=== PATIENT | female | born 2000 | race Caucasian/White ===

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

== ENCOUNTER 2023-05-25 14:48 | Emergency (ER) | payer OTHER, MEDICAID, SELFPAY ==
[2023-05-25 14:49] VITALS: BP 132/87; PULSE 100; RESP 18; TEMP 35.9; O2SAT 98; BMI 27.0
--- NOTE | 2023-05-25 15:12 | ED.VIS.FEGU ---
HPI HPI - Female History of Present Illness Chief Complaint: Vag Bld, Preg Informant: patient Narrative Narrative: Patient is a 22-year-old female G1, P0 presenting with concern for miscarriage. Patient's last menstrual period was April 05 which gives her an estimated due date of January 09 and places her at 7 weeks 1 day. Patient states that on Monday of this week (3 days ago) she had a positive test they did an ultrasound. She was told she was measuring approximately 5 weeks 1 day and there was a flutter/sac seen. Patient notes over the past few days she has had vaginal bleeding. She states she notices a little bit of blood on her underwear when she wipes there is blood. She states is brown and red in color. Denies abnormal discharge. Denies any urinary symptoms. Is not having cramping manage is some mild discomfort on her right side. No other complaints. Does plan on following up with [facility]. Her first appointment is June 05 per patient. PFSH PFSH Home Medications norgestimate 0.25 mg-ethinyl estradiol 35 mcg tablet (Sprintec (28)) 1 tab PO DAILY 05/24/18 [History Last Taken Unknown] Allergy/AdvReac Type Severity Reaction Status Date / Time No Known Allergies Allergy Verified 05/25/23 14:49 Social History Smoking Status: Never smoker ROS ROS ED Constitutional Constitutional ED: Denies chills or fever(s) Gastrointestinal Gastrointestinal: Denies abdominal pain, nausea or vomiting Genitourinary Genitourinary ED: Reports other Details: Vaginal bleeding, positive test ; Denies dysuria or urinary frequency Musculoskeletal Musculoskeletal: Denies arthralgias or myalgias Integumentary Denies rash Psychiatric Psychiatric: Reports anxiety Hematologic/Lymphatic Hematologic/Lymphatic: Denies easy bleeding or easy bruising EXAM Physical Exam Const Vital Signs: 05/25/23 14:49 Temperature 96.7 F L Temperature Source Temporal Pulse Rate 100 Respiratory Rate 18 Blood Pressure 132/87 H Blood Pressure Mean 102 Pulse Ox 98 Oxygen Delivery Method Room Air Positive well nourished and well developed General Appearance ED: well developed and NAD HEENT Reports moist mucous membranes Chest Wall inspection of chest normal and palpation of chest normal Resp normal respiratory effort and clear to auscultation bilaterally Cardio regular rate and regular rhythm GI normal to inspection, nondistended, normoactive bowel sounds, soft to palpation and non-tender Extremity normal to inspection Neuro oriented x3 Sensorium / Orientation: alert Motor Exam: Negative for general weakness Psych mental status grossly normal Skin no rashes or lesions noted and no wounds MDM MDM MDM Narrative Medical decision making narrative: Patient evaluated for vaginal bleeding with positive . She states that she has had a confirmed IUP at the center however we do not have records of this. Abdomen is soft and nontender. Lower suspicion for ectopic given that she is not having abdominal tenderness on exam and reports that confirmed IUP. Will perform bedside ultrasound however counseled that there is a chance we will not see anything just because of early gestational age. Will check Rh status, CBC and quant for further monitoring. Differential includes threatened , incomplete miscarriage, inevitable miscarriage and as described above less likely ectopic . Bedside ultrasound performed by myself not show any free fluid. There is a questionable gestational sac noted within the uterus however no clear pole. Will obtain formal ultrasound. Ultrasound shows gestational sac measuring 5 weeks and 5 days however there is no yolk sac or pole to confirm IUP. Question of just early versus intrauterine of unknown location. Ectopic cannot be entirely excluded however on serial abdominal exams she has no abdominal tenderness. Her quant is 3698 which should show an intrauterine gestation on transvaginal ultrasound. CBC is normal. Urinalysis shows some slight blood contamination but not consistent with UTI (0 white blood cells). Patient is O negtive and is given RhoGAM in the ER. Case is discussed with [facility] hotel reservation agent on-call, Alicja Velez. I reviewed the patient's quant, notified her that she received RhoGAM and the ultrasound results. She orders repeat quant for the patient to be performed on Monday. States the patient can go to any [facility] outpatient lab. In addition she instructs the patient to call the office tomorrow to schedule a follow-up appointment on Monday or Monday (in 4 to 5 days). This is relayed to the patient. Patient's is discharged home in stable condition. Is given return precautions including worsening bleeding, bleeding more than a pad an hour for more than 2 hours in a row or having severe/worsening abdominal pain. Lab Data Attestation: I reviewed the patient's lab results. Labs: Laboratory Results - last 24 hr 05/25/23 15:26 WBC 7.6 RBC 4.97 Hgb 14.4 Hct 43.3 MCV 87.1 MCH 29.0 MCHC 33.3 RDW Std Deviation 40.6 RDW Coeff of Fran 13.0 Plt Count 334 MPV 9.7 Immature Gran % (Auto) 0.500 Neut % (Auto) 70.0 Lymph % (Auto) 21.3 Anson % (Auto) 7.0 Eos % (Auto) 0.5 Baso % (Auto) 0.7 Absolute Neuts (auto) 5.3 Absolute Lymphs (auto) 1.61 Nucleated RBC % 0 HCG, Quant 3698 H Serum , Qual POSITIVE H Urine Color Yellow Urine Clarity Clear Urine pH 6.5 Ur Specific [place] 1.010 Urine Protein Negative Urine Glucose (UA) Normal Urine Ketones Negative Urine Occult Blood 250 H Urine Nitrite Negative Urine Bilirubin Negative Urine Urobilinogen Normal Ur Leukocyte Esterase Negative Urine RBC 0-5 SEEN Urine WBC 0 SEEN Ur Squamous Epith Cells 0-5 SEEN Urine Bacteria 1+ Urine Mucus 0 SEEN Blood Type O NEGATIVE Radiography Diagnostic Testing: Clinical Impression(s) from Imaging Studies Obstetrics Ultrasound 05/25/23 15:42 IMPRESSION: Intrauterine of unknown location. Although likely a very early intrauterine , ectopic cannot be entirely excluded. In a hemodynamically stable patient, a follow-up sonographic examination in 7-10 days in combination with serial beta hCG levels is recommended. Electronically Signed: Brian Riggins MD at 17:01 EDT Reading Location ID and State: [facility] / [place] Tel , Service support , Management Discussion w/another healthcare provider: Associate Financial Analyst Discharge Plan Triage Chief Complaint: Vag Bld, Preg ED Provider: Whitney Villa Dx/Rx/DC Orders Clinical Impression: of unknown anatomic location, Need for rhogam due to Rh negative mother, Miscarriage, threatened, early Instructions: ED Possible Miscarriage ... Prescriptions: No Action norgestimate-ethinyl estradiol [Sprintec (28)] 0 tablet 1 tab PO DAILY Primary Care Provider: Fernanda Vallecillo Referrals: Hoa Mahan DO [Med Staff - Active Staff] - 3-5 Days NOT,DEFINED [Non-Staff] - Activity Restrictions/Additional Instructions: [facility] has placed an order for repeat hCG quant ( hormone level). You can go to any outpatient [facility] lab to have this drawn on Monday. In addition please call the OB office tomorrow morning to schedule an appointment for Monday or Monday for close follow-up. Let them know that you were seen in the ER and health commissioner, Alicja Velez, instructed you to do this. If you develop worsening abdominal pain, heavy bleeding or further concerns please return to the emergency room. You did receive RhoGAM today.
[2023-05-25 15:40] LABS: Mucous, Urine 0 SEEN /hpf (<or=2+); White Blood Cells 0 SEEN /hpf (0-5)
--- NOTE | 2023-05-25 15:42 | US_ITS ---
INDICATION: vaginal bleeding, EXAMINATION: Ultrasound US OB Transvaginal TECHNIQUE: Transvaginal (for optimal evaluation of the adnexa) pelvic ultrasound was performed. Grayscale, spectral waveform, and color flow Doppler evaluation of the adnexa. COMPARISON: None. LMP: [04/05/2023 Beta-hCG: Unknown FINDINGS: UTERUS: 7.3 x 6.8 x 5.3 cm. RIGHT OVARY: 2.9 x 1.7 x 1.2 cm. Normal. LEFT OVARY: 3.7 x 1.8 x 1.7 cm. Probable corpus luteum. FREE FLUID: None. INTRAUTERINE GESTATIONAL SAC(s) (size/shape): Single. Mean sac diameter 0.89 cm corresponding 5 weeks 5 days EGA. YOLK SAC: Not identified POLE: Not identified. HEART MOTION: Not detected. PLACENTA: Not visualized due to age. SUBCHORIONIC HEMORRHAGE: Small. AMNIOTIC FLUID: Qualitatively normal. US/Transvaginal w/Preg US IMPRESSION: Intrauterine of unknown location. Although likely a very early intrauterine , ectopic cannot be entirely excluded. In a hemodynamically stable patient, a follow-up sonographic examination in 7-10 days in combination with serial beta hCG levels is recommended. Electronically Signed: Brian Riggins MD at 17:01 EDT ,
[2023-05-25 15:57] LABS: Absolute Lymphocyte Count 1.61 X10^3/uL (0.83-4.51); Absolute Neutrophil Count 5.3 X10^3/uL (2.0-7.7); Basophil# 0.05 X10^3/uL; Basophil% 0.7 % (0-1); Eosinophil# 0.04 X10^3/uL; Eosinophils% 0.5 % (0-5); Hematocrit 43.3 % (37-47); Hemoglobin 14.4 g/dL (12.0-15.0); Lymphocyte # 1.61 X10^3/ul (0.83-4.51); Lymphocyte % 21.3 % (19-41); Mean Corp Hgb Conc 33.3 g/dL (32-36); Mean Corpuscular Volume 87.1 fL (81-99); Mean Platelet Vol. 9.7 fl (6.2-12.0); Monocyte# 0.53 X10^3/uL; NRBC Flagged by Analyzer 0 % (0-5); Neutrophil # 5.29 X10^3/uL (2.7-7.7); Platelet Count 334 K/mm3 (150-450); RBC Distribution Width SD 40.6 fl (35.1-43.9); Red Blood Count 4.97 M/mm3 (4.2-5.4); White Blood Count 7.6 K/mm3 (4.4-11.0)
[2023-05-25 16:06] LABS: Color, Urine Yellow (Yellow); Glucose, Dipstick Normal (Normal); Ketone-Dipstick Negative (Negative); Leukocyte Esterase-Dipstick Negative /ul (Negative); Nitrite-Dipstick Negative (Negative); Occult Blood-Urine 250 /ul (Negative); Protein-Dipstick Negative (Negative); Urine Bilirubin Dipstick Negative (Negative); Urine Clarity Clear (Clear); Urine Urobilinogen Normal (Normal); Urine pH 6.5 (5.0 - 8.0)
[2023-05-25 16:17] LABS: Bacteria 1+ /hpf (None Seen); Red Blood Cells-Urine 0-5 SEEN /hpf (0-5); Squamous Epithelial Cells - UA 0-5 SEEN /hpf (5-10)
[2023-05-25 16:20] LABS: Internal QC Validated? YES +Cl - CLEAR BKGD; Pregnancy, Serum, hCG Quali. POSITIVE Negative
[2023-05-25 16:59] LABS: hCG Titer Quant., Serum 3698 mIU/mL (1-3)
[2023-05-25 17:44] VITALS: RESP 18
--- NOTE | 2023-05-25 17:50 | ED.RN ---
Spoke with blood bank to confirm that the full dose of rhogam is appropriate for the pt who is only 7 weeks , paperwork states to give if 13 weeks or more. Blood bank states that the mini dose is not available and full dose is ok to give.
== END 2023-05-25 17:58 | disposition home or self-care (01) ==
PROVIDERS: Emergency Provider Emergency Medicine; Visit Provider Emergency Medicine
DX: O20.0 Threatened abortion (principal); O26.891 Other specified pregnancy related conditions, first trimester; Z67.41 Type O blood, Rh negative; Z3A.01 Less than 8 weeks gestation of pregnancy
CPT/HCPCS: 76817; 81001; 84702; 84703; 85025; 86900; 86901; 96372; 99282; A4216; J2790

== ENCOUNTER → 2023-06-27 | Outpatient (CLI) | payer OTHER, MEDICAID, SELFPAY ==
[2023-06-27 14:01] LABS: hCG Titer Quant., Serum 17 mIU/mL (1-3)
== END | disposition home or self-care (01) ==
PROVIDERS: Referring Provider Obstetrics & Gynecology; Visit Provider Obstetrics & Gynecology
DX: O09.299 Supervision of pregnancy with other poor reproductive or obstetric history, unspecified trimester (principal); Z3A.00 Weeks of gestation of pregnancy not specified
CPT/HCPCS: 36415; 84702

== ENCOUNTER → 2023-06-29 | Outpatient (CLI) | payer OTHER, MEDICAID, SELFPAY ==
[2023-06-29 11:36] LABS: hCG Titer Quant., Serum 25 mIU/mL (1-3)
== END | disposition home or self-care (01) ==
PROVIDERS: Referring Provider Obstetrics & Gynecology; Visit Provider Obstetrics & Gynecology
DX: O09.299 Supervision of pregnancy with other poor reproductive or obstetric history, unspecified trimester (principal); Z3A.00 Weeks of gestation of pregnancy not specified
CPT/HCPCS: 36415; 84702

== ENCOUNTER → 2023-07-12 | Outpatient (CLI) | payer OTHER, MEDICAID, SELFPAY ==
[2023-07-12 09:29] LABS: hCG Titer Quant., Serum 873 mIU/mL (1-3)
== END | disposition home or self-care (01) ==
LOC: PAVLAB 08:32
PROVIDERS: Registered Nurse; Referring Provider Obstetrics & Gynecology; Visit Provider Obstetrics & Gynecology
DX: O09.299 Supervision of pregnancy with other poor reproductive or obstetric history, unspecified trimester (principal); Z3A.00 Weeks of gestation of pregnancy not specified
CPT/HCPCS: 36415; 84702

== ENCOUNTER → 2023-07-14 | Outpatient (CLI) | payer OTHER, MEDICAID, SELFPAY ==
[2023-07-14 12:08] LABS: hCG Titer Quant., Serum 1738 mIU/mL (1-3)
== END | disposition home or self-care (01) ==
LOC: PAVLAB 10:26
PROVIDERS: Referring Provider Obstetrics & Gynecology; Visit Provider Obstetrics & Gynecology
DX: N91.2 Amenorrhea, unspecified (principal)
CPT/HCPCS: 36415; 84702

== ENCOUNTER → 2023-07-21 | Outpatient (CLI) | payer OTHER, MEDICAID, SELFPAY ==
--- NOTE | 2023-07-21 14:13 | US_ITS ---
STUDY: FIRST TRIMESTER OBSTETRICAL ULTRASOUND REASON FOR EXAM: Female, 22 years old viability -- dating -- miscarriage on 05/26/23 LMP: June 30, 2023. TECHNIQUE: Transvaginal TECHNICAL QUALITY: Adequate. PRIOR ULTRASOUND: None. FINDINGS: There is visualization of a single gestational sac in a normal intrauterine position. The mean sac diameter (MSD) measures 1.03 cm, indicating an estimated gestational age (EGA) of 5 weeks, 5 days. The gestational sac shape is within normal limits. Small subchorionic hematoma measuring 5 mm x 12 mm x 4 mm. There is a visualized yolk sac. The yolk sac measures 2.9 mm. The placenta is non-visualized. There is visualization of a live embryo. The crown-rump length (CRL) measures 3.6 mm, indicating an estimated gestational age (EGA) of 6 weeks, 2 days. There is demonstrated cardiac activity with a heart rate of 119 bpm. The estimated gestation age (EGA) by LMP is 3 weeks, 0 days. The estimated date of delivery (GURINDER) by LMP is April 05, 2024. The estimated gestation age (EGA) by US is 6 weeks, 0 days. The estimated date of delivery (GURINDER) by US is March 15, 2024. The uterus measures 9 cm x 6.8 cm x 5.7 cm. There is no demonstrated uterine fibroid. The cervix is closed. The right ovary measures 2.7 cm x 2.6 x 1.2 cm. There is no right ovarian cyst. There is no visualized right adnexal mass or complex lesion. The left ovary measures 2.8 cm x 3.1 cm x 1.6 cm. 1.1 cm x 1.4 cm x 1.1 cm corpus luteum cyst. There is no visualized left adnexal mass or complex lesion. There is no fluid in the cul de sac. US/Transvaginal w/Preg US IMPRESSION: Single live intrauterine gestation with a mean gestational age of 6 weeks. Small subchronic hematoma. Electronically Signed: Camacho Lemus MD at 15:55 EST ,
== END | disposition home or self-care (01) ==
LOC: US 14:12
PROVIDERS: Referring Provider Obstetrics & Gynecology; Visit Provider Obstetrics & Gynecology
DX: O09.299 Supervision of pregnancy with other poor reproductive or obstetric history, unspecified trimester (principal); Z3A.00 Weeks of gestation of pregnancy not specified
CPT/HCPCS: 76817

== ENCOUNTER → 2023-08-14 | Outpatient (CLI) | payer OTHER, SELFPAY ==
--- OUTSIDE RECORDS SUMMARY | 2023-08-14 16:53 | XMS RPT_ITS | CCD ---
Author Name Unknown Address [address] [place] [address] Organization [facility] Care Team Providers Care 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 Name Role Phone Pending Provider Unavailable Unavailable Unavailable Unavailable PHYSICIAN, NONE Primary Care Physician Unavailab le Unavailable Primary Care Provider UnavailKAYCEE Grimes Primary Care Physician Gisele Diego MD Primary Care Provider Kaycee Iglesias MD Primary Care Provider [phone] RINKU MANUEL, ANNA Primary Care Physician Fernanda Foster APRN.CNP Primary Care Provide r Unavailable FERNANDA FOSTER CNP Attending Unavail able ANNA SOW Primary Care Unavaila ble PHYSICIAN, NONE Primary Care Unavailable JENNIFER BABIN MD Attending MD KAYCEE Travis Primary Care Unavailab le LILLIAN, ALICJA Referring Unavailable WHITE MAGGI Referring Unavailable PLOTTS, ALICJA Referring Unavailable PLOTTS, ALICJA Attending Unavailable PLOTTS, ALICJA Referring Unavailable PLOTTS, ALICJA Referring Unavailable PLOTTS, ALICJA Referring Unavailable WHITE MAGGI Attending Unavailable WHITE, MAGGI Attending Unavailable WHITE MAGGI Attending Unavailable Medications Current Medications Medication Drug Class(es) Dates Sig (Normalized) Sig (Original) acetaminophen 1000 mg oral tablet (2 sources) Start: 05-11-2021 take 1 dose by mouth every six hours Tylenol Dose : 1,000 mg =, Oral, q6hr Start Date: 05/11/21 Status: Ordered amoxicillin 875 mg / clavulanate 125 mg oral tablet (2 sources) Penicillin-class Antibacterial Start: 06-27-2022 End: 07-02-2022 take 1 tablet by mouth twice daily amoxicillin-clav ulanic acid (AUGMENTIN) 875-125 mg per tablet Take 1 tablet by mouth twice daily for 5 days. 10 tablet 0 06/27/2022 07/02/2022 Active Completed/Discontinued Medications Medication Drug Class(es) Dates Sig (Normalized) Sig (Original) [id number] 200 actuat albuterol 0.09 mg/actuat metered dose inhaler (13 sources) beta2-Adrenergic Agonist Start: 04-08-2022 PROAIR HFA 90 mcg/actuation inhaler INHALE 2 PUFFS NEEDED FOR SHORTNESS OF BREATH 0 04/08/2022 Active Problems Active Problems Problem Classification Problem Date Documented Date Episodic/Chronic Anxiety disorders (1 source) Anxiety 05-30-2022 Chronic Asthma (1 source) Asthma 05-30-2022 Chronic Complication of device; implant or graft (4 sources) Pain; Translations: [Pain due to genitourinary prosthetic devices, implants and grafts, initial encounter] Episodic Contraceptive and procreative management (1 source) Intrauterine contraceptive device in situ; Translations: [Encounter for routine checking of intrauterine contraceptive device] Episodic Esophageal disorders (2 sources) Gastro-esophageal reflux disease without esophagitis; Translations: [Gastro-esophageal reflux disease without esophagitis] Onset: 10-08-2021 Chronic Menstrual disorders (4 sources) Missed period; Translations: [Irregular menstruation, unspecified] Chronic Mood disorders (13 sources) Severe major depression, single episode, without psychotic features; Translations: [Major depressive disorder, single episode, severe without psychotic features] Onset: 06-01-2018 06-01-2018 Chronic Open wounds of extremities (1 source) Dog bite of hand; Translations: [Open wound of hand except finger(s) alone, without mention of complication] Episodic Other complications of (1 source) Spotting per vagina in ; Translations: [Spotting complicating , unspecified trimester] 05-25-2023 Episodic Other complications of (1 source) Spotting complicating , unspecified trimester; Translations: [Spotting in ] Onset: 06-01-2023 Episodic Other upper respiratory disease (1 source) Seasonal allergy 05-30-2022 Chronic Other upper respiratory disease (1 source) Chronic rhinitis; Translations: [Unspecified sinusitis (chronic)] Chronic Other upper respiratory infections (1 source) Sore throat symptom; Translations: [Acute pharyngitis, unspecified] Episodic Spontaneous (1 source) Miscarriage; Translations: [Complete or unspecified spontaneous without complication] 05-30-2023 Episodic Syncope (1 source) Syncope and collapse; Translations: [Syncope and collapse] Episodic Past or Other Problems Problem Classification Problem Date Documented Da te Episodic/Chronic Immunizations and screening for infectious disease (7 sources) Patient encounter status; Translations: [Other specified vaccination] Onset: 10-11-2022 Episodic Other injuries and conditions due to external causes (1 source) Injury of head; Translations: [Unspecified injury of head, initial encounter] Onset: 05-11-2021 Episodic Other screening for suspected conditions (not mental disorders or infectious disease) (2 sources) Cancer cervix screening status; Translations: [Encounter for screening for malignant neoplasm of cervix] Onset: 10-11-2022 Episodic Other skin disorders (13 sources) Acne vulgaris; Translations: [Acne vulgaris] Onset: 09-14-2017 09-14-2017 Episodic Urinary tract infections (13 sources) Recurrent urinary tract infection; Translations: [Urinary tract infection, site not specified] Onset: 02-06-2020 02-06-2020 Episodic Results Test Name Value Interpretation Reference Range Facil ity Vital Signs Date Time Vital Sign Value Performing Clinician Facility 05-30-2023 14:35-0400 Body weight 69.67 kg Alicja Velez APRN.CNM Work Phone: [facility] 05-30-2023 14:35-0400 Diastolic blood pressure 64 mm[Hg] Alicja Velez APRN.CNM Work Phone: [facility] 05-30-2023 14:35-0400 Systolic blood pressure 100 mm[Hg] Alicja Velez APRN.CNM Work Phone: [facility] 10-11-2022 08:56-0400 Body height 160 cm Maggi White APRN.CNP Work Phone: [facility] 10-11-2022 08:56-0400 Body weight 58.97 kg Maggi White APRN.CNP Work Phone: [facility] 10-11-2022 08:56-0400 Diastolic blood pressure 70 mm[Hg] Maggi White APRN.SMELLER Work Phone: [facility] 10-11-2022 08:56-0400 Systolic blood pressure 114 mm[Hg] Maggi White INSURANCE CLAIMS EXAMINER.SMELLER Work Phone: [facility] 08-29-2022 13:54-0500 Body weight 59.88 kg Maggi White APRN.SMELLER Work Phone: [facility] 08-29-2022 13:54-0500 Diastolic blood pressure 58 mm[Hg] Maggi White APRN.SMELLER Work Phone: [facility] 08-29-2022 13:54-0500 Systolic blood pressure 100 mm[Hg] Maggi White INSURANCE CLAIMS EXAMINER.SMELLER Work Phone: [facility] 08-02-2022 11:14-0500 Body weight 60.33 kg Maggi White APRN.SMELLER Work Phone: [facility] 08-02-2022 11:14-0500 Diastolic blood pressure 52 mm[Hg] Maggi White APRN.SMELLER Work Phone: [facility] 08-02-2022 11:14-0500 Systolic blood pressure 96 mm[Hg] Maggi White APRN.SMELLER Work Phone: [facility] 06-27-2022 08:17-0500 Body temperature 98.91 [degF] Becky Grewal APRN.SMELLER Work Phone: [facility] 06-27-2022 08:17-0500 Body weight 58.97 kg Becky Greawl APRN.SMELLER Work Phone: [facility] 06-27-2022 08:17-0500 Diastolic blood pressure 72 mm[Hg] Becky Grewal APRN.SMELLER Work Phone: [facility] 06-27-2022 08:17-0500 Heart rate 92 /min Becky Grewal APRN.SMELLER Work Phone: [facility] 06-27-2022 08:17-0500 Respiratory rate 18 /min Becky Grewal APRN.SMELLER Work Phone: [facility] 06-27-2022 08:17-0500 SaO2% (BldA) [Mass fraction] 97 % Becky Grewal APRN.SMELLER Work Phone: [facility] 06-27-2022 08:17-0500 Systolic blood pressure 126 mm[Hg] Becky Grewal APRN.SMELLER Work Phone: [facility] 03-07-2022 06:55-0400 Body weight 61.78 kg Maggi White APRN.SMELLER Work Phone: [facility] 03-07-2022 06:55-0400 Diastolic blood pressure 60 mm[Hg] Maggi White APRN.SMELLER Work Phone: [facility] 03-07-2022 06:55-0400 Systolic blood pressure 98 mm[Hg] Maggi White APRN.SMELLER Work Phone: [facility] 10-04-2021 09:43-0500 Body height 154.94 cm Clarke Garcia MD Work Phone: [facility] Work Phone: 10-04-2021 09:43-0500 Body mass index (BMI) [Ratio] 25.7 kg/m2 Clarke Garcia MD Work Phone: [facility] Work Phone: 10-04-2021 09:43-0500 Body surface area Derived from formula 1.6 m2 Clarke Garcia MD Work Phone: [facility] Work Phone: 10-04-2021 09:43-0500 Body temperature 98 [degF] Clarke Garcia MD Work Phone: [facility] Work Phone: 10-04-2021 09:43-0500 Body weight 61.7 kg Clarke Garcia MD Work Phone: [facility] Work Phone: 10-04-2021 09:43-0500 Diastolic blood pressure 89 mm[Hg] Clarke Garcia MD Work Phone: [facility] Work Phone: 10-04-2021 09:43-0500 Heart rate 63 /min Clarke Garcia MD Work Phone: [facility] Work Phone: 10-04-2021 09:43-0500 Respiratory rate 16 /min Clarke Garcia MD Work Phone: [facility] Work Phone: 10-04-2021 09:43-0500 SaO2% (BldA) [Mass fraction] 99 % Clarke Garcia MD Work Phone: [facility] Work Phone: 10-04-2021 09:43-0500 Systolic blood pressure 128 mm[Hg] Clarke Garcia MD Work Phone: [facility] Work Phone: 10-04-2021 09:43-0500 3 1 Clarke Garcia MD Work Phone: [facility] Work Phone: Encounters Encounter Date Encounter Type Care Provider Facility Start: 06-14-2023 End: 06-15-2023 ambulatory [facility] Facility:[facility] Start: 06-08-2023 End: 06-09-2023 ambulatory [facility] Facility:[facility] Start: 06-05-2023 End: 06-06-2023 ambulatory [facility] Facility:[facility] Start: 06-01-2023 End: 06-02-2023 ambulatory [facility] Facility:[facility] Start: 05-30-2023 End: 05-30-2023 ambulatory [facility] Facility:[facility] Start: 05-30-2023 End: 05-30-2023 Patient encounter procedure Alicja Velez ENEDELIA.CNM Work Phone: OB/Gynecology Procedures Date Procedure Procedure Detail Performing Clinician Start: 08-22-2022 Us transvaginal Maggi layton APRN.CNP Work Phone: Start: 06-27-2022 STREP A MOLECULAR (POC) [facility] Provider Start: 03-07-2022 Urine test visual color cmprsn meths Maggi White APRN.SMELLER Work Phone: Start: 02-28-2022 Echo tthrc r-t 2d w/wom-mode compl spec&colr d Gisele Diego MD Work Phone: None (qualifier value) [facility] ARANGO MD Plan of Treatment Date Care Activity Detail Author Start: 10-05-2031 DTaP/Tdap/Td vaccine (8 - Td or Tdap) DTaP/Tdap/Td vaccine (8 - Td or Tdap) [facility] Start: 10-05-2031 Urine microalbumin profile DTaP,Tdap,Td Vaccine (8 - Td or Tdap) [facility] Start: 10-11-2025 PAP TESTING PAP TESTING [facility] Start: 10-12-2023 CHLAMYDIA SCREENING (18-24) CHLAMYDIA SCREENING (18-24) [facility] Start: 10-12-2023 GC (GONORRHEA) SCREENING (18-24) GC (GONORRHEA) SCREENING (18-24) [facility] Start: 08-22-2023 Urine microalbumin profile [facility] Start: 03-31-2023 Influenza vaccination Influenza Vaccine (#1) [facility] Start: 2022 PAP TESTING PAP TESTING [facility] Start: 08-02-2022 End: 08-02-2023 PELVIC US WHI PELVIC US WHI Anc Imaging Routine Dysmenorrhea Pain due to intrauterine contraceptive device (IUD), initial encounter (HCC) Expected: 08/02/2022, Expires: 08/02/2023 [facility] Work Phone: Immunizations Immunization Date Immunization Notes Care Provider Fa cility 10-04-2021 tetanus toxoid, redu beryl diphtheria toxoid, and acellular pertussis vaccine, adsorbed; Translations: [Tdap] Clarke Garcia MD Work Phone: [facility] Work Phone: Payers Date Payer Category Payer Private Health Insurance AEKAMLESH LIANG POS [id number] 2023-Present [phone] [address] [place] [address] POS [id number] 2023 Private Health Insurance [id number] 2022 Medicaid [id number] 2021 Unknown [id number] 2020 Medicaid [id number] 2020 Unknown [id number] 2001 Unknown [id number] 2001 Unknown [id number] 2001 Unknown [id number] Unknown [facility] Social History Date Type Detail Facility Never smoker [facility] Sex Assigned At Female [facility] Tobacco smoking status [facility] Tobacco smoking consumption unknown [facility] Start: 2001 Sex Assigned At Not on file [facility] Work Phone: Start: 05-11-2021 End: 03-07-2022 Never smoked tobacco (finding) [facility] History of tobacco use Passive smoker [facility] Work Phone: Start: 03-07-2022 Tobacco use and exposure Smokeless tobacco non-user [facility] Work Phone: Start: 03-07-2022 End: 08-02-2022 Alcohol intake Current non-drinker of alcohol (finding) [facility] Start: 03-07-2022 Tobacco Comment mother smokes inside [facility] Start: 02-25-2022 End: 06-27-2022 Exposure to SARS-CoV-2 (event) Not sure [facility] Work Phone: Start: 08-22-2022 End: 10-11-2022 History of Social function [facility] Start: 08-22-2022 End: 10-11-2022 Tobacco use panel [facility] National Score (1-100), lower number is lower risk 56 [facility] Clinical Notes 05-11-2021 to 05-30-2023 Alicja Velez APRN.CNM - 05/30/2023 2:31 PM EDTTelephone Encounter - Arely Akins RN - 05/30/2023 10:24 AM EDTTelephone Encounter - Arely Akins RN - 05/30/2023 10:24 AM EDT Note Date & Type Note Facility 05-30-2023 Note HNO ID: [id number] Author: Alicja Velez APRN.CNM Service: ? Author Type: Sex Offender Treatment Professional Type: Progress Notes Filed: 05/30/2023 3:13 PM Note Text: Makeda Pete is a 22 year old female who presents with boyfriend for follow up visit LMP was 04/05/23. Patient had positive test and was seen at [facility]. US completed on 05/22/23 that stated 5w1d gestation. Patient began spotting last Monday which turned into heavy bleeding by Monday. She was seen at ED. US completed and no IUP seen. HGB stable and Rhogam injection given. Patient counseled on miscarriage and repeating HCG levels. HCG level last week was 3,698 and 240 yesterday. She is still having bleeding on and off but reports not heavy and no further cramps. OB History T0 L0 SAB0 IAB0 Ectopic0 Multiple0 Live Births0 Form Tamping Machine Operator History LMP: 09/21/2022, Recent Age at Menarche: 13 Age at First : Age at Menopause: Form Tamping Machine Operator History Comments: Sexual Activity: Yes; Male; Nuvaring Contraception: Inserts PAST MEDICAL HISTORY Diagnosis Date Asthma Depression Generalized anxiety disorder with panic attacks Torn ligament 11/28/2014 right ankle PAST SURGICAL HISTORY Procedure Laterality Date NONE FAMILY HISTORY Problem Relation Age of Onset Breast Cancer Mother 38 lumpectomy, radiation Hypertension Father Hypertension Paternal Grandmother Thyroid Paternal Grandmother Social History Tobacco Use Smoking status: Never Passive exposure: Yes Smokeless tobacco: Never Tobacco comments: mother smokes inside Vaping Use Vaping Use: Never used Substance Use Topics Alcohol use: No Drug use: No Current Outpatient Medications Medication Sig citalopram hydrobromide (CELEXA) 10 mg tablet citalopram (CELEXA) 20 mg tablet hydrOXYzine HCl (ATARAX) 50 mg tablet Take 1 tablet by mouth every afternoon. Etonogestrel-Ethinyl Estradiol (NUVARING) 0.12-0.015 mg/24 hr vaginal ring Use 1 Each vaginally as directed. INSERT ONE(1) RING VAGINALLY AND LEAVE IN PLACE FOR THREE WEEKS, THEN REMOVE FOR 1 WEEK. PROAIR HFA 90 mcg/actuation inhaler INHALE 2 PUFFS NEEDED FOR SHORTNESS OF BREATH ondansetron (ZOFRAN) 4 mg tablet Take by mouth every 8 hours as needed for nausea/vomiting. citalopram (CELEXA) 20 mg tablet 1 tab(s) famotidine (PEPCID) 20 mg tablet TAKE 1 TABLET BY MOUTH TWICE A DAY FOR 30 DAYS hydrOXYzine HCl (ATARAX) 10 mg tablet Take 10 mg by mouth three times daily as needed. No current facility-administered medications for this visit. Allergies As of Date: 05/30/2023 (No Known Allergies) Fully Assessed 05/30/2023 REVIEW OF SYSTEMS Abdomen: No bloating, early satiety, indigestion, or increased flatulence. No abdominal pain, nausea, vomiting, diarrhea, or constipation. Bladder: No dysuria, gross hematuria, urinary frequency, urinary urgency, or incontinence. Breast: No breast lumps, nipple d/c, overlying skin changes, redness or skin retraction. Expanded ROS: N/A Allergies and current medication updated:Yes EXAM: BP 100/64 Wt 153 lb 9.6 oz (69.7kg) LMP 09/21/2022 GENERAL: pleasant, female in no apparent distress HEENT: Normocephalic NECK: Supple and full range of motion DERMATOLOGY: Normal and without lesions BREAST: deferred CHEST: Normal inspiratory effort ABDOMEN: Deferred PELVIC: deferred BIMANUAL: deferred NEURO: alert and oriented x3,exam grossly non-focal EXTREMITIES: normal ASSESSMENT/PLAN: 1. Spontaneous miscarriage - ICD9: 634.90, ICD10: O03.9 - Support provided - Continue having HCG levels drawn until reaches zero - Rhogam given - Discussed control options, patient desires - Continue taking vitamin - RTO as needed Alicja Velez APRN.[facility] 05-30-2023 History of Presen t illness Narrative Makeda Pete is a 22 year old female who presents with boyfriend for follow up visit LMP was 04/05/23. Patient had positive test and was seen at [facility]. US completed on 05/22/23 that stated 5w1d gestation. Patient began spotting last Monday which turned into heavy bleeding by Monday. She was seen at ED. US completed and no IUP seen. HGB stable and Rhogam injection given. Patient counseled on miscarriage and repeating HCG levels. HCG level last week was 3,698 and 240 yesterday. She is still having bleeding on and off but reports not heavy and no further cramps. OB History T0 L0 SAB0 IAB0 Ectopic0 Multiple0 Live Births0 Form Tamping Machine Operator History LMP: 09/21/2022, Recent Age at Menarche: 13 Age at First : Age at Menopause: Form Tamping Machine Operator History Comments: Sexual Activity: Yes; Male; Nuvaring Contraception: Inserts PAST MEDICAL HISTORY Diagnosis Date Asthma Depression Generalized anxiety disorder with panic attacks Torn ligament 11/28/2014 right ankle PAST SURGICAL HISTORY Procedure Laterality Date NONE FAMILY HISTORY Problem Relation Age of Onset Breast Cancer Mother 38 lumpectomy, radiation Hypertension Father Hypertension Paternal Grandmother Thyroid Paternal Grandmother Social History Tobacco Use Smoking status: Never Passive exposure: Yes Smokeless tobacco: Never Tobacco comments: mother smokes inside Vaping Use Vaping Use: Never used Substance Use Topics Alcohol use: No Drug use: No Current Outpatient Medications Medication Sig citalopram hydrobromide (CELEXA) 10 mg tablet citalopram (CELEXA) 20 mg tablet hydrOXYzine HCl (ATARAX) 50 mg tablet Take 1 tablet by mouth every afternoon. Etonogestrel-Ethinyl Estradiol (NUVARING) 0.12-0.015 mg/24 hr vaginal ring Use 1 Each vaginally as directed. INSERT ONE(1) RING VAGINALLY AND LEAVE IN PLACE FOR THREE WEEKS, THEN REMOVE FOR 1 WEEK. PROAIR HFA 90 mcg/actuation inhaler INHALE 2 PUFFS NEEDED FOR SHORTNESS OF BREATH ondansetron (ZOFRAN) 4 mg tablet Take by mouth every 8 hours as needed for nausea/vomiting. citalopram (CELEXA) 20 mg tablet 1 tab(s) famotidine (PEPCID) 20 mg tablet TAKE 1 TABLET BY MOUTH TWICE A DAY FOR 30 DAYS hydrOXYzine HCl (ATARAX) 10 mg tablet Take 10 mg by mouth three times daily as needed. No current facility-administered medications for this visit. Allergies As of Date: 05/30/2023 (No Known Allergies) Fully Assessed 05/30/2023 REVIEW OF SYSTEMS Abdomen: No bloating, early satiety, indigestion, or increased flatulence. No abdominal pain, nausea, vomiting, diarrhea, or constipation. Bladder: No dysuria, gross hematuria, urinary frequency, urinary urgency, or incontinence. Breast: No breast lumps, nipple d/c, overlying skin changes, redness or skin retraction. Expanded ROS: N/A Allergies and current medication updated:Yes EXAM: BP 100/64 Wt 153 lb 9.6 oz (69.7kg) LMP 09/21/2022 GENERAL: pleasant, female in no apparent distress HEENT: Normocephalic NECK: Supple and full range of motion DERMATOLOGY: Normal and without lesions BREAST: deferred CHEST: Normal inspiratory effort ABDOMEN: Deferred PELVIC: deferred BIMANUAL: deferred NEURO: alert and oriented x3,exam grossly non-focal EXTREMITIES: normal ASSESSMENT/PLAN: 1. Spontaneous miscarriage - ICD9: 634.90, ICD10: O03.9 - Support provided - Continue having HCG levels drawn until reaches zero - Rhogam given - Discussed control options, patient desires - Continue taking vitamin - RTO as needed Alicja Velez APRN.CNM documented in this encounter [facility] 05-30-2023 Miscellaneous Notes Formattin g of this note might be different from the original. Patient has visit with you this afternoon at 2:45p for missed ab f/u. Okay to wait and discuss this with patient then? Arely Akins RN ----- Message from Alicja Velez APRN.CNM sent at 05/30/2023 9:04 AM EDT ----- HCG level is 240 which is decreased from 3,698 on 05/25/23. This is consistent with a miscarriage. Please have patient follow up with another HCG level next week until level reaches zero. Alicja Velez APRN.CNM documented in this encounter [facility] 05-29-2023 Miscellaneous Notes Formattin g of this note might be different from the original. Patient did not go to lab on Monday. Called patient and she will go today. Arely Akins RN Patient called and appointment scheduled for Monday. Patient will get repeat HCG drawn on Monday. Keep phone note open for HCG results. Shannon Lora RN Patient seen at [facility] tonight in ED for vaginal spotting. Patient reports LMP 04/05/[address] gestational age at 7.1 weeks. TVUS completed in ED and shows gestational sac (measuring approximately 5 weeks) and no pole or yolk sac. Patient has minimal bleeding. HCG tonight was 3,698. Patient is RH negative and was given a dose of Rhogam. Bleeding precautions reviewed and she was discharged home. Patient aware that she will need follow up HCG level at [facility] lab. Order placed. Please notify patient and assist with scheduling her to be seen in office next week. Monday with me should be fine! Thank you. Keep note open until follow up HCG level. Alicja Velez APRN.CNM documented in this encounter [facility] 05-25-2023 Miscellaneous Notes Formattin g of this note might be different from the original. Pt notified via [facility]. Will await further response from pt. Sylvia Driscoll LPN Please just have patient monitor at home. Review bleeding precautions. Keep scheduled appointment. Alicja Velez APRN.CNM LMP 04/05/23 7w1d Patient calling c/o spotting x3 days. Notices mostly only with wiping. She did have u/s done on 05/[facility] and bleeding started after that. She was told she was measuring 5w1d that day though. No cramping, pain or other concerns. NOB scheduled with 06/05. Please advise. Arely Akins RN documented in this encounter [facility] 10-11-2022 Note HNO ID: [id number] Author: Maggi White APRN.LIU Service: ? Author Type: Nurse Practitioner Type: Progress Notes Filed: 10/11/2022 9:23 AM Note Text: [employer] offered:Patient maxine De Jesus Is a 22 year old who presents for an annual gynecologic exam without complaints. Menses: cycles every 28 days and 6 days of flow. Contraception: Nuva Ring HPV vaccine: Yes Last Pap: never HPV: N/A History of abnormal pap: No Last mammogram: never Sexually active: Yes History of STDS: None Patient concerns for STD exposure: No. 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 PAST MEDICAL HISTORY Diagnosis Date Torn ligament 11/2014 right ankle PAST SURGICAL HISTORY Procedure Laterality Date NONE FAMILY HISTORY Problem Relation Age of Onset Hypertension Father Hypertension Paternal Grandmother Thyroid Paternal Grandmother SOCIAL HISTORY Social History Tobacco Use Smoking status: Never Passive exposure: Yes Smokeless tobacco: Never Tobacco comments: mother smokes inside Vaping Use Vaping Use: Never used Substance Use Topics Alcohol use: No Drug use: No REVIEW OF SYSTEMS Abdomen: No abdominal pain, nausea, vomiting, diarrhea, or constipation. No bloating, early satiety, indigestion, or increased flatulence. Bladder: No dysuria, gross hematuria, urinary frequency, urinary urgency, or incontinence. Breast: No breast lumps, nipple d/c, overlying skin changes, redness or skin retraction. Allergies and current medication updated:Yes EXAM: BP 114/70 Ht 5' 3 (1.60m) Wt 130 lb (59.0kg) LMP 09/21/2022 BMI 23.03 kg/(m2). GENERAL: pleasant, female in no apparent distress HEENT: Normocephalic, atraumatic, mucus membranes moist, and no lesions NECK: Supple, full range of motion, no adenopathy, and thyroid normal DERMATOLOGY: Normal, without lesions, non-icteric, and non-hirsute BREAST: soft, non-tender, symmetric, no dominant mass, normal nipple-areolar complex, no lymphadenopathy, and no nipple discharge CHEST: Normal inspiratory effort ABDOMEN: soft, non-tender, and no masses PELVIC: external genitalia normal, normal Bartholin's glands, urethra, [place]'s glands, no vulvar lesions, no cervical lesions, good vaginal support, physiologic discharge present, normal appearing perineal body and perianal region BIMANUAL: uterus normal size, shape and consistency, no adnexal masses, and non-tender RECTOVAGINAL: deferred. NEURO: alert and oriented x3,exam grossly non-focal EXTREMITIES: normal ASSESSMENT/PLAN: 1) Health maintenance: Pap done with reflex HPV. Nutrition, exercise and routine health maintenance exams reviewed. HPV vaccine: completed series 2) Contraception: Nexplanon. Contraceptive options reviewed and information provided. 3) STD screening: Accepted STD check for Gonorrhea and Chlamydia. 4) Follow up one year or sooner as needed Maggi White APRN.CNP [facility] 10-11-2022 Instructions Maggi White APRN.CNP - 10/11/2022 9:07 AM EDT Check on BRCA testing of mom documented in this encounter [facility] 10-11-2022 History of Presen t illness Narrative Vp Analytics offered:Patient maxine De Jesus Is a 22 year old who presents for an annual gynecologic exam without complaints. Menses: cycles every 28 days and 6 days of flow. Contraception: Nuva Ring HPV vaccine: Yes Last Pap: never HPV: N/A History of abnormal pap: No Last mammogram: never Sexually active: Yes History of STDS: None Patient concerns for STD exposure: No. 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 PAST MEDICAL HISTORY Diagnosis Date Torn ligament 11/2014 right ankle PAST SURGICAL HISTORY Procedure Laterality Date NONE FAMILY HISTORY Problem Relation Age of Onset Hypertension Father Hypertension Paternal Grandmother Thyroid Paternal Grandmother SOCIAL HISTORY Social History Tobacco Use Smoking status: Never Passive exposure: Yes Smokeless tobacco: Never Tobacco comments: mother smokes inside Vaping Use Vaping Use: Never used Substance Use Topics Alcohol use: No Drug use: No REVIEW OF SYSTEMS Abdomen: No abdominal pain, nausea, vomiting, diarrhea, or constipation. No bloating, early satiety, indigestion, or increased flatulence. Bladder: No dysuria, gross hematuria, urinary frequency, urinary urgency, or incontinence. Breast: No breast lumps, nipple d/c, overlying skin changes, redness or skin retraction. Allergies and current medication updated:Yes EXAM: BP 114/70 Ht 5' 3 (1.60m) Wt 130 lb (59.0kg) LMP 09/21/2022 BMI 23.03 kg/(m^2). GENERAL: pleasant, female in no apparent distress HEENT: Normocephalic, atraumatic, mucus membranes moist, and no lesions NECK: Supple, full range of motion, no adenopathy, and thyroid normal DERMATOLOGY: Normal, without lesions, non-icteric, and non-hirsute BREAST: soft, non-tender, symmetric, no dominant mass, normal nipple-areolar complex, no lymphadenopathy, and no nipple discharge CHEST: Normal inspiratory effort ABDOMEN: soft, non-tender, and no masses PELVIC: external genitalia normal, normal Bartholin's glands, urethra, [place]'s glands, no vulvar lesions, no cervical lesions, good vaginal support, physiologic discharge present, normal appearing perineal body and perianal region BIMANUAL: uterus normal size, shape and consistency, no adnexal masses, and non-tender RECTOVAGINAL: deferred. NEURO: alert and oriented x3,exam grossly non-focal EXTREMITIES: normal ASSESSMENT/PLAN: 1) Health maintenance: Pap done with reflex HPV. Nutrition, exercise and routine health maintenance exams reviewed. HPV vaccine: completed series 2) Contraception: Nexplanon. Contraceptive options reviewed and information provided. 3) STD screening: Accepted STD check for Gonorrhea and Chlamydia. 4) Follow up one year or sooner as needed Maggi White APRN.LIU documented in this encounter [facility] 08-29-2022 Note HNO ID: [id number] Author: Maggi White APRN.CNP Service: ? Author Type: Nurse Practitioner Type: Progress Notes Filed: 08/29/2022 2:38 PM Note Text: Vp Analytics offered: Patient declines. Makeda presents for removal of IUD due to pain. UNIVERSAL PROTOCOL / SAFETY CHECKLIST Procedure to be Performed: IUD removal Sign In: A Moment of CARE was completed. Personnel directly involved with the procedure wore the appropriate PPE (Personal Protective Equipment). Patient/Surrogate Stated/Verified: PATIENT VERIFIED(optional for EMERGENT procedures): Patient name, Date of , Relevant allergies, and The intended procedure Time Out Communication: Intended patient and procedure match the source documents. Consent documented and matches the intended procedure. Sign Out: SIGN OUT (optional for EMERGENT procedures): All instruments, equipment, possible retained foreign bodies accounted for. Post-procedure follow-up management communicated and Plan of Care Visit completed when applicable. Maggi White APRN.CNP PROCEDURE: Speculum placed in vagina, IUD string visualized and grasped with ring forceps. ASSESSMENT/PLAN: IUD removed without difficulty, intact, and patient tolerated procedure well. Contraception plans: Numineing Maggi White APRN.CNP [facility] 08-29-2022 History of Presen t illness Narrative Vp Analytics offered: Patient declines. Makeda presents for removal of IUD due to pain. UNIVERSAL PROTOCOL / SAFETY CHECKLIST Procedure to be Performed: IUD removal Sign In: A Moment of CARE was completed. Personnel directly involved with the procedure wore the appropriate PPE (Personal Protective Equipment). Patient/Surrogate Stated/Verified: PATIENT VERIFIED(optional for EMERGENT procedures): Patient name, Date of , Relevant allergies, and The intended procedure Time Out Communication: Intended patient and procedure match the source documents. Consent documented and matches the intended procedure. Sign Out: SIGN OUT (optional for EMERGENT procedures): All instruments, equipment, possible retained foreign bodies accounted for. Post-procedure follow-up management communicated and Plan of Care Visit completed when applicable. Maggi White APRN.CNP PROCEDURE: Speculum placed in vagina, IUD string visualized and grasped with ring forceps. ASSESSMENT/PLAN: IUD removed without difficulty, intact, and patient tolerated procedure well. Contraception plans: Aida White APRN.CNP documented in this encounter [facility] 08-25-2022 Miscellaneous Notes Formattin g of this note might be different from the original. Order signed. Maggi White APRN.CNP Spoke with pt and pt stated that she has made an appointment to have the IUD removed as she feels that this has made everything worse. Pt wanting to further discuss control options. See pended order below and then can be attached to her visit on 08/29/22. Sylvia Driscoll LPN documented in this encounter [facility] 08-22-2022 Note HNO ID: [id number] Author: Teresa Nash RDMS Service: ? Author Type: Single Spindle Screw Machine Operator Type: Progress Notes Filed: 08/22/2022 9:53 AM Note Text: Radiology Service Progress Note PATIENT NAME: Makeda Pete DATE OF SERVICE: August 22, 2022 TIME: 9:53 AM PATIENT IDENTITY VERIFICATION COMPLETED USING TWO (2) IDENTIFIERS: Name and Date of confirmed by patient verbally. FALL SCREENING: Has the patient had 2 falls in the last year or 1 fall with injury or currently using an Ambulatory Assistive Device (Walker, Cane, Wheelchair, Crutches, etc.)? No PATIENT GENDER DATA: Female. status: : No status: NO. PATIENT RELEVANT IMPLANT DATA REVIEWED: Not Applicable RADIOLOGY DEPARTMENT: Ultrasound PERIPHERAL IV DATA: Not applicable SIGNED BY: Teresa Nash RDMS August 22, 2022 9:53 AM [facility] 08-22-2022 History of Presen t illness Narrative Radiology Service Progress Note PATIENT NAME: Makeda Pete DATE OF SERVICE: August 22, 2022 TIME: 9:53 AM PATIENT IDENTITY VERIFICATION COMPLETED USING TWO (2) IDENTIFIERS: Name and Date of confirmed by patient verbally. FALL SCREENING: Has the patient had 2 falls in the last year or 1 fall with injury or currently using an Ambulatory Assistive Device (Walker, Cane, Wheelchair, Crutches, etc.)? No PATIENT GENDER DATA: Female. status: : No status: NO. PATIENT RELEVANT IMPLANT DATA REVIEWED: Not Applicable RADIOLOGY DEPARTMENT: Ultrasound PERIPHERAL IV DATA: Not applicable SIGNED BY: Teresa Nash RDMS August 22, 2022 9:53 AM documented in this encounter [facility] 08-12-2022 Miscellaneous Notes Formattin g of this note might be different from the original. Patient returned call. Appointment rescheduled to radiology department. Lily Ppier RN Please file radiology pelvic u/s order. Left message for patient to call office so u/s on 08/15 can be moved to radiology instead to make room for more urgent OB patient. Arely Akins RN documented in this encounter [facility] 08-02-2022 Note HNO ID: [id number] Author: Maggi White APRN.SMELLER Service: ? Author Type: Nurse Practitioner Type: Progress Notes Filed: 08/02/2022 12:23 PM Note Text: Makeda Pete is a 21 year old female who presents for problem visit cramping with IUD HPI: Mirena IUD inserted 02/07/2020. It has resulted in light menstrual bleeding monthly but now she has increased cramping. Severe cramping with throbbing, sharp pains to right and/or left sided pelvic pain. Painful episodes last for a couple of hours and is nagging 4-5/10. Sometimes cramping is premenstrual and sometimes it is the first half of menses. Uses Diva menstrual cup and sometimes blood has formed a clot when she empties it. Menses every month and lasting either 3-5 days of light flow or 7 days of spotting. Ibuprofen is somewhat effective. 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 PAST MEDICAL HISTORY Diagnosis Date Torn ligament 11/2014 right ankle PAST SURGICAL HISTORY Procedure Laterality Date NONE FAMILY HISTORY Problem Relation Age of Onset Hypertension Father Hypertension Paternal Grandmother Thyroid Paternal Grandmother Social History Tobacco Use Smoking status: Never Passive exposure: Yes Smokeless tobacco: Never Tobacco comments: mother smokes inside Vaping Use Vaping Use: Never used Substance Use Topics Alcohol use: No Drug use: No Current Outpatient Medications Medication Sig PROAIR HFA 90 mcg/actuation inhaler INHALE 2 PUFFS NEEDED FOR SHORTNESS OF BREATH fluticasone (FLOVENT) 44 mcg/actuation inhaler Inhale as instructed. citalopram (CELEXA) 20 mg tablet 1 tab(s) famotidine (PEPCID) 20 mg tablet TAKE 1 TABLET BY MOUTH TWICE A DAY FOR 30 DAYS traZODone (DESYREL) 50 mg tablet Take 50 mg by mouth daily at bedtime. hydrOXYzine HCl (ATARAX) 10 mg tablet Take 10 mg by mouth three times daily as needed. ondansetron (ZOFRAN) 4 mg tablet Take by mouth every 8 hours as needed for nausea/vomiting. levonorgestrel (MIRENA) 20 mcg/24 hours (5 yrs) 52 mg IUD 1 Each by INTRAUTERINE route as directed. LOT # [id number] EXP 12/27/21 Sylvia Americo [facility] No current facility-administered medications for this visit. Allergies As of Date: 08/02/2022 (No Known Allergies) Fully Assessed 06/27/2022 REVIEW OF SYSTEMS Abdomen: see HPI Allergies and current medication updated:Yes EXAM: BP 96/52 Wt 133 lb (60.3kg) LMP 12/23/2021 GENERAL: pleasant, female in no apparent distress CHEST: Normal inspiratory effort NEURO: alert and oriented x3,exam grossly non-focal ASSESSMENT/PLAN: 1. Pain due to intrauterine contraceptive device (IUD), initial encounter (HCC) - ICD9: 996.76, 338.18, ICD10: T83.84XA (primary diagnosis) - Strings have not been visible since insertion. Correct location on US 02/07/2020. Discussed contraceptive options with RBA if she decides to have IUD removed. - PELVIC US WHI 2. Dysmenorrhea - ICD9: 625.3, ICD10: N94.6 - see above. Discussed that intermittent alternating pelvic pain could be caused by ovarian cyst and discussed treatment. - PELVIC US WHI Will notify of results. Follow- up as needed. Maggi White APRN.LIU I spent a total of 20 minutes on the date of the service which included preparing to see the patient, [id number] patient care, completing clinical documentation, obtaining and/or reviewing separately obtained history, performing a medically appropriate examination, counseling and educating the patient/family/caregiver, and ordering medications, tests, or procedures. [facility] 08-02-2022 Instructions Maggi White APRN.LIU - 08/02/2022 11:34 AM EST Ibuprofen 600 mg every 6 hours OR Ibuprofen 800 mg every 8 hours OR Aleve 440-500 mg every 12 hours and heat. documented in this encounter [facility] 08-02-2022 History of Presen t illness Narrative Makeda Pete is a 21 year old female who presents for problem visit cramping with IUD HPI: Mirena IUD inserted 02/07/2020. It has resulted in light menstrual bleeding monthly but now she has increased cramping. Severe cramping with throbbing, sharp pains to right and/or left sided pelvic pain. Painful episodes last for a couple of hours and is nagging 4-5/10. Sometimes cramping is premenstrual and sometimes it is the first half of menses. Uses Diva menstrual cup and sometimes blood has formed a clot when she empties it. Menses every month and lasting either 3-5 days of light flow or 7 days of spotting. Ibuprofen is somewhat effective. 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 PAST MEDICAL HISTORY Diagnosis Date Torn ligament 11/2014 right ankle PAST SURGICAL HISTORY Procedure Laterality Date NONE FAMILY HISTORY Problem Relation Age of Onset Hypertension Father Hypertension Paternal Grandmother Thyroid Paternal Grandmother Social History Tobacco Use Smoking status: Never Passive exposure: Yes Smokeless tobacco: Never Tobacco comments: mother smokes inside Vaping Use Vaping Use: Never used Substance Use Topics Alcohol use: No Drug use: No Current Outpatient Medications Medication Sig PROAIR HFA 90 mcg/actuation inhaler INHALE 2 PUFFS NEEDED FOR SHORTNESS OF BREATH fluticasone (FLOVENT) 44 mcg/actuation inhaler Inhale as instructed. citalopram (CELEXA) 20 mg tablet 1 tab(s) famotidine (PEPCID) 20 mg tablet TAKE 1 TABLET BY MOUTH TWICE A DAY FOR 30 DAYS traZODone (DESYREL) 50 mg tablet Take 50 mg by mouth daily at bedtime. hydrOXYzine HCl (ATARAX) 10 mg tablet Take 10 mg by mouth three times daily as needed. ondansetron (ZOFRAN) 4 mg tablet Take by mouth every 8 hours as needed for nausea/vomiting. levonorgestrel (MIRENA) 20 mcg/24 hours (5 yrs) 52 mg IUD 1 Each by INTRAUTERINE route as directed. LOT # [id number] EXP 12/27/21 Sylvia Driscoll LPN No current facility-administered medications for this visit. Allergies As of Date: 08/02/2022 (No Known Allergies) Fully Assessed 06/27/2022 REVIEW OF SYSTEMS Abdomen: see HPI Allergies and current medication updated:Yes EXAM: BP 96/52 Wt 133 lb (60.3kg) LMP 12/23/2021 GENERAL: pleasant, female in no apparent distress CHEST: Normal inspiratory effort NEURO: alert and oriented x3,exam grossly non-focal ASSESSMENT/PLAN: 1. Pain due to intrauterine contraceptive device (IUD), initial encounter (HCC) - ICD9: 996.76, 338.18, ICD10: T83.84XA (primary diagnosis) - Strings have not been visible since insertion. Correct location on US 02/07/2020. Discussed contraceptive options with RBA if she decides to have IUD removed. - PELVIC US WHI 2. Dysmenorrhea - ICD9: 625.3, ICD10: N94.6 - see above. Discussed that intermittent alternating pelvic pain could be caused by ovarian cyst and discussed treatment. - PELVIC US WHI Will notify of results. Follow- up as needed. Maggi White APRN.SMELLER I spent a total of 20 minutes on the date of the service which included preparing to see the patient, [id number] patient care, completing clinical documentation, obtaining and/or reviewing separately obtained history, performing a medically appropriate examination, counseling and educating the patient/family/caregiver, and ordering medications, tests, or procedures. documented in this encounter [facility] 06-27-2022 Note HNO ID: [id number] Author: Becky Grewal APRN.LIU Service: ? Author Type: Nurse Practitioner Type: Progress Notes Filed: 06/27/2022 8:39 AM Note Text: CC: Patient presents with: Nasal Congestion: drainage, productive cough, sore throat and headache x over 1 week HPI: Makeda Pete is a 21 year old female who presents to the office with complaint of respiratory symptoms, head congestion, and sore throat for a week. Symptoms are staying the same. Associated symptoms includes nasal congestion and facial pain/pressure. Denies fever, nausea, vomiting , and diarrhea. Treatments tried include nothing so far. with no relief of symptoms. Sick contacts: unknown. History of asthma, frequent episodes of bronchitis, chronic bronchitis, bronchiectasis or COPD: No Smoker: No Seasonal/environmental allergies: No The ROS is otherwise negative. The patient's pmh, medications, allergies, and past visits are reviewed. PHYSICAL EXAM: BP 126/72 Pulse 92 Temp 37.2 ?C (98.9 ?F) Resp 18 Wt 59 kg (130 lb) LMP 12/23/2021 SpO2 97% General appearance: alert, cooperative, pleasant, in no acute distress Head: Normocephalic Eyes: EOM's intact, conjunctiva pink and moist, no icterus, sclera white, non-injected Ears: Right ear: External ear/canal- Normal, TM - clear with good landmarks. Left ear: External ear/canal- Normal, TM - clear with good landmarks Oropharynx:moist without lesions, No erythema, exudates or tonsillar hypertrophy. Heart: Negative. RRR without obvious murmur, gallop, or rubs. No ectopy. Lungs: clear to auscultation, without rales or wheeze, good air exchange PAST MEDICAL HISTORY Diagnosis Date Torn ligament 11/2014 right ankle PAST SURGICAL HISTORY Procedure Laterality Date NONE ALLERGIES Patient has no known allergies. MEDICATIONS fluticasone (FLOVENT) 44 mcg/actuation inhaler Inhale as instructed. citalopram (CELEXA) 20 mg tablet 1 tab(s) famotidine (PEPCID) 20 mg tablet TAKE 1 TABLET BY MOUTH TWICE A DAY FOR 30 DAYS traZODone (DESYREL) 50 mg tablet Take 50 mg by mouth daily at bedtime. hydrOXYzine HCl (ATARAX) 10 mg tablet Take 10 mg by mouth three times daily as needed. ondansetron (ZOFRAN) 4 mg tablet Take by mouth every 8 hours as needed for nausea/vomiting. levonorgestrel (MIRENA) 20 mcg/24 hours (5 yrs) 52 mg IUD 1 Each by INTRAUTERINE route as directed. LOT # [id number] EXP 12/27/21 Sylvia Driscoll LPN PROAIR HFA 90 mcg/actuation inhaler INHALE 2 PUFFS NEEDED FOR SHORTNESS OF BREATH FAMILY HISTORY Problem Relation Age of Onset Hypertension Father Hypertension Paternal Grandmother Thyroid Paternal Grandmother Social History Tobacco Use Smoking status: Never Passive exposure: Yes Smokeless tobacco: Never Tobacco comments: mother smokes inside Substance Use Topics Alcohol use: No Drug use: No ASSESSMENT/PLAN: 1. Rhinosinusitis - ICD9: 473.9, ICD10: J31.0, J32.9 (primary diagnosis) Negative strep 2. Sore throat - ICD9: 462, ICD10: J02.9 Prednisone daily for 5 days Augmentin twice a day for 5 days Prescription instructions reviewed with patient as applicable. Potential red flag symptoms discussed with the patient. Reviewed appropriate action plan to take if red flag symptoms occur. Patient agreeable to treatment plan. Becky Grewal APRN.[facility] 06-27-2022 History of Presen t illness Narrative CC: Patient presents with: Nasal Congestion: drainage, productive cough, sore throat and headache x over 1 week HPI: Makeda Pete is a 21 year old female who presents to the office with complaint of respiratory symptoms, head congestion, and sore throat for a week. Symptoms are staying the same. Associated symptoms includes nasal congestion and facial pain/pressure. Denies fever, nausea, vomiting , and diarrhea. Treatments tried include nothing so far. with no relief of symptoms. Sick contacts: unknown. History of asthma, frequent episodes of bronchitis, chronic bronchitis, bronchiectasis or COPD: No Smoker: No Seasonal/environmental allergies: No The ROS is otherwise negative. The patient's pmh, medications, allergies, and past visits are reviewed. PHYSICAL EXAM: BP 126/72 Pulse 92 Temp 37.2 C (98.9 F) Resp 18 Wt 59 kg (130 lb) LMP 12/23/2021 SpO2 97% General appearance: alert, cooperative, pleasant, in no acute distress Head: Normocephalic Eyes: EOM's intact, conjunctiva pink and moist, no icterus, sclera white, non-injected Ears: Right ear: External ear/canal- Normal, TM - clear with good landmarks. Left ear: External ear/canal- Normal, TM - clear with good landmarks Oropharynx:moist without lesions, No erythema, exudates or tonsillar hypertrophy. Heart: Negative. RRR without obvious murmur, gallop, or rubs. No ectopy. Lungs: clear to auscultation, without rales or wheeze, good air exchange PAST MEDICAL HISTORY Diagnosis Date Torn ligament 11/2014 right ankle PAST SURGICAL HISTORY Procedure Laterality Date NONE ALLERGIES Patient has no known allergies. MEDICATIONS fluticasone (FLOVENT) 44 mcg/actuation inhaler Inhale as instructed. citalopram (CELEXA) 20 mg tablet 1 tab(s) famotidine (PEPCID) 20 mg tablet TAKE 1 TABLET BY MOUTH TWICE A DAY FOR 30 DAYS traZODone (DESYREL) 50 mg tablet Take 50 mg by mouth daily at bedtime. hydrOXYzine HCl (ATARAX) 10 mg tablet Take 10 mg by mouth three times daily as needed. ondansetron (ZOFRAN) 4 mg tablet Take by mouth every 8 hours as needed for nausea/vomiting. levonorgestrel (MIRENA) 20 mcg/24 hours (5 yrs) 52 mg IUD 1 Each by INTRAUTERINE route as directed. LOT # [id number] EXP 12/27/21 Sylvia Driscoll LPN PROAIR HFA 90 mcg/actuation inhaler INHALE 2 PUFFS NEEDED FOR SHORTNESS OF BREATH FAMILY HISTORY Problem Relation Age of Onset Hypertension Father Hypertension Paternal Grandmother Thyroid Paternal Grandmother Social History Tobacco Use Smoking status: Never Passive exposure: Yes Smokeless tobacco: Never Tobacco comments: mother smokes inside Substance Use Topics Alcohol use: No Drug use: No ASSESSMENT/PLAN: 1. Rhinosinusitis - ICD9: 473.9, ICD10: J31.0, J32.9 (primary diagnosis) Negative strep 2. Sore throat - ICD9: 462, ICD10: J02.9 Prednisone daily for 5 days Augmentin twice a day for 5 days Prescription instructions reviewed with patient as applicable. Potential red flag symptoms discussed with the patient. Reviewed appropriate action plan to take if red flag symptoms occur. Patient agreeable to treatment plan. Becky Grewal APRN.LIU documented in this encounter [facility] 03-07-2022 History of Presen t illness Narrative Makeda Pete is a 21 year old female who presents for problem visit missed menses HPI: Missed last 2 menses . Has had monthly menses since insertion of Mirena IUD 12/26/2019. Is unable to feel strings but no strings visible with IUD check and pelvic US confirmed IUD in correct position 02/07/2020. No other complaints. OB History No obstetric history on file. 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 PAST MEDICAL HISTORY Diagnosis Date Torn ligament 11/2014 right ankle PAST SURGICAL HISTORY Procedure Laterality Date NONE FAMILY HISTORY Problem Relation Age of Onset Hypertension Father Hypertension Paternal Grandmother Thyroid Paternal Grandmother Social History Tobacco Use Smoking status: Never Passive exposure: Yes Smokeless tobacco: Never Tobacco comments: mother smokes inside Substance Use Topics Alcohol use: No Drug use: No Current Outpatient Medications Medication Sig citalopram (CELEXA) 20 mg tablet 1 tab(s) famotidine (PEPCID) 20 mg tablet TAKE 1 TABLET BY MOUTH TWICE A DAY FOR 30 DAYS traZODone (DESYREL) 50 mg tablet Take 50 mg by mouth daily at bedtime. hydrOXYzine HCl (ATARAX) 10 mg tablet Take 10 mg by mouth three times daily as needed. ondansetron (ZOFRAN) 4 mg tablet Take by mouth every 8 hours as needed for nausea/vomiting. levonorgestrel (MIRENA) 20 mcg/24 hours (5 yrs) 52 mg IUD 1 Each by INTRAUTERINE route as directed. LOT # [id number] EXP 12/27/21 Sylvia Driscoll CANDACE No current facility-administered medications for this visit. Allergies As of Date: 03/07/2022 (No Known Allergies) Fully Assessed 03/07/2022 REVIEW OF SYSTEMS Allergies and current medication updated:Yes EXAM: Wt 136 lb 3.2 oz (61.8kg) LMP 12/23/2021 GENERAL: pleasant, female in no apparent distress CHEST: Normal inspiratory effort PELVIC: external genitalia normal, normal Bartholin's glands, urethra, [place]'s glands, no vulvar lesions, no cervical lesions, good vaginal support, physiologic discharge present, normal appearing perineal body and perianal region, IUD strings not visible as expected NEURO: alert and oriented x3,exam grossly non-focal ASSESSMENT/PLAN: 1. Missed menses - ICD9: 626.4, ICD10: N92.6 (primary diagnosis) - HCG QUAL UR B/O - negative 2. IUD check up - ICD9: V25.42, ICD10: Z30.431 IUD strings not visible, as expected. IUD placement confirmed 01/2020. Follow-up as needed and at annual. Maggi White APRN.CNP I spent a total of 20 minutes on the date of the service which included preparing to see the patient, [id number] patient care, completing clinical documentation, obtaining and/or reviewing separately obtained history, performing a medically appropriate examination, counseling and educating the patient/family/caregiver, and ordering medications, tests, or procedures Maggi Wihte APRN.LIU documented in this encounter [facility] 10-04-2021 History of Presen t illness Narrative 21-year-old female who yesterday attempted to capture a stray dog in the road and got bit on her hand. There was some bleeding. She did clean the wound as well. Today she notes pain in the right hand area at a 3 out of 10 level. It is somewhat worse with movement. She is right-handed. Tetanus shot was updated today. Review of systems is otherwise negative for constitutional, ear nose and throat, neck, heart, lungs, and abdomen. [facility] Work Phone: 05-11-2021 Hospital Discharg e instructions Patient Education 05/11/2021 09:30:05 HEAD INJURY, No Wake-Up (Adult) Head Injury, No Wake-Up (Adult) You have had a head injury. It does not appear serious at this time. Symptoms of a more serious problem (concussion, bruising, or bleeding in the brain) may appear later. Therefore, watch for the WARNING SIGNS listed below. Home Care: Your healthcare provider will tell you whether it s okay to drive. If so, you can drive yourself home. For the next day or so, be careful when driving or using heavy machinery until you are sure you have no delayed symptoms. During the next 24 hours someone must stay with you to check for the signs below. It is not necessary to stay awake or be awakened during the night. If you have swelling of the face or scalp, apply an ice pack (ice cubes in a plastic bag, wrapped in a towel) for 20 minutes. Do this every 1-2 hours until the swelling starts to go down. Do not use aspirin or ibuprofen (Motrin, Advil) after a head injury. You may use acetaminophen (Tylenol) to control pain, unless another pain medicine was prescribed. [NOTE: If you have chronic liver or kidney disease or ever had a stomach ulcer or GI bleeding, talk with your doctor before using these medicines.] For the next 24 hours: Do not take alcohol, sedatives or medicines that make you sleepy. Avoid strenuous activities. No lifting or straining. If you have had any symptoms of a concussion today (nausea, vomiting, dizziness, confusion, headache, memory loss or if you were knocked out), do not return to sports or any activity that could result in another head injury until all symptoms are gone and you have been cleared by your doctor. A second head injury before fully recovering from the first one can lead to serious brain injury. Follow Up with your doctor if symptoms are not improving after 24 hours, or as directed. [NOTE: A radiologist will review any X-rays or CT scans that were taken. We will notify you of any new findings that may affect your care.] Get Prompt Medical Attention if any of the following WARNING SIGNS occur: Repeated vomiting Severe or worsening headache or dizziness Unusual drowsiness, or unable to awaken as usual Confusion or change in behavior or speech, memory loss, blurred vision Convulsion (seizure) Increasing scalp or face swelling Redness, warmth or pus from the swollen area Fluid drainage or bleeding from the nose or ears [id number] [employer]. [address] [place] [address]. All rights reserved. This information is not intended as a substitute for professional medical care. Always follow your healthcare professional's instructions. Follow Up Care 05/11/2021 09:06:02 With:MD KAYCEE IGLESIAS Address: [facility] [address] [phone] When:2-4 days [facility] Evaluation + Plan note No data available for this section [facility] Evaluation + Plan note Future Appointments Appointment Date:07/11/2022 09:00:00 AM Scheduled Provider:FERNANDA FOSTER Location:[facility] Appointment Type:[facility] documented in this encounter [facility] Work Phone: Evaluation note* Diagnosis Missed menses- Primary Absence of menstruation IUD check up Surveillance of previously prescribed intrauterine contraceptive device [facility] Diagnosis Rhinosinusitis- Primary Unspecified sinusitis (chronic) Sore throat Acute pharyngitis [facility] Diagnosis Pain due to intrauterine contraceptive device (IUD), initial encounter ([facility])- Primary Dysmenorrhea [facility] Diagnosis Pain due to intrauterine contraceptive device (IUD), initial encounter ([facility])- Primary Dysmenorrhea documented in this encounter [facility] note* Diagnosis Pain due to intrauterine contraceptive device (IUD), initial encounter ([facility])- Primary documented in this encounter [facility] note* Diagnosis Encounter for IUD removal- Primary Encounter for removal of intrauterine contraceptive device Encounter for initial management of nuvaring General counseling for initiation of other contraceptive measures documented in this encounter [facility] note* Diagnosis Encounter for gynecological examination (general) (routine) without abnormal findings- Primary Screening for cervical cancer Screening for malignant neoplasm of the cervix Encounter for screening for human papillomavirus (HPV) Special screening examination for human papillomavirus (HPV) Screen for STD (sexually transmitted disease) Screening examination for venereal disease documented in this encounter [facility] note* Diagnosis Spotting in - Primary Spotting complicating , unspecified as to episode of care or not applicable documented in this encounter [facility] note* Diagnosis Spontaneous miscarriage- Primary Unspecified spontaneous without mention of complication documented in this encounter [facility] note* Diagnosis Pain due to intrauterine contraceptive device (IUD), initial encounter (HCC) Dysmenorrhea documented in this encounter [facility] Discharge instructions No data available for this section [facility] Progress note No data available for this section [facility] Reason for referral (narrative)* Diagnostic Procedure Only (Routine) - Authorized Specialty Diagnoses / Procedures Referred By Kate reeves Referred To Contact FOR[facility] NAMED [facility] Diagnoses Dysmenorrhea Pain due to intrauterine contraceptive device (IUD), initial encounter (HCC) Procedures PELVIC US WHI US PELVIC NONOBSTETRIC REAL-TIME IMAGE COMPLETE Maggi White APRN.CNP [address] [place] [address] [facility] [address] [place] [address] Referral ID Status Reason Start Date Expiration Date Visits Requested Visits Authorized [id number] Authorized Auto-Generat ed Referral 08/02/2022 08/02/2023 1 [facility] Diagnostic Procedure Only (Routine) - Authorized Specialty Diagnoses / Procedures Referred By Kate reeves Referred To Contact [facility] Diagnoses Pain due to intrauterine contraceptive device (IUD), initial encounter (HCC) Dysmenorrhea Procedures US FEMALE PELVIS TRANSVAG US TRANSVAGINAL Maggi White APRN.CNP [address] [place] [address] [facility] Referral ID Status Reason Start Date Expiration Date Visits Requested Visits Authorized [id number] Authorized Auto-Generat ed Referral 08/12/2022 09/11/2023 1 1 [facility] for referral (narrative)* Outpatient Procedure (Routine) - Authorized Specialty Diagnoses / Procedures Referred By Kate reeves Referred To Contact [facility] NAMED [facility] Diagnoses Pain due to intrauterine contraceptive device (IUD), initial encounter (HCC) Procedures REMOVE INTRAUTERINE DEVICE REMOVE INTRAUTERINE DEVICE Maggi White APRN.CNP [address] [place] [address] [facility] [address] [place] [address] Referral ID Status Reason Start Date Expiration Date Visits Requested Visits Authorized [id number] Authorized Auto-Generat ed Referral 08/25/2022 08/25/2023 1 1 [facility] for referral (narrative)* Diagnostic Procedure Only (Routine) - Closed Specialty Diagnoses / Procedures Referred By Kate reeves Referred To Contact [facility] IMAG[facility] Diagnoses Pain due to intrauterine contraceptive device (IUD), initial encounter (HCC) Dysmenorrhea Procedures US FEMALE PELVIS TRANSVAG US TRANSVAGINAL Maggi White APRN.CNP [address] [place] [address] [place] [address] Referral ID Status Reason Start Date Expiration Date V isits Requested Visits Authorized [id number] Closed Auto-Generate d Referral 08/12/2022 09/11/2023 1 1 [facility] Summary Purpose Family History No Family History Records FoundNo Family History Records FoundNo Family History Records FoundNo Family History Records FoundNo Family History Records FoundNo Family History Records Found Advance Directives No Advanced Directives Records FoundNo Advanced Directives Records FoundNo Advanced Directives Records FoundNo Advanced Directives Records FoundNo Advanced Directives Records FoundNo Advanced Directives Records Found Additional Source Comments INFORMATION SOURCE (unrecogn ized section and content) DATE CREATED AUTHOR AUTHOR'S ORGANIZ ATION 10/04/2021 [facility] DATE CREATED AUTHOR AUTHOR'S ORGANIZ ATION 10/13/2021 [facility] ([place]) DATE CREATED AUTHOR AUTHOR'S ORGANIZ ATION 03/04/2022 [facility] DATE CREATED AUTHOR AUTHOR'S ORGANIZ ATION 07/20/2022 [facility] DATE CREATED AUTHOR AUTHOR'S ORGANIZ ATION 06/16/2023 [facility] Care Teams (unrecognized sec tion and content) 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 Start Date End Date Kaycee Iglesias MD [address] [place], [place] [id number] PCP - General Pediatrics 04/04/14 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 Start Date End Date Fernanda Foster, INSURANCE CLAIMS EXAMINER.LIU PCP - General 06/27/22 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 Start Date End Date Fernanda Foster, INSURANCE CLAIMS EXAMINER.SMELLER PCP - General 06/27/22 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 Start Date End Date Fernanda Foster, INSURANCE CLAIMS EXAMINER.SMELLER PCP - General 06/27/22 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 Start Date End Date Fernanda Foster, INSURANCE CLAIMS EXAMINER.SMELLER PCP - General 06/27/22 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 Start Date End Date Fernanda Foster, INSURANCE CLAIMS EXAMINER.SMELLER PCP - General 06/27/22 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 Start Date End Date Fernanda Foster, INSURANCE CLAIMS EXAMINER.SMELLER PCP - General 06/27/22 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 Start Date End Date Fernanda Foster, INSURANCE CLAIMS EXAMINER.SMELLER PCP - General 06/27/22 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 Start Date End Date Fernanda Foster, INSURANCE CLAIMS EXAMINER.SMELLER PCP - General 06/27/22 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 Start Date End Date Ruth AnnFernanda tsang APRN.[facility] - General 06/27/22 Source Comments (unrecognize d section and content) In the event this informatio n is protected by the Federal Confidentiality of Alcohol and Drug Abuse Patient Records regulations: The Federal rules restrict any use of the information to criminally investigate or prosecute any alcohol or drug abuse patient.[facility] the event this information is protected by the Federal Confidentiality of Alcohol and Drug Abuse Patient Records regulations: The Federal rules restrict any use of the information to criminally investigate or prosecute any alcohol or drug abuse patient.[facility] the event this information is protected by the Federal Confidentiality of Alcohol and Drug Abuse Patient Records regulations: The Federal rules restrict any use of the information to criminally investigate or prosecute any alcohol or drug abuse patient.[facility] the event this information is protected by the Federal Confidentiality of Alcohol and Drug Abuse Patient Records regulations: The Federal rules restrict any use of the information to criminally investigate or prosecute any alcohol or drug abuse patient.[facility] the event this information is protected by the Federal Confidentiality of Alcohol and Drug Abuse Patient Records regulations: The Federal rules restrict any use of the information to criminally investigate or prosecute any alcohol or drug abuse patient.[facility] the event this information is protected by the Federal Confidentiality of Alcohol and Drug Abuse Patient Records regulations: The Federal rules restrict any use of the information to criminally investigate or prosecute any alcohol or drug abuse patient.[facility] the event this information is protected by the Federal Confidentiality of Alcohol and Drug Abuse Patient Records regulations: The Federal rules restrict any use of the information to criminally investigate or prosecute any alcohol or drug abuse patient.[facility] the event this information is protected by the Federal Confidentiality of Alcohol and Drug Abuse Patient Records regulations: The Federal rules restrict any use of the information to criminally investigate or prosecute any alcohol or drug abuse patient.[facility] the event this information is protected by the Federal Confidentiality of Alcohol and Drug Abuse Patient Records regulations: The Federal rules restrict any use of the information to criminally investigate or prosecute any alcohol or drug abuse patient.[facility] the event this information is protected by the Federal Confidentiality of Alcohol and Drug Abuse Patient Records regulations: The Federal rules restrict any use of the information to criminally investigate or prosecute any alcohol or drug abuse patient.[facility] the event this information is protected by the Federal Confidentiality of Alcohol and Drug Abuse Patient Records regulations: The Federal rules restrict any use of the information to criminally investigate or prosecute any alcohol or drug abuse patient.[facility] the event this information is protected by the Federal Confidentiality of Alcohol and Drug Abuse Patient Records regulations: The Federal rules restrict any use of the information to criminally investigate or prosecute any alcohol or drug abuse patient.[facility] the event this information is protected by the Federal Confidentiality of Alcohol and Drug Abuse Patient Records regulations: The Federal rules restrict any use of the information to criminally investigate or prosecute any alcohol or drug abuse patient.[facility] Reason for Visit (unrecogniz ed section and content) Reason Comments Nasal Congestion drainage, productive cough, sore throat and headache x over 1 week Reason Comments Discussion Painful cycle withou t the normal flow with IUD Reason Comments Orders Appointment Reason Comments IUD Removal Specialty Diagnoses / Procedures Referred By Contac t Referred To Contact [facility] NAMED [facility] Diagnoses Pain due to intrauterine contraceptive device (IUD), initial encounter ([facility]) Procedures REMOVE INTRAUTERINE DEVICE REMOVE INTRAUTERINE DEVICE Maggi White APRN.SMELLER [address] [place] [address] [facility] [address] [place] [address] Referral ID Status Reason Start Date Expiration Date V isits Requested Visits Authorized [id number] Closed Auto-Generate d Referral 08/25/2022 08/25/2023 1 1 Reason Comments Well Woman Specialty Diagnoses / Procedures Referred By Contac t Referred To Contact FOR[facility] NAMED [facility] Diagnoses Encounter for annual routine gynecological examination annual exam Procedures WELLNESS EXAMS EST 18-39 YRS est [facility] patient Self Maggi White APRN.SMELLER [address] [place] [address] Referral ID Status Reason Start Date Expiration Date V isits Requested Visits Authorized [id number] Closed Financial Clearance Required - Self Pay Patient Cleared - INN Insurance Found 10/10/2022 07/30/2023 1 1 Reason Comments Early OB Spotting Reason Comments Patient Update Follow Up Reason Comments Miscarriage Results Reason Comments Follow Up From [facility] Reason Comments Radiology US Specialty Diagnoses / Procedures Referred By Contac t Referred To Contact [facility] IMAG[facility] Diagnoses Pain due to intrauterine contraceptive device (IUD), initial encounter (HCC) Dysmenorrhea Procedures US FEMALE PELVIS TRANSVAG US TRANSVAGINAL Maggi White APRN.SMELLER [address] [place] [address] [place] [address] Referral ID Status Reason Start Date Expiration Date V isits Requested Visits Authorized [id number] Closed Auto-Generate d Referral 08/12/2022 09/11/2023 1 1 Care Team (unrecognized sect ion and content) Care Team Personnel Name: ANNA DOBBS APRN-SMELLER Position: P4 Advanced Practice Nurse Member Role: Primary Care Physician Address: Address: [address] [place] [id number]- Care Team Related Persons Name: MARIA ISABEL GILLILAND FOR RECORDS PERTAINING TO PATIENTS WHO ARE OR HAVE BEEN ENROLLED IN A CHEMICAL DEPENDENCY/SUBSTANCEABUSE PROGRAM, SOME INFORMATION MAY BE OMITTED. This clinical summary was aggregated from multiple sources. Caution should be exercised in using it in the provision of clinical care. This summary normalizes information from multiple sources, and as a consequence, information in this document may materially change the coding, format and clinical context of patient data. In addition, data may be omitted in some cases. CLINICAL DECISIONS SHOULD BE BASED ON THE PRIMARY CLINICAL RECORDS. [employer] provides no warranty or guarantee of the accuracy or completeness of information in this document.
[2023-08-17 02:07] LABS: Chlamydia By Nucleic Acid AMP Negative (Negative); Gonococcus By Nucleic Acid AMP Negative (Negative)
== END | disposition home or self-care (01) ==
PROVIDERS: Visit Provider Obstetrics & Gynecology
DX: Z34.90 Encounter for supervision of normal pregnancy, unspecified, unspecified trimester (principal); Z3A.00 Weeks of gestation of pregnancy not specified
CPT/HCPCS: 87086; 87491; 87591

== ENCOUNTER → 2023-08-21 | Outpatient (CLI) | payer OTHER, MEDICAID, SELFPAY ==
--- OUTSIDE RECORDS SUMMARY | 2023-08-21 09:27 | XMS RPT_ITS | CCD ---
Author Name Unknown Address [address] [place] [address] Organization [facility] Care Team Providers Care Consumer Loan Specialist Name Role Phone Pending Provider Unavailable Unavailable Unavailable Unavailable PHYSICIAN, NONE Primary Care Physician Unavailab le Unavailable Primary Care Provider UnavailKAYCEE Grmies Primary Care Physician Gisele Diego MD Primary Care Provider Kaycee Iglesias MD Primary Care Provider RINKU MANUEL, ANNA Primary Care Physician Fernanda [...] Drug Class(es) Dates Sig (Normalized) Sig (Original) [id number] 200 actuat albuterol 0.09 mg/actuat metered dose [...] 69.67 kg Alicja Velez APRN.CNM Work Phone: [facility] 05-30-2023 14:35-0400 Diastolic blood pressure 64 mm[Hg] Alicja Velez APRN.CNM Work Phone: [facility] 05-30-2023 14:35-0400 Systolic blood pressure 100 mm[Hg] Alicja Velez APRN.CNM Work Phone: [facility] 10-11-2022 08:56-0400 Body height 160 cm Maggi White APRN.CNP Work Phone: [facility] 10-11-2022 08:56-0400 Body weight 58.97 kg Maggi White APRN.CNP Work Phone: [facility] 10-11-2022 08:56-0400 Diastolic blood pressure 70 mm[Hg] Maggi White APRN.BUSINESS EXCELLENCE LEADER Work Phone: [facility] 10-11-2022 08:56-0400 Systolic blood pressure 114 mm[Hg] Maggi White REFRIGERATOR REPAIR TECHNICIAN.BUSINESS EXCELLENCE LEADER Work Phone: [facility] 08-29-2022 13:54-0500 Body weight 59.88 kg Maggi Wihte APRN.BUSINESS EXCELLENCE LEADER Work Phone: [facility] 08-29-2022 13:54-0500 Diastolic blood pressure 58 mm[Hg] Maggi White APRN.BUSINESS EXCELLENCE LEADER Work Phone: [facility] 08-29-2022 13:54-0500 Systolic blood pressure 100 mm[Hg] Maggi White REFRIGERATOR REPAIR TECHNICIAN.BUSINESS EXCELLENCE LEADER Work Phone: [facility] 08-02-2022 11:14-0500 Body weight 60.33 kg Maggi White APRN.BUSINESS EXCELLENCE LEADER Work Phone: [facility] 08-02-2022 11:14-0500 Diastolic blood pressure 52 mm[Hg] Maggi White APRN.BUSINESS EXCELLENCE LEADER Work Phone: [facility] 08-02-2022 11:14-0500 Systolic blood pressure 96 mm[Hg] Maggi White APRN.BUSINESS EXCELLENCE LEADER Work Phone: [facility] 06-27-2022 08:17-0500 Body temperature 98.91 [degF] Becky Grewal APRN.BUSINESS EXCELLENCE LEADER Work Phone: [facility] 06-27-2022 08:17-0500 Body weight 58.97 kg Becky Grewal APRN.BUSINESS EXCELLENCE LEADER Work Phone: [facility] 06-27-2022 08:17-0500 Diastolic blood pressure 72 mm[Hg] Becky Grewal APRN.BUSINESS EXCELLENCE LEADER Work Phone: [facility] 06-27-2022 08:17-0500 Heart rate 92 /min Becky Grewal APRN.BUSINESS EXCELLENCE LEADER Work Phone: [facility] 06-27-2022 08:17-0500 Respiratory rate 18 /min Becky Grewal APRN.BUSINESS EXCELLENCE LEADER Work Phone: [facility] 06-27-2022 08:17-0500 SaO2% (BldA) [Mass fraction] 97 % Becky Grewal APRN.BUSINESS EXCELLENCE LEADER Work Phone: [facility] 06-27-2022 08:17-0500 Systolic blood pressure 126 mm[Hg] Becky Grewal APRN.BUSINESS EXCELLENCE LEADER Work Phone: [facility] 03-07-2022 06:55-0400 Body weight 61.78 kg Maggi White APRN.BUSINESS EXCELLENCE LEADER Work Phone: [facility] 03-07-2022 06:55-0400 Diastolic blood pressure 60 mm[Hg] Maggi White APRN.BUSINESS EXCELLENCE LEADER Work Phone: [facility] 03-07-2022 06:55-0400 Systolic blood pressure 98 mm[Hg] Maggi White APRN.BUSINESS EXCELLENCE LEADER Work Phone: [facility] 10-04-2021 09:43-0500 Body height 154.94 cm Clarke [...] Provider Facility Start: 06-14-2023 End: 06-15-2023 ambulatory [facility] Facility:[facility] Start: 06-08-2023 End: 06-09-2023 ambulatory [facility] Facility:[facility] Start: 06-05-2023 End: 06-06-2023 ambulatory [facility] Facility:[facility] Start: 06-01-2023 End: 06-02-2023 ambulatory [facility] Facility:[facility] Start: 05-30-2023 End: 05-30-2023 ambulatory [facility] Facility:[facility] Start: 05-30-2023 End: 05-30-2023 Patient encounter procedure Alicja Velez ENEDELIA.CNM Work Phone: OB/Gynecology Procedures Date Procedure Procedure Detail Performing Clinician Start: 08-22-2022 Us transvaginal Maggi layton APRN.CNP Work Phone: Start: 06-27-2022 STREP A MOLECULAR (POC) [facility] Provider Start: 03-07-2022 Urine test visual color cmprsn meths Maggi White APRN.BUSINESS EXCELLENCE LEADER Work Phone: Start: 02-28-2022 Echo tthrc r-t 2d w/wom-mode compl spec&colr d Gisele Diego MD Work Phone: None (qualifier value) EMMA ARANGO MD Plan of Treatment Date Care Activity Detail Author Start: 10-05-2031 DTaP/Tdap/Td vaccine (8 - Td or Tdap) DTaP/Tdap/Td vaccine (8 - Td or Tdap) [facility] Start: 10-05-2031 Urine microalbumin profile DTaP,Tdap,Td Vaccine (8 - Td or Tdap) [facility] Start: 10-11-2025 PAP TESTING PAP TESTING [facility] Start: 10-12-2023 CHLAMYDIA SCREENING (18-24) CHLAMYDIA SCREENING (18-24) [facility] Start: 10-12-2023 GC (GONORRHEA) SCREENING (18-24) GC (GONORRHEA) SCREENING (18-24) [facility] Start: 08-22-2023 Urine microalbumin profile [facility] Start: 03-31-2023 Influenza vaccination Influenza Vaccine (#1) [facility] Start: 2022 PAP TESTING PAP TESTING [facility] Start: 08-02-2022 End: 08-02-2023 PELVIC US WHI PELVIC US WHI Anc Imaging Routine Dysmenorrhea Pain due to intrauterine contraceptive device (IUD), initial encounter (HCC) Expected: 08/02/2022, Expires: 08/02/2023 [facility] Work Phone: Immunizations Immunization Date Immunization Notes Care Provider Fa cility 10-04-2021 tetanus toxoid, redu beryl diphtheria toxoid, and acellular pertussis vaccine, adsorbed; Translations: [Tdap] Clarke Garcia MD Work Phone: [facility] Work Phone: Payers Date Payer Category Payer Private Health Insurance AEKAMLESH LIANG POS [id number] 2023-Present [phone] [address] [place] [address] POS [id number] 2023 Private Health Insurance [id number] 2022 Medicaid [id number] 2021 Unknown [id number] 2020 Medicaid [id number] 2020 Unknown [id number] 2001 Unknown [id number] 2001 Unknown [id number] 2001 Unknown [id number] 27 Unknown [facility] Social History Date Type Detail Facility Never smoker [facility] Sex Assigned At Female [facility] Tobacco smoking status WYIS Tobacco smoking consumption unknown [facility] Start: 2001 Sex Assigned At Not on file [facility] Work Phone: Start: 05-11-2021 End: 03-07-2022 Never smoked tobacco (finding) [facility] [place] History of tobacco use Passive smoker [facility] Work Phone: Start: 03-07-2022 Tobacco use and exposure Smokeless tobacco non-user [facility] Work Phone: Start: 03-07-2022 End: 08-02-2022 Alcohol intake Current non-drinker of alcohol (finding) [facility] Start: 03-07-2022 Tobacco Comment mother smokes inside [facility] Start: 02-25-2022 End: 06-27-2022 Exposure to SARS-CoV-2 (event) Not sure [facility] Work Phone: Start: 08-22-2022 End: 10-11-2022 History of Social function [facility] Start: 08-22-2022 End: 10-11-2022 Tobacco use panel [facility] National Score (1-100), lower number is lower risk 56 [facility] Clinical Notes 05-11-2021 to 05-30-2023 Alicja Velez APRN.CNM - 05/30/2023 2:31 PM EDTTelephone Encounter - Arely Akins RN - 05/30/2023 10:24 AM EDTTelephone Encounter - Arely Akins RN - 05/30/2023 10:24 AM EDT Note Date & Type Note Facility 05-30-2023 Note HNO ID: [id number] Author: Alicja Velez APRN.CNM Service: ? Author Type: Cpa Tax Type: Progress Notes Filed: 05/30/2023 3:13 PM Note Text: Makeda Pete is a 22 year old female who presents with boyfriend for follow up visit LMP was 04/05/23. Patient had positive test and was seen at [facility]. US completed on 05/22/23 that stated 5w1d [...] L0 SAB0 IAB0 Ectopic0 Multiple0 Live Births0 Line Fisher History LMP: 09/21/2022, Recent Age at Menarche: 13 Age at First : Age at Menopause: Line Fisher History Comments: Sexual Activity: Yes; Male; Nuvaring [...] vitamin - RTO as needed Alicja Velez APRN.[facility] 05-30-2023 History of Presen t illness Narrative Makeda Pete is a 22 year old female who presents with boyfriend for follow up visit LMP was 04/05/23. Patient had positive test and was seen at [facility]. US completed on 05/22/23 that stated 5w1d [...] L0 SAB0 IAB0 Ectopic0 Multiple0 Live Births0 Line [place] History LMP: 09/21/2022, Recent Age at Menarche: 13 Age at First : Age at Menopause: Line Fisher History Comments: Sexual Activity: Yes; Male; Nuvaring [...] Alicja Velez APRN.CNM documented in this encounter [facility] 05-30-2023 Miscellaneous Notes Formattin g of this [...] Alicja Velez APRN.CNM documented in this encounter [facility] 05-29-2023 Miscellaneous Notes Formattin g of this note might be different from the original. Patient did not go to lab on Monday. Called patient and she will go today. Arely Akins RN Patient called and appointment scheduled for Monday. Patient will get repeat HCG drawn on Monday. Keep phone note open for HCG results. Shannon Lora RN Patient seen at [facility] tonight in ED for vaginal spotting. Patient [...] Alicja Velez APRN.CNM documented in this encounter [facility] 05-25-2023 Miscellaneous Notes Formattin g of this note might be different from the original. Pt notified via [employer]. Will await further response from pt. Sylvia Driscoll LPN Please just have patient monitor at home. Review bleeding precautions. Keep scheduled appointment. Alicja Velez APRN.CNM LMP 04/05/23 7w1d Patient calling c/o spotting x3 days. Notices mostly only with wiping. She did have u/s done on 05/22 at [facility] and bleeding started after that. She was told she was measuring 5w1d that day though. No cramping, pain or other concerns. NOB scheduled with 06/05. Please advise. Arely Akins RN documented in this encounter [facility] 10-11-2022 Note HNO ID: [id number] Author: Maggi White APRN.LIU Service: ? Author Type: Nurse Practitioner Type: Progress Notes Filed: 10/11/2022 9:23 AM Note Text: Hygiene Coordinator offered:Patient maxine De Jesus Is a 22 [...] L0 SAB0 IAB0 Ectopic0 Multiple0 Live Births0 Line [place] History LMP: 08/27/2022, IUD Age at Menarche: Age at First : Age at Menopause: Line Fisher History Comments: Sexual Activity: Yes; No partner [...] external genitalia normal, normal Bartholin's glands, urethra, Goodlow's glands, no vulvar lesions, no cervical lesions, [...] or sooner as needed Maggi White APRN.CNP [facility] 10-11-2022 Instructions Maggi White APRN.CNP - 10/11/2022 9:07 AM EDT Check on BRCA testing of mom documented in this encounter [facility] 10-11-2022 History of Presen t illness Narrative Hygiene Coordinator offered:Patient maxine De Jesus Is a 22 [...] L0 SAB0 IAB0 Ectopic0 Multiple0 Live Births0 Line [place] History LMP: 08/27/2022, IUD Age at Menarche: Age at First : Age at Menopause: Line Fisher History Comments: Sexual Activity: Yes; No partner [...] external genitalia normal, normal Bartholin's glands, urethra, Goodlow's glands, no vulvar lesions, no cervical lesions, [...] Maggi White APRN.LIU documented in this encounter [facility] 08-29-2022 Note HNO ID: [id number] Author: Maggi White APRN.CNP Service: ? Author Type: Nurse Practitioner Type: Progress Notes Filed: 08/29/2022 2:38 PM Note Text: Hygiene Coordinator offered: Patient declines. Makeda presents for removal [...] well. Contraception plans: Numineing Maggi White APRN.CNP [facility] 08-29-2022 History of Presen t illness Narrative Hygiene Coordinator offered: Patient declines. Makeda presents for removal [...] Aida White APRN.CNP documented in this encounter [facility] 08-25-2022 Miscellaneous Notes Formattin g of this [...] Sylvia Driscoll LPN documented in this encounter [facility] 08-22-2022 Note HNO ID: [id number] Author: Teresa Nash RDMS Service: ? Author Type: Research Librarian Type: Progress Notes Filed: 08/22/2022 9:53 AM [...] Nash RDMS August 22, 2022 9:53 AM [facility] 08-22-2022 History of Presen t illness Narrative [...] 2022 9:53 AM documented in this encounter [facility] 08-12-2022 Miscellaneous Notes Formattin g of this note might be different from the original. Patient returned call. Appointment rescheduled to radiology department. Lily Piper RN Please file radiology pelvic u/s order. Left message for patient to call office so u/s on 08/15 can be moved to radiology instead to make room for more urgent OB patient. Arely Akins RN documented in this encounter [facility] 08-02-2022 Note HNO ID: [id number] Author: Maggi White APRN.BUSINESS EXCELLENCE LEADER Service: ? Author Type: Nurse Practitioner Type: [...] L0 SAB0 IAB0 Ectopic0 Multiple0 Live Births0 Line Fisher History LMP: 12/23/2021, IUD Age at Menarche: Age at First : Age at Menopause: Line Fisher History Comments: Sexual Activity: Yes; No partner [...] by INTRAUTERINE route as directed. LOT # [id number] EXP 12/27/21 Sylvia Americo RN EMERGENCY No current facility-administered medications for this visit. [...] which included preparing to see the patient, [id number] patient care, completing clinical documentation, obtaining and/or reviewing separately obtained history, performing a medically appropriate examination, counseling and educating the patient/family/caregiver, and ordering medications, tests, or procedures. [facility] 08-02-2022 Instructions Maggi White APRN.LIU - 08/02/2022 11:34 AM EST Ibuprofen 600 mg every 6 hours OR Ibuprofen 800 mg every 8 hours OR Aleve 440-500 mg every 12 hours and heat. documented in this encounter [facility] 08-02-2022 History of Presen t illness Narrative [...] L0 SAB0 IAB0 Ectopic0 Multiple0 Live Births0 Line Fisher History LMP: 12/23/2021, IUD Age at Menarche: Age at First : Age at Menopause: Line Fisher History Comments: Sexual Activity: Yes; No partner [...] by INTRAUTERINE route as directed. LOT # [id number] EXP 12/27/21 Sylvia Driscoll LPN No current [...] results. Follow- up as needed. Maggi White APRN.BUSINESS EXCELLENCE LEADER I spent a total of 20 minutes on the date of the service which included preparing to see the patient, [id number] patient care, completing clinical documentation, obtaining and/or reviewing separately obtained history, performing a medically appropriate examination, counseling and educating the patient/family/caregiver, and ordering medications, tests, or procedures. documented in this encounter [facility] 06-27-2022 Note HNO ID: [id number] Author: Becky Grewal APRN.LIU Service: ? Author [...] by INTRAUTERINE route as directed. LOT # [id number] EXP 12/27/21 Sylvia Driscoll LPN PROAIR HFA [...] Patient agreeable to treatment plan. Becky Grewal APRN.[facility] 06-27-2022 History of Presen t illness [...] by INTRAUTERINE route as directed. LOT # [id number] EXP 12/27/21 Sylvia Driscoll LPN PROAIR HFA [...] Becky Grewal APRN.LIU documented in this encounter [facility] 03-07-2022 History of Presen t illness Narrative [...] OB History No obstetric history on file. Line [place] History LMP: 12/23/2021, IUD Age at Menarche: Age at First : Age at Menopause: Line Fisher History Comments: Sexual Activity: Yes; No partner [...] by INTRAUTERINE route as directed. LOT # [id number] EXP 12/27/21 Sylvia Driscoll CANDACE No current facility-administered medications for this visit. Allergies As of Date: 03/07/2022 (No Known Allergies) Fully Assessed 03/07/2022 REVIEW OF SYSTEMS Allergies and current medication updated:Yes EXAM: Wt 136 lb 3.2 oz (61.8kg) LMP 12/23/2021 GENERAL: pleasant, female in no apparent distress CHEST: Normal inspiratory effort PELVIC: external genitalia normal, normal Bartholin's glands, urethra, Goodlow's glands, no vulvar lesions, no cervical lesions, [...] which included preparing to see the patient, [id number] patient care, completing clinical documentation, obtaining and/or reviewing separately obtained history, performing a medically appropriate examination, counseling and educating the patient/family/caregiver, and ordering medications, tests, or procedures Maggi White APRN.LIU documented in this encounter [facility] 10-04-2021 History of Presen t illness Narrative [...] throat, neck, heart, lungs, and abdomen. [facility] Work Phone: 05-11-2021 Hospital Discharg e instructions [...] or bleeding from the nose or ears [id number] [employer]. [address] [place] [address]. All rights reserved. This information is not intended as a substitute for professional medical care. Always follow your healthcare professional's instructions. Follow Up Care 05/11/2021 09:06:02 With:MD KAYCEE IGLESIAS Address: [facility] [address] [address] [phone] When:2-4 days [facility] Evaluation + Plan note No data available for this section [facility] Evaluation + Plan note Future Appointments Appointment Date:07/11/2022 09:00:00 AM Scheduled Provider:FERNANDA FOSTER Location:[facility] Appointment Type:[facility] documented in this encounter [facility] Work Phone: Evaluation note* Diagnosis Missed menses- Primary Absence of menstruation IUD check up Surveillance of previously prescribed intrauterine contraceptive device [facility]* Diagnosis Rhinosinusitis- Primary Unspecified sinusitis (chronic) Sore throat Acute pharyngitis [facility] Diagnosis Pain due to intrauterine contraceptive device (IUD), initial encounter ([facility])- Primary Dysmenorrhea [facility] Diagnosis Pain due to intrauterine contraceptive device (IUD), initial encounter ([facility])- Primary Dysmenorrhea documented in this encounter [facility] note* Diagnosis Pain due to intrauterine contraceptive device (IUD), initial encounter ([facility])- Primary documented in this encounter [facility] note* Diagnosis Encounter for IUD removal- Primary Encounter for removal of intrauterine contraceptive device Encounter for initial management of nuvaring General counseling for initiation of other contraceptive measures documented in this encounter [facility] note* Diagnosis Encounter for gynecological examination (general) (routine) without abnormal findings- Primary Screening for cervical cancer Screening for malignant neoplasm of the cervix Encounter for screening for human papillomavirus (HPV) Special screening examination for human papillomavirus (HPV) Screen for STD (sexually transmitted disease) Screening examination for venereal disease documented in this encounter [facility] note* Diagnosis Spotting in - Primary Spotting complicating , unspecified as to episode of care or not applicable documented in this encounter [facility] note* Diagnosis Spontaneous miscarriage- Primary Unspecified spontaneous without mention of complication documented in this encounter [facility] note* Diagnosis Pain due to intrauterine contraceptive device (IUD), initial encounter (HCC) Dysmenorrhea documented in this encounter [facility] Discharge instructions No data available for this section [facility] Progress note No data available for this section [facility] Reason for referral (narrative)* Diagnostic Procedure Only (Routine) - Authorized Specialty Diagnoses / Procedures Referred By Kate reeves Referred To Contact [facility] Diagnoses Dysmenorrhea Pain due to intrauterine contraceptive device (IUD), initial encounter (HCC) Procedures PELVIC US WHI US PELVIC NONOBSTETRIC REAL-TIME IMAGE COMPLETE Maggi White APRN.CNP [address] [place] [address] [facility] [address] [place] [address] Referral ID Status Reason Start Date Expiration Date Visits Requested Visits Authorized [id number] Authorized Auto-Generat ed Referral 08/02/2022 08/02/2023 [facility] Diagnostic Procedure Only (Routine) - Authorized Specialty Diagnoses / Procedures Referred By Kate reeves Referred To Contact [facility] Diagnoses Pain due to intrauterine contraceptive device (IUD), initial encounter (HCC) Dysmenorrhea Procedures US FEMALE PELVIS TRANSVAG US TRANSVAGINAL Maggi White APRN.CNP [address] [place] [address] [facility] Referral ID Status Reason Start Date Expiration Date Visits Requested Visits Authorized [id number] Authorized Auto-Generat ed Referral 08/12/2022 09/11/2023 1 1 [facility] for referral (narrative)* Outpatient Procedure (Routine) - Authorized Specialty Diagnoses / Procedures Referred By Kate reeves Referred To Contact [facility] Diagnoses Pain due to intrauterine contraceptive device (IUD), initial encounter (HCC) Procedures REMOVE INTRAUTERINE DEVICE REMOVE INTRAUTERINE DEVICE Maggi White APRN.CNP [address] [place] [address] [facility] [address] [place] [address] Referral ID Status Reason Start Date Expiration Date Visits Requested Visits Authorized [id number] Authorized Auto-Generat ed Referral 08/25/2022 08/25/2023 1 1 Healthcare System for referral (narrative)* Diagnostic Procedure Only (Routine) - Closed Specialty Diagnoses / Procedures Referred By Kate reeves Referred To Contact [facility] Diagnoses Pain due to intrauterine contraceptive device (IUD), initial encounter (HCC) Dysmenorrhea Procedures US FEMALE PELVIS TRANSVAG US TRANSVAGINAL Maggi White APRN.CNP [address] [place] [address] [place] [address] Referral ID Status Reason Start Date Expiration Date V isits Requested Visits Authorized [id number] Closed Auto-Generate d Referral 08/12/2022 09/11/2023 1 1 [facility] Summary Purpose Family History No Family [...] DATE CREATED AUTHOR AUTHOR'S ORGANIZ ATION 10/13/2021 [facility] ([place]) DATE CREATED AUTHOR AUTHOR'S ORGANIZ ATION 03/04/2022 [facility] DATE CREATED AUTHOR AUTHOR'S ORGANIZ ATION 07/20/2022 [facility] DATE CREATED AUTHOR AUTHOR'S ORGANIZ ATION 06/16/2023 [facility] Care Teams (unrecognized sec tion and content) Consumer Loan Specialist Relationship Specialty Start Date End Date Kaycee Iglesias MD [address] [place], [place] [id number] PCP - General Pediatrics 04/04/14 Consumer Loan Specialist Relationship Specialty Start Date End Date Fernanda Foster, REFRIGERATOR REPAIR TECHNICIAN.LIU PCP - General 06/27/22 Consumer Loan Specialist Relationship Specialty Start Date End Date Fernanda Foster, REFRIGERATOR REPAIR TECHNICIAN.BUSINESS EXCELLENCE LEADER PCP - General 06/27/22 Consumer Loan Specialist Relationship Specialty Start Date End Date Fernanda Foster, REFRIGERATOR REPAIR TECHNICIAN.BUSINESS EXCELLENCE LEADER PCP - General 06/27/22 Consumer Loan Specialist Relationship Specialty Start Date End Date Fernanda Foster, REFRIGERATOR REPAIR TECHNICIAN.BUSINESS EXCELLENCE LEADER PCP - General 06/27/22 Consumer Loan Specialist Relationship Specialty Start Date End Date Fernanda Foster, REFRIGERATOR REPAIR TECHNICIAN.BUSINESS EXCELLENCE LEADER PCP - General 06/27/22 Consumer Loan Specialist Relationship Specialty Start Date End Date Fernanda Foster, REFRIGERATOR REPAIR TECHNICIAN.BUSINESS EXCELLENCE LEADER PCP - General 06/27/22 Consumer Loan Specialist Relationship Specialty Start Date End Date Fernanda Foster, REFRIGERATOR REPAIR TECHNICIAN.BUSINESS EXCELLENCE LEADER PCP - General 06/27/22 Consumer Loan Specialist Relationship Specialty Start Date End Date Fernanda Foster, REFRIGERATOR REPAIR TECHNICIAN.BUSINESS EXCELLENCE LEADER PCP - General 06/27/22 Consumer Loan Specialist Relationship Specialty Start Date End Date Ruth AnnFernanda tsang APRN.[facility] - General 06/27/22 Source Comments (unrecognize d section and content) In the event this informatio n is protected by the Federal Confidentiality of Alcohol and Drug Abuse Patient Records regulations: The Federal rules restrict any use of the information to criminally investigate or prosecute any alcohol or drug abuse patient.[facility] the event this information is protected by the Federal Confidentiality of Alcohol and Drug Abuse Patient Records regulations: The Federal rules restrict any use of the information to criminally investigate or prosecute any alcohol or drug abuse patient.[facility] Center[facility] the event this information is protected by the Federal Confidentiality of Alcohol and Drug Abuse Patient Records regulations: The Federal rules restrict any use of the information to criminally investigate or prosecute any alcohol or drug abuse patient.[facility] Center[facility] the event this information is protected by the Federal Confidentiality of Alcohol and Drug Abuse Patient Records regulations: The Federal rules restrict any use of the information to criminally investigate or prosecute any alcohol or drug abuse patient.[facility] CenterIn the event this information is protected by the Federal Confidentiality of Alcohol and Drug Abuse Patient Records regulations: The Federal rules restrict any use of the information to criminally investigate or prosecute any alcohol or drug abuse patient.[facility] CenterIn the event this information is protected by the Federal Confidentiality of Alcohol and Drug Abuse Patient Records regulations: The Federal rules restrict any use of the information to criminally investigate or prosecute any alcohol or drug abuse patient.[facility] CenterIn the event this information is protected by the Federal Confidentiality of Alcohol and Drug Abuse Patient Records regulations: The Federal rules restrict any use of the information to criminally investigate or prosecute any alcohol or drug abuse patient.[facility] CenterIn the event this information is protected by the Federal Confidentiality of Alcohol and Drug Abuse Patient Records regulations: The Federal rules restrict any use of the information to criminally investigate or prosecute any alcohol or drug abuse patient.[facility] CenterIn the event this information is protected by the Federal Confidentiality of Alcohol and Drug Abuse Patient Records regulations: The Federal rules restrict any use of the information to criminally investigate or prosecute any alcohol or drug abuse patient.[facility] CenterIn the event this information is protected by the Federal Confidentiality of Alcohol and Drug Abuse Patient Records regulations: The Federal rules restrict any use of the information to criminally investigate or prosecute any alcohol or drug abuse patient.[facility] CenterIn the event this information is protected by the Federal Confidentiality of Alcohol and Drug Abuse Patient Records regulations: The Federal rules restrict any use of the information to criminally investigate or prosecute any alcohol or drug abuse patient.[facility] CenterIn the event this information is protected by the Federal Confidentiality of Alcohol and Drug Abuse Patient Records regulations: The Federal rules restrict any use of the information to criminally investigate or prosecute any alcohol or drug abuse patient.[facility] CenterIn the event this information is protected by the Federal Confidentiality of Alcohol and Drug Abuse Patient Records regulations: The Federal rules restrict any use of the information to criminally investigate or prosecute any alcohol or drug abuse patient.[facility] Reason for Visit (unrecogniz ed section and content) Reason Comments Nasal Congestion drainage, productive cough, sore throat and headache x over 1 week Reason Comments Discussion Painful cycle withou t the normal flow with IUD Reason Comments Orders Appointment Reason Comments IUD Removal Specialty Diagnoses / Procedures Referred By Contac t Referred To Contact [facility] Diagnoses Pain due to intrauterine contraceptive device (IUD), initial encounter ([facility]) Procedures REMOVE INTRAUTERINE DEVICE REMOVE INTRAUTERINE DEVICE Maggi White APRN.BUSINESS EXCELLENCE LEADER [address] [place] [address] [facility] [address] [place] [address] Referral ID Status Reason Start Date Expiration Date V isits Requested Visits Authorized [id number] Closed Auto-Generate d Referral 08/25/2022 08/25/2023 1 1 Reason Comments Well Woman Specialty Diagnoses / Procedures Referred By Contac t Referred To Contact [facility] Diagnoses Encounter for annual routine gynecological examination annual exam Procedures WELLNESS EXAMS EST 18-39 YRS est [facility] patient Self Maggi White APRN.BUSINESS EXCELLENCE LEADER [address] [place] [address] Referral ID Status Reason Start Date Expiration Date V isits Requested Visits Authorized [id number] Closed Financial Clearance Required - Self Pay [...] FEMALE PELVIS TRANSVAG US TRANSVAGINAL Maggi White APRN.BUSINESS EXCELLENCE LEADER [address] [place] [address] [place] [address] Referral ID Status Reason Start Date Expiration Date V isits Requested Visits Authorized [id number] Closed Auto-Generate d Referral 08/12/2022 09/11/2023 1 1 Care Team (unrecognized sect ion and content) Care Team Personnel Name: ANNA DOBBS APRN-BUSINESS EXCELLENCE LEADER Position: P4 Advanced Practice Nurse Member Role: Primary Care Physician Address: Address: [address] [place] [id number]- Care Team Related Persons Name: MARIA ISABEL [...] BE BASED ON THE PRIMARY CLINICAL RECORDS. [employer] provides no warranty or guarantee of the accuracy or completeness of information in this document.
[2023-08-21 10:04] LABS: Absolute Neutrophil Count 8.1 X10^3/uL (2.0-7.7); Basophil# 0.06 X10^3/uL; Basophil% 0.6 % (0-1); Eosinophil# 0.07 X10^3/uL; Eosinophils% 0.7 % (0-5); Hematocrit 43.1 % (37-47); Lymphocyte % 11.9 % (19-41); Mean Corp Hgb Conc 32.5 g/dL (32-36); Mean Corpuscular Hgb 29.4 pg (27.0-32.0); Mean Corpuscular Volume 90.5 fL (81-99); Mean Platelet Vol. 10.1 fl (6.2-12.0); Monocyte# 0.61 X10^3/uL; Monocyte% 6.1 % (0-10); NRBC Flagged by Analyzer 0 % (0-5); Neutrophil # 8.06 X10^3/uL (2.7-7.7); Neutrophil % 80.2 % (47-70); Platelet Count 310 K/mm3 (150-450); RBC Distribution Width CV 13.1 % (11.6-14.6); RBC Distribution Width SD 42.7 fl (35.1-43.9); Red Blood Count 4.76 M/mm3 (4.2-5.4); White Blood Count 10.1 K/mm3 (4.4-11.0)
[2023-08-21 10:56] LABS: NATERA MAILED SPECIMEN
[2023-08-21 11:09] LABS: HIV - WCH Non-Reactive (Nonreactive); Hepatitis B Surface Antigen Non-Reactive (Nonreactive); Hepatitis C Antibody Non-Reactive (Nonreactive); Rubella IgG Reactive (Nonreactive); Syphilis Antibodies Non-reactive
== END | disposition home or self-care (01) ==
PROVIDERS: Visit Provider Obstetrics & Gynecology
DX: Z34.81 Encounter for supervision of other normal pregnancy, first trimester (principal); Z31.430 Encounter of female for testing for genetic disease carrier status for procreative management; Z3A.00 Weeks of gestation of pregnancy not specified
CPT/HCPCS: 36415; 85025; 86703; 86762; 86780; 86803; 86850; 86900; 86901; 87340

== ENCOUNTER 2023-08-25 09:10 | Outpatient (CLI) | payer OTHER, BC, SELFPAY ==
[2023-08-25 09:17] VITALS: BP 127/68; PULSE 81; RESP 16; TEMP 36.5; O2SAT 99; BMI 28.1
[2023-08-25] MEDS: 0.9% NaCl Peripheral Flush Adult/Peds IV (09:25)
--- OUTSIDE RECORDS SUMMARY | 2023-08-25 09:30 | XMS RPT_ITS | CCD ---
Author Name Unknown Address [address] [place] [address] Organization [facility] Care Team Providers Care Technical Buyer Name Role Phone Pending Provider Unavailable Unavailable Unavailable Unavailable PHYSICIAN, NONE Primary Care Physician Unavailab le Unavailable Primary Care Provider UnavailKAYCEE Grimes Primary Care Physician Gisele Diego MD Primary Care Provider [phone] Kaycee Iglesias MD Primary Care Provider RINKU [...] Drug Class(es) Dates Sig (Normalized) Sig (Original) [id number] 200 actuat albuterol 0.09 mg/actuat metered dose [...] 69.67 kg Alicja Velez APRN.CNM Work Phone: [facility] 05-30-2023 14:35-0400 Diastolic blood pressure 64 mm[Hg] Alicja Velez APRN.CNM Work Phone: [facility] 05-30-2023 14:35-0400 Systolic blood pressure 100 mm[Hg] Alicja Velez APRN.CNM Work Phone: [facility] 10-11-2022 08:56-0400 Body height 160 cm Maggi White APRN.CNP Work Phone: [facility] 10-11-2022 08:56-0400 Body weight 58.97 kg Maggi White APRN.CNP Work Phone: [facility] 10-11-2022 08:56-0400 Diastolic blood pressure 70 mm[Hg] Maggi White APRN.VASC TECH Work Phone: [facility] 10-11-2022 08:56-0400 Systolic blood pressure 114 mm[Hg] Maggi White DIE TRY OUT WORKER STAMPING.VASC TECH Work Phone: [facility] 08-29-2022 13:54-0500 Body weight 59.88 kg Maggi White APRN.VASC TECH Work Phone: [facility] 08-29-2022 13:54-0500 Diastolic blood pressure 58 mm[Hg] Maggi White APRN.VASC TECH Work Phone: [facility] 08-29-2022 13:54-0500 Systolic blood pressure 100 mm[Hg] Maggi White DIE TRY OUT WORKER STAMPING.VASC TECH Work Phone: [facility] 08-02-2022 11:14-0500 Body weight 60.33 kg Maggi White APRN.VASC TECH Work Phone: [facility] 08-02-2022 11:14-0500 Diastolic blood pressure 52 mm[Hg] Maggi White APRN.VASC TECH Work Phone: [facility] 08-02-2022 11:14-0500 Systolic blood pressure 96 mm[Hg] Maggi White APRN.VASC TECH Work Phone: [facility] 06-27-2022 08:17-0500 Body temperature 98.91 [degF] Becky Grewal APRN.VASC TECH Work Phone: [facility] 06-27-2022 08:17-0500 Body weight 58.97 kg Becky Grewal APRN.VASC TECH Work Phone: [facility] 06-27-2022 08:17-0500 Diastolic blood pressure 72 mm[Hg] Becky Grewal APRN.VASC TECH Work Phone: [facility] 06-27-2022 08:17-0500 Heart rate 92 /min Becky Grewal APRN.VASC TECH Work Phone: [facility] 06-27-2022 08:17-0500 Respiratory rate 18 /min Becky Grewal APRN.VASC TECH Work Phone: [facility] 06-27-2022 08:17-0500 SaO2% (BldA) [Mass fraction] 97 % Becky Grewal APRN.VASC TECH Work Phone: [facility] 06-27-2022 08:17-0500 Systolic blood pressure 126 mm[Hg] Becky Grewal APRN.VASC TECH Work Phone: [facility] 03-07-2022 06:55-0400 Body weight 61.78 kg Maggi White APRN.VASC TECH Work Phone: [facility] 03-07-2022 06:55-0400 Diastolic blood pressure 60 mm[Hg] Maggi White APRN.VASC TECH Work Phone: [facility] 03-07-2022 06:55-0400 Systolic blood pressure 98 mm[Hg] Maggi White APRN.VASC TECH Work Phone: [facility] 10-04-2021 09:43-0500 Body height 154.94 cm [...] Provider Facility Start: 06-14-2023 End: 06-15-2023 ambulatory [facility] Facility:[facility] Start: 06-08-2023 End: 06-09-2023 ambulatory [facility] Facility:[facility] Start: 06-05-2023 End: 06-06-2023 ambulatory [facility] Facility:[facility] Start: 06-01-2023 End: 06-02-2023 ambulatory [facility] Facility:[facility] Start: 05-30-2023 End: 05-30-2023 ambulatory [facility] Facility:[facility] Start: 05-30-2023 End: 05-30-2023 Patient encounter procedure Alicja Velez ENEDELIA.CNM Work Phone: OB/Gynecology Procedures Date Procedure Procedure Detail Performing Clinician Start: 08-22-2022 Us transvaginal Maggi layton APRN.CNP Work Phone: Start: 06-27-2022 STREP A MOLECULAR (POC) [facility] Provider Start: 03-07-2022 Urine test visual color cmprsn meths Maggi White APRN.VASC TECH Work Phone: Start: 02-28-2022 Echo tthrc r-t 2d w/wom-mode compl spec&colr d Gisele Diego MD Work Phone: None (qualifier value) [facility] ARANGO MD Plan of Treatment Date Care Activity Detail Author Start: 10-05-2031 DTaP/Tdap/Td vaccine (8 - Td or Tdap) DTaP/Tdap/Td vaccine (8 - Td or Tdap) [facility] Start: 10-05-2031 Urine microalbumin profile DTaP,Tdap,Td Vaccine (8 - Td or Tdap) [facility] Start: 10-11-2025 PAP TESTING PAP TESTING [facility] Start: 10-12-2023 CHLAMYDIA SCREENING (18-24) CHLAMYDIA SCREENING (18-24) [facility] Start: 10-12-2023 GC (GONORRHEA) SCREENING (18-24) GC (GONORRHEA) SCREENING (18-24) [facility] Start: 08-22-2023 Urine microalbumin profile [facility] Start: 03-31-2023 Influenza vaccination Influenza Vaccine (#1) [facility] Start: 2022 PAP TESTING PAP TESTING [facility] Start: 08-02-2022 End: 08-02-2023 PELVIC US WHI PELVIC US WHI Anc Imaging Routine Dysmenorrhea Pain due to intrauterine contraceptive device (IUD), initial encounter (HCC) Expected: 08/02/2022, Expires: 08/02/2023 [facility] Work Phone: Immunizations Immunization Date Immunization Notes Care Provider Fa cility 10-04-2021 tetanus toxoid, redu beryl diphtheria toxoid, and acellular pertussis vaccine, adsorbed; Translations: [Tdap] Clarke Garcia MD Work Phone: [facility] Work Phone: Payers Date Payer Category Payer Private Health Insurance AEKAMLESH LIANG POS [id number] 2023-Present [phone] [address] [place] [address] POS [id number] 2023 Private Health Insurance [id number] 2022 Medicaid [id number] 2021 Unknown [id number] 2020 Medicaid [id number] 2020 Unknown [id number] 2001 Unknown [id number] 2001 Unknown [id number] 2001 Unknown [id number] 27 Unknown [facility] Social History Date Type Detail Facility Never smoker [facility] Sex Assigned At Female [facility] Tobacco smoking status [facility] Tobacco smoking consumption unknown [facility] Start: 2001 Sex Assigned At Not on file [facility] Work Phone: Start: 05-11-2021 End: 03-07-2022 Never smoked tobacco (finding) [facility] History of tobacco use Passive smoker [facility] Work Phone: Start: 03-07-2022 Tobacco use and exposure Smokeless tobacco non-user [facility] Work Phone: Start: 03-07-2022 End: 08-02-2022 Alcohol intake Current non-drinker of alcohol (finding) [facility] Start: 03-07-2022 Tobacco Comment mother smokes inside [facility] Start: 02-25-2022 End: 06-27-2022 Exposure to SARS-CoV-2 (event) Not sure [facility] Work Phone: Start: 08-22-2022 End: 10-11-2022 History of Social function [facility] Start: 08-22-2022 End: 10-11-2022 Tobacco use panel [facility] National Score (1-100), lower number is lower risk 56 [facility] Clinical Notes 05-11-2021 to 05-30-2023 Alicja Velez APRN.CNM - 05/30/2023 2:31 PM EDTTelephone Encounter - Arely Akins RN - 05/30/2023 10:24 AM EDTTelephone Encounter - Arely Akins RN - 05/30/2023 10:24 AM EDT Note Date & Type Note Facility 05-30-2023 Note HNO ID: [id number] Author: Alicja Velez APRN.CNM Service: ? Author Type: Marine Photographer Type: Progress Notes Filed: 05/30/2023 3:13 PM Note Text: Makeda Pete is a 22 year old female who presents with boyfriend for follow up visit LMP was 04/05/23. Patient had positive test and was seen at [facility]. US completed on 05/22/23 that stated 5w1d [...] L0 SAB0 IAB0 Ectopic0 Multiple0 Live Births0 Glucose And Syrup Weigher History LMP: 09/21/2022, Recent Age at Menarche: 13 Age at First : Age at Menopause: Glucose And Syrup Weigher History Comments: Sexual Activity: Yes; Male; Nuvaring [...] RTO as needed Alicja Velez APRN.[facility] 05-30-2023 History of Presen t illness Narrative Makeda Pete is a 22 year old female who presents with boyfriend for follow up visit LMP was 04/05/23. Patient had positive test and was seen at [facility]. US completed on 05/22/23 that stated 5w1d [...] L0 SAB0 IAB0 Ectopic0 Multiple0 Live Births0 Glucose And Syrup Weigher History LMP: 09/21/2022, Recent Age at Menarche: 13 Age at First : Age at Menopause: Glucose And Syrup Weigher History Comments: Sexual Activity: Yes; Male; Nuvaring [...] Alicja Velez APRN.CNM documented in this encounter [facility] 05-30-2023 Miscellaneous Notes Formattin g of [...] Alicja Velez APRN.CNM documented in this encounter [facility] 05-29-2023 Miscellaneous Notes Formattin g of this note might be different from the original. Patient did not go to lab on Monday. Called patient and she will go today. Arely Akins RN Patient called and appointment scheduled for Monday. Patient will get repeat HCG drawn on Monday. Keep phone note open for HCG results. Shannon Lora RN Patient seen at [facility] tonight in ED for vaginal spotting. Patient [...] Alicja Velez APRN.CNM documented in this encounter [facility] 05-25-2023 Miscellaneous Notes Formattin g of this note might be different from the original. Pt notified via [employer]. Will await further response from pt. Sylvia Driscoll LPN Please just have patient monitor at home. Review bleeding precautions. Keep scheduled appointment. Alicja Velez APRN.CNM LMP 04/05/23 7w1d Patient calling c/o spotting x3 days. Notices mostly only with wiping. She did have u/s done on 05/22 at [facility] and bleeding started after that. She was told she was measuring 5w1d that day though. No cramping, pain or other concerns. NOB scheduled with 06/05. Please advise. Arely Akins RN documented in this encounter [facility] 10-11-2022 Note HNO ID: [id number] Author: Maggi White APRN.LIU Service: ? Author Type: Nurse Practitioner Type: Progress Notes Filed: 10/11/2022 9:23 AM Note Text: Success[employer] Consultant offered:Patient maxine De Jesus Is a 22 [...] L0 SAB0 IAB0 Ectopic0 Multiple0 Live Births0 Glucose And Syrup Weigher History LMP: 08/27/2022, IUD Age at Menarche: Age at First : Age at Menopause: Glucose And Syrup Weigher History Comments: Sexual Activity: Yes; No partner [...] external genitalia normal, normal Bartholin's glands, urethra, Streetman's glands, no vulvar lesions, no cervical lesions, [...] or sooner as needed Maggi White APRN.CNP [facility] 10-11-2022 Instructions Maggi White APRN.CNP - 10/11/2022 9:07 AM EDT Check on BRCA testing of mom documented in this encounter [facility] 10-11-2022 History of Presen t illness Narrative Successfactors Consultant offered:Patient maxine De Jesus Is a 22 [...] L0 SAB0 IAB0 Ectopic0 Multiple0 Live Births0 Glucose And Syrup Weigher History LMP: 08/27/2022, IUD Age at Menarche: Age at First : Age at Menopause: Glucose And Syrup Weigher History Comments: Sexual Activity: Yes; No partner [...] external genitalia normal, normal Bartholin's glands, urethra, Streetman's glands, no vulvar lesions, no cervical lesions, [...] Maggi White APRN.LIU documented in this encounter [facility] 08-29-2022 Note HNO ID: [id number] Author: Maggi White APRN.CNP Service: ? Author Type: Nurse Practitioner Type: Progress Notes Filed: 08/29/2022 2:38 PM Note Text: [employer] Consultant offered: Patient declines. Makeda presents for removal [...] well. Contraception plans: Numineing Maggi White APRN.CNP [facility] 08-29-2022 History of Presen t illness Narrative Success[employer] Consultant offered: Patient declines. Makeda presents for removal [...] Aida White APRN.CNP documented in this encounter [facility] 08-25-2022 Miscellaneous Notes Formattin g of [...] Sylvia Driscoll LPN documented in this encounter [facility] 08-22-2022 Note HNO ID: [id number] Author: Teresa Nash RDMS Service: ? Author Type: Foreign Diplomat Type: Progress Notes Filed: 08/22/2022 9:53 AM [...] Nash RDMS August 22, 2022 9:53 AM [facility] 08-22-2022 History of Presen t illness [...] 2022 9:53 AM documented in this encounter [facility] 08-12-2022 Miscellaneous Notes Formattin g of [...] Arely Akins RN documented in this encounter [facility] 08-02-2022 Note HNO ID: [id number] Author: Maggi White APRN.VASC TECH Service: ? Author Type: Nurse Practitioner Type: [...] L0 SAB0 IAB0 Ectopic0 Multiple0 Live Births0 Glucose And Syrup Weigher History LMP: 12/23/2021, IUD Age at Menarche: Age at First : Age at Menopause: Glucose And Syrup Weigher History Comments: Sexual Activity: Yes; No partner [...] by INTRAUTERINE route as directed. LOT # [id number] EXP 12/27/21 Sylvia Americo MANAGER [employer]PD[employer]K No current facility-administered medications for this visit. [...] which included preparing to see the patient, [id number] patient care, completing clinical documentation, obtaining and/or reviewing separately obtained history, performing a medically appropriate examination, counseling and educating the patient/family/caregiver, and ordering medications, tests, or procedures. [facility] 08-02-2022 Instructions Maggi White APRN.LIU - 08/02/2022 11:34 AM EST Ibuprofen 600 mg every 6 hours OR Ibuprofen 800 mg every 8 hours OR Aleve 440-500 mg every 12 hours and heat. documented in this encounter [facility] 08-02-2022 History of Presen t illness [...] L0 SAB0 IAB0 Ectopic0 Multiple0 Live Births0 Glucose And Syrup Weigher History LMP: 12/23/2021, IUD Age at Menarche: Age at First : Age at Menopause: Glucose And Syrup Weigher History Comments: Sexual Activity: Yes; No partner [...] by INTRAUTERINE route as directed. LOT # [id number] EXP 12/27/21 Sylvia Driscoll LPN No current [...] results. Follow- up as needed. Maggi White APRN.VASC TECH I spent a total of 20 minutes on the date of the service which included preparing to see the patient, [id number] patient care, completing clinical documentation, obtaining and/or reviewing separately obtained history, performing a medically appropriate examination, counseling and educating the patient/family/caregiver, and ordering medications, tests, or procedures. documented in this encounter [facility] 06-27-2022 Note HNO ID: [id number] Author: Becky Grewal APRN.LIU Service: ? Author [...] by INTRAUTERINE route as directed. LOT # [id number] EXP 12/27/21 Sylvia Driscoll LPN PROAIR HFA [...] Patient agreeable to treatment plan. Becky Grewal APRN.[facility] 06-27-2022 History of Presen t illness [...] by INTRAUTERINE route as directed. LOT # [id number] EXP 12/27/21 Sylvia Driscoll LPN PROAIR HFA [...] Becky Grewal APRN.LIU documented in this encounter [facility] 03-07-2022 History of Presen t illness [...] OB History No obstetric history on file. Glucose And Syrup Weigher History LMP: 12/23/2021, IUD Age at Menarche: Age at First : Age at Menopause: Glucose And Syrup Weigher History Comments: Sexual Activity: Yes; No partner [...] by INTRAUTERINE route as directed. LOT # [id number] EXP 12/27/21 Sylvia Driscoll CANDACE No current facility-administered medications for this visit. Allergies As of Date: 03/07/2022 (No Known Allergies) Fully Assessed 03/07/2022 REVIEW OF SYSTEMS Allergies and current medication updated:Yes EXAM: Wt 136 lb 3.2 oz (61.8kg) LMP 12/23/2021 GENERAL: pleasant, female in no apparent distress CHEST: Normal inspiratory effort PELVIC: external genitalia normal, normal Bartholin's glands, urethra, Streetman's glands, no vulvar lesions, no cervical lesions, [...] which included preparing to see the patient, [id number] patient care, completing clinical documentation, obtaining and/or reviewing separately obtained history, performing a medically appropriate examination, counseling and educating the patient/family/caregiver, and ordering medications, tests, or procedures Maggi White APRN.LIU documented in this encounter [facility] 10-04-2021 History of Presen t illness [...] or bleeding from the nose or ears [id number] [employer]. [address] [place] [address]. All rights reserved. This information is not intended as a substitute for professional medical care. Always follow your healthcare professional's instructions. Follow Up Care 05/11/2021 09:06:02 With:MD KAYCEE IGLESIAS Address: [facility] [address] [address] [phone] When:2-4 days [facility] Evaluation + Plan note No data available for this section [facility] Evaluation + Plan note Future Appointments Appointment Date:07/11/2022 09:00:00 AM Scheduled Provider:FERNANDA FOSTER Location:[facility] Appointment Type:[facility] documented in this encounter [facility] Work Phone: Evaluation note* Diagnosis Missed menses- Primary Absence of menstruation IUD check up Surveillance of previously prescribed intrauterine contraceptive device [facility] Diagnosis Rhinosinusitis- Primary Unspecified sinusitis (chronic) Sore throat Acute pharyngitis [facility] Diagnosis Pain due to intrauterine contraceptive device (IUD), initial encounter ([facility])- Primary Dysmenorrhea [facility] [place] Diagnosis Pain due to intrauterine contraceptive device (IUD), initial encounter ([facility])- Primary Dysmenorrhea documented in this encounter [facility] note* Diagnosis Pain due to intrauterine contraceptive device (IUD), initial encounter ([facility])- Primary documented in this encounter [facility] note* Diagnosis Encounter for IUD removal- Primary Encounter for removal of intrauterine contraceptive device Encounter for initial management of nuvaring General counseling for initiation of other contraceptive measures documented in this encounter [facility] note* Diagnosis Encounter for gynecological examination (general) (routine) without abnormal findings- Primary Screening for cervical cancer Screening for malignant neoplasm of the cervix Encounter for screening for human papillomavirus (HPV) Special screening examination for human papillomavirus (HPV) Screen for STD (sexually transmitted disease) Screening examination for venereal disease documented in this encounter [facility] note* Diagnosis Spotting in - Primary Spotting complicating , unspecified as to episode of care or not applicable documented in this encounter [facility] note* Diagnosis Spontaneous miscarriage- Primary Unspecified spontaneous without mention of complication documented in this encounter [facility] note* Diagnosis Pain due to intrauterine contraceptive device (IUD), initial encounter (HCC) Dysmenorrhea documented in this encounter [facility] Discharge instructions No data available for this section [facility] Progress note No data available for this section [facility] Reason for referral (narrative)* Diagnostic Procedure Only (Routine) - Authorized Specialty Diagnoses / Procedures Referred By Kate reeves Referred To Contact [facility] Diagnoses Dysmenorrhea Pain due to intrauterine contraceptive device (IUD), initial encounter (HCC) Procedures PELVIC US WHI US PELVIC NONOBSTETRIC REAL-TIME IMAGE COMPLETE Maggi White APRN.CNP [address] [place] [address] [facility] [address] [place] [address] Referral ID Status Reason Start Date Expiration Date Visits Requested Visits Authorized [id number] Authorized Auto-Generat ed Referral 08/02/2022 08/02/20[address] [facility] Diagnostic Procedure Only (Routine) - Authorized Specialty Diagnoses / Procedures Referred By Kate reeves Referred To Contact [facility] Diagnoses Pain due to intrauterine contraceptive device (IUD), initial encounter (HCC) Dysmenorrhea Procedures US FEMALE PELVIS TRANSVAG US TRANSVAGINAL Maggi White APRN.CNP [address] [place] [address] [facility] Referral ID Status Reason Start Date Expiration Date Visits Requested Visits Authorized [id number] Authorized Auto-Generat ed Referral 08/12/2022 09/11/2023 1 1 [facility] for referral (narrative)* Outpatient Procedure (Routine) - Authorized Specialty Diagnoses / Procedures Referred By Kate reeves Referred To Contact [facility] Diagnoses Pain due to intrauterine contraceptive device (IUD), initial encounter (HCC) Procedures REMOVE INTRAUTERINE DEVICE REMOVE INTRAUTERINE DEVICE Maggi White APRN.CNP [address] [place] [address] [facility] [address] [place] [address] Referral ID Status Reason Start Date Expiration Date Visits Requested Visits Authorized [id number] Authorized Auto-Generat ed Referral 08/25/2022 08/25/2023 1 1 [facility] for referral (narrative)* Diagnostic Procedure Only (Routine) - Closed Specialty Diagnoses / Procedures Referred By Kate reeves Referred To Contact [facility] Diagnoses Pain due to intrauterine contraceptive device (IUD), initial encounter (HCC) Dysmenorrhea Procedures US FEMALE PELVIS TRANSVAG US TRANSVAGINAL Maggi White APRN.CNP [address] [place] [address] [place] [address] Referral ID Status Reason Start Date Expiration Date V isits Requested Visits Authorized [id number] Closed Auto-Generate d Referral 08/12/2022 09/11/2023 [address] [facility] Summary Purpose Family History No Family History [...] DATE CREATED AUTHOR AUTHOR'S ORGANIZ ATION 10/13/2021 [facility] DATE CREATED AUTHOR AUTHOR'S ORGANIZ ATION 03/04/2022 [facility] DATE CREATED AUTHOR AUTHOR'S ORGANIZ ATION 07/20/2022 [facility] DATE CREATED AUTHOR AUTHOR'S ORGANIZ ATION 06/16/2023 [facility] Care Teams (unrecognized sec tion and content) Technical Buyer Relationship Specialty Start Date End Date Kaycee Iglesias MD [address] [place], [place] [id number] PCP - General Pediatrics 04/04/14 Technical Buyer Relationship Specialty Start Date End Date Fernanda Foster, DIE TRY OUT WORKER STAMPING.LIU PCP - General 06/27/22 Technical Buyer Relationship Specialty Start Date End Date Fernanda Foster, DIE TRY OUT WORKER STAMPING.VASC TECH PCP - General 06/27/22 Technical Buyer Relationship Specialty Start Date End Date Fernanda Foster, DIE TRY OUT WORKER STAMPING.VASC TECH PCP - General 06/27/22 Technical Buyer Relationship Specialty Start Date End Date Fernanda Foster, DIE TRY OUT WORKER STAMPING.VASC TECH PCP - General 06/27/22 Technical Buyer Relationship Specialty Start Date End Date Fernanda Foster, DIE TRY OUT WORKER STAMPING.VASC TECH PCP - General 06/27/22 Technical Buyer Relationship Specialty Start Date End Date Fernanda Foster, DIE TRY OUT WORKER STAMPING.VASC TECH PCP - General 06/27/22 Technical Buyer Relationship Specialty Start Date End Date Fernanda Foster, DIE TRY OUT WORKER STAMPING.VASC TECH PCP - General 06/27/22 Technical Buyer Relationship Specialty Start Date End Date Fernanda Foster, DIE TRY OUT WORKER STAMPING.VASC TECH PCP - General 06/27/22 Technical Buyer Relationship Specialty Start Date End Date Ruth AnnFernanda tsang APRN.[facility] - General 06/27/22 Source Comments (unrecognize d section and content) In the event this informatio n is protected by the Federal Confidentiality of Alcohol and Drug Abuse Patient Records regulations: The Federal rules restrict any use of the information to criminally investigate or prosecute any alcohol or drug abuse patient.[facility] the event this information is protected by the Federal Confidentiality of Alcohol and Drug Abuse Patient Records regulations: The Federal rules restrict any use of the information to criminally investigate or prosecute any alcohol or drug abuse patient.[facility] the event this information is protected by the Federal Confidentiality of Alcohol and Drug Abuse Patient Records regulations: The Federal rules restrict any use of the information to criminally investigate or prosecute any alcohol or drug abuse patient.[facility] the event this information is protected by the Federal Confidentiality of Alcohol and Drug Abuse Patient Records regulations: The Federal rules restrict any use of the information to criminally investigate or prosecute any alcohol or drug abuse patient.[facility]In the event this information is protected by the Federal Confidentiality of Alcohol and Drug Abuse Patient Records regulations: The Federal rules restrict any use of the information to criminally investigate or prosecute any alcohol or drug abuse patient.[facility] the event this information is protected by the Federal Confidentiality of Alcohol and Drug Abuse Patient Records regulations: The Federal rules restrict any use of the information to criminally investigate or prosecute any alcohol or drug abuse patient.[facility] Hospital[facility] the event this information is protected by the Federal Confidentiality of Alcohol and Drug Abuse Patient Records regulations: The Federal rules restrict any use of the information to criminally investigate or prosecute any alcohol or drug abuse patient.[facility] HospitalIn the event this information is protected by the Federal Confidentiality of Alcohol and Drug Abuse Patient Records regulations: The Federal rules restrict any use of the information to criminally investigate or prosecute any alcohol or drug abuse patient.[facility] HospitalIn the event this information is protected by the Federal Confidentiality of Alcohol and Drug Abuse Patient Records regulations: The Federal rules restrict any use of the information to criminally investigate or prosecute any alcohol or drug abuse patient.[facility] HospitalIn the event this information is protected by the Federal Confidentiality of Alcohol and Drug Abuse Patient Records regulations: The Federal rules restrict any use of the information to criminally investigate or prosecute any alcohol or drug abuse patient.[facility] HospitalIn the event this information is protected by the Federal Confidentiality of Alcohol and Drug Abuse Patient Records regulations: The Federal rules restrict any use of the information to criminally investigate or prosecute any alcohol or drug abuse patient.[facility] HospitalIn the event this information is protected by the Federal Confidentiality of Alcohol and Drug Abuse Patient Records regulations: The Federal rules restrict any use of the information to criminally investigate or prosecute any alcohol or drug abuse patient.[facility] HospitalIn the event this information is protected by the Federal Confidentiality of Alcohol and Drug Abuse Patient Records regulations: The Federal rules restrict any use of the information to criminally investigate or prosecute any alcohol or drug abuse patient.[facility] Reason for Visit (unrecogniz ed section and content) Reason Comments Nasal Congestion drainage, productive cough, sore throat and headache x over 1 week Reason Comments Discussion Painful cycle withou t the normal flow with IUD Reason Comments Orders Appointment Reason Comments IUD Removal Specialty Diagnoses / Procedures Referred By Contac t Referred To Contact [facility] Diagnoses Pain due to intrauterine contraceptive device (IUD), initial encounter ([facility]) Procedures REMOVE INTRAUTERINE DEVICE REMOVE INTRAUTERINE DEVICE Maggi White APRN.VASC TECH [address] [place] [address] [facility] [address] [place] [address] Referral ID Status Reason Start Date Expiration Date V isits Requested Visits Authorized [id number] Closed Auto-Generate d Referral 08/25/2022 08/25/2023 1 1 Reason Comments Well Woman Specialty Diagnoses / Procedures Referred By Contac t Referred To Contact [facility] Diagnoses Encounter for annual routine gynecological examination annual exam Procedures WELLNESS EXAMS EST 18-39 YRS est [facility] patient Self Maggi White APRN.VASC TECH [address] [place] [address] Referral ID Status Reason Start Date Expiration Date V isits Requested Visits Authorized [id number] Closed Financial Clearance Required - Self Pay [...] FEMALE PELVIS TRANSVAG US TRANSVAGINAL Maggi White APRN.VASC TECH [address] [place] [address] [place] [address] Referral ID Status Reason Start Date Expiration Date V isits Requested Visits Authorized [id number] Closed Auto-Generate d Referral 08/12/2022 09/11/2023 1 1 Care Team (unrecognized sect ion and content) Care Team Personnel Name: ANNA DOBBS APRN-VASC TECH Position: P4 Advanced Practice Nurse Member Role: Primary Care Physician Address: Address: [address] [place] [phone]- Care Team Related Persons Name: MARIA ISABEL [...] BE BASED ON THE PRIMARY CLINICAL RECORDS. [employer] provides no warranty or guarantee of the accuracy or completeness of information in this document.
[2023-08-25] MEDS: Ondansetron 4 MG/2 ML Vial IV (09:37)
[2023-08-25] MEDS: Dextrose 5%-Lactated Ringers 1,000 ML 999 ML IV (09:37)
[2023-08-25] MEDS: proMETHazine 25 MG/ML Syringe 12.5 MG IM (10:53)
[2023-08-25 11:01] VITALS: BP 114/60; PULSE 82; RESP 16; TEMP 36.7; O2SAT 100
== END 2023-08-25 09:11 | disposition home or self-care (01) ==
LOC: MEDOUTP 09:10
PROVIDERS: Referring Provider Advanced Practice Midwife; Visit Provider Advanced Practice Midwife
DX: E86.0 Dehydration (principal)
CPT/HCPCS: 96365; 96375; 96372; A4216; J2405

== ENCOUNTER 2023-08-29 14:13 | Outpatient (CLI) | payer OTHER, BC, SELFPAY ==
--- OUTSIDE RECORDS SUMMARY | 2023-08-29 14:40 | XMS RPT_ITS | CCD ---
Author Name Unknown Address [address] [facility] [address] [place] [address] Organization [facility] Care Team Providers Care Abalone Fisherman Name Role Phone Pending Provider Unavailable Unavailable Unavailable Unavailable PHYSICIAN, NONE Primary Care Physician Unavailab le Unavailable Primary Care Provider UnavailKAYCEE Grimes Primary Care Physician Gisele Diego MD Primary Care Provider [phone] Kaycee Iglesias MD Primary Care Provider [phone] RINKU MANUEL, ANNA Primary Care Physician Fernanda [...] Drug Class(es) Dates Sig (Normalized) Sig (Original) [id number] 200 actuat albuterol 0.09 mg/actuat metered dose [...] 69.67 kg Alicja Velez APRN.CNM Work Phone: [facility] 05-30-2023 14:35-0400 Diastolic blood pressure 64 mm[Hg] Alicja Velez APRN.CNM Work Phone: [facility] 05-30-2023 14:35-0400 Systolic blood pressure 100 mm[Hg] Alicja Velez APRN.CNM Work Phone: [facility] 10-11-2022 08:56-0400 Body height 160 cm Maggi White APRN.CNP Work Phone: [facility] 10-11-2022 08:56-0400 Body weight 58.97 kg Maggi White APRN.CNP Work Phone: [facility] 10-11-2022 08:56-0400 Diastolic blood pressure 70 mm[Hg] Maggi White APRN.TOOL BUILDER Work Phone: [facility] 10-11-2022 08:56-0400 Systolic blood pressure 114 mm[Hg] Maggi White SUPPORT TEACHER.TOOL BUILDER Work Phone: [facility] 08-29-2022 13:54-0500 Body weight 59.88 kg Maggi White APRN.TOOL BUILDER Work Phone: [facility] 08-29-2022 13:54-0500 Diastolic blood pressure 58 mm[Hg] Maggi White APRN.TOOL BUILDER Work Phone: [facility] 08-29-2022 13:54-0500 Systolic blood pressure 100 mm[Hg] Maggi White SUPPORT TEACHER.TOOL BUILDER Work Phone: [facility] 08-02-2022 11:14-0500 Body weight 60.33 kg Maggi White APRN.TOOL BUILDER Work Phone: [facility] 08-02-2022 11:14-0500 Diastolic blood pressure 52 mm[Hg] Maggi White APRN.TOOL BUILDER Work Phone: [facility] 08-02-2022 11:14-0500 Systolic blood pressure 96 mm[Hg] Maggi White APRN.TOOL BUILDER Work Phone: [facility] 06-27-2022 08:17-0500 Body temperature 98.91 [degF] Becky Grewal APRN.TOOL BUILDER Work Phone: [facility] 06-27-2022 08:17-0500 Body weight 58.97 kg Becky Grewal APRN.TOOL BUILDER Work Phone: [facility] 06-27-2022 08:17-0500 Diastolic blood pressure 72 mm[Hg] Becky Grewal APRN.TOOL BUILDER Work Phone: [facility] 06-27-2022 08:17-0500 Heart rate 92 /min Becky Grewal APRN.TOOL BUILDER Work Phone: [facility] 06-27-2022 08:17-0500 Respiratory rate 18 /min Becky Grewal APRN.TOOL BUILDER Work Phone: [facility] 06-27-2022 08:17-0500 SaO2% (BldA) [Mass fraction] 97 % Becky Grewal APRN.TOOL BUILDER Work Phone: [facility] 06-27-2022 08:17-0500 Systolic blood pressure 126 mm[Hg] Becky Grewal APRN.TOOL BUILDER Work Phone: [facility] 03-07-2022 06:55-0400 Body weight 61.78 kg Maggi White APRN.TOOL BUILDER Work Phone: [facility] 03-07-2022 06:55-0400 Diastolic blood pressure 60 mm[Hg] Maggi White APRN.TOOL BUILDER Work Phone: [facility] 03-07-2022 06:55-0400 Systolic blood pressure 98 mm[Hg] Maggi White APRN.TOOL BUILDER Work Phone: [facility] 10-04-2021 09:43-0500 Body height 154.94 [...] Provider Facility Start: 06-14-2023 End: 06-15-2023 ambulatory [facility] Facility:[facility] Start: 06-08-2023 End: 06-09-2023 ambulatory [facility] Facility:[facility] Start: 06-05-2023 End: 06-06-2023 ambulatory [facility] Facility:[facility] Start: 06-01-2023 End: 06-02-2023 ambulatory [facility] Facility:[facility] Start: 05-30-2023 End: 05-30-2023 ambulatory [facility] Facility:[facility] Start: 05-30-2023 End: 05-30-2023 Patient encounter procedure Alicja Velez ENEDELIA.CNM Work Phone: OB/Gynecology Procedures Date Procedure Procedure Detail Performing Clinician Start: 08-22-2022 Us transvaginal Maggi layton APRN.CNP Work Phone: Start: 06-27-2022 STREP A MOLECULAR (POC) [facility] Provider Start: 03-07-2022 Urine test visual color cmprsn meths Maggi White APRN.TOOL BUILDER Work Phone: Start: 02-28-2022 Echo tthrc r-t 2d w/wom-mode compl spec&colr d Gisele Diego MD Work Phone: None (qualifier value) EMMA ARANGO MD Plan of Treatment Date Care Activity Detail Author Start: 10-05-2031 DTaP/Tdap/Td vaccine (8 - Td or Tdap) DTaP/Tdap/Td vaccine (8 - Td or Tdap) [facility] Start: 10-05-2031 Urine microalbumin profile DTaP,Tdap,Td Vaccine (8 - Td or Tdap) [facility] Start: 10-11-2025 PAP TESTING PAP TESTING [facility] Start: 10-12-2023 CHLAMYDIA SCREENING (18-24) CHLAMYDIA SCREENING (18-24) [facility] Start: 10-12-2023 GC (GONORRHEA) SCREENING (18-24) GC (GONORRHEA) SCREENING (18-24) [facility] Start: 08-22-2023 Urine microalbumin profile [facility] Start: 03-31-2023 Influenza vaccination Influenza Vaccine (#1) [facility] Start: 2022 PAP TESTING PAP TESTING [facility] Start: 08-02-2022 End: 08-02-2023 PELVIC US WHI PELVIC US WHI Anc Imaging Routine Dysmenorrhea Pain due to intrauterine contraceptive device (IUD), initial encounter (HCC) Expected: 08/02/2022, Expires: 08/02/2023 [facility] Work Phone: Immunizations Immunization Date Immunization Notes Care Provider Fa cility 10-04-2021 tetanus toxoid, redu beryl diphtheria toxoid, and acellular pertussis vaccine, adsorbed; Translations: [Tdap] Clarke Garcia MD Work Phone: [facility] Work Phone: Payers Date Payer Category Payer Private Health Insurance [id number] LIANG POS [id number] 2023-Present [phone] [address] [place] [address] POS [id number] 2023 Private Health Insurance [id number] 2022 Medicaid [id number] 2021 Unknown [id number] 2020 Medicaid [id number] 2020 Unknown [id number] 2001 Unknown [id number] 2001 Unknown [id number] 2001 Unknown [id number] 27 Unknown [facility] Social History Date Type Detail Facility Never smoker [facility] Sex Assigned At Female [facility] Tobacco smoking status TXIS Tobacco smoking consumption unknown [facility] Start: 2001 Sex Assigned At Not on file [facility] Work Phone: Start: 05-11-2021 End: 03-07-2022 Never smoked tobacco (finding) [facility] History of tobacco use Passive smoker [facility] Work Phone: Start: 03-07-2022 Tobacco use and exposure Smokeless tobacco non-user [facility] Work Phone: Start: 03-07-2022 End: 08-02-2022 Alcohol intake Current non-drinker of alcohol (finding) [facility] Start: 03-07-2022 Tobacco Comment mother smokes inside [facility] Start: 02-25-2022 End: 06-27-2022 Exposure to SARS-CoV-2 (event) Not sure [facility] Work Phone: Start: 08-22-2022 End: 10-11-2022 History of Social function [facility] Start: 08-22-2022 End: 10-11-2022 Tobacco use panel [facility] National Score (1-100), lower number is lower risk 56 [facility] Clinical Notes 05-11-2021 to 05-30-2023 Alicja Velez APRN.CNM - 05/30/2023 2:31 PM EDTTelephone Encounter - Arely Akins RN - 05/30/2023 10:24 AM EDTTelephone Encounter - Arely Akins RN - 05/30/2023 10:24 AM EDT Note Date & Type Note Facility 05-30-2023 Note HNO ID: [id number] Author: Alicja Velez APRN.CNM Service: ? Author Type: Toll Repairer Central Office Type: Progress Notes Filed: 05/30/2023 3:13 PM Note Text: Makeda Pete is a 22 year old female who presents with boyfriend for follow up visit LMP was 04/05/23. Patient had positive test and was seen at [facility]. US completed on 05/22/23 that stated [...] L0 SAB0 IAB0 Ectopic0 Multiple0 Live Births0 [employer]razzo Tile Maker History LMP: 09/21/2022, Recent Age at Menarche: 13 Age at First : Age at Menopause: Terrazzo Tile Maker History Comments: Sexual Activity: Yes; Male; Nuvaring [...] vitamin - RTO as needed Alicja Velez APRN.[facility] 05-30-2023 History of Presen t illness Narrative Makeda Pete is a 22 year old female who presents with boyfriend for follow up visit LMP was 04/05/23. Patient had positive test and was seen at [facility]. US completed on 05/22/23 that stated [...] L0 SAB0 IAB0 Ectopic0 Multiple0 Live Births0 [employer]razzo Tile Maker History LMP: 09/21/2022, Recent Age at Menarche: 13 Age at First : Age at Menopause: Terrazzo Tile Maker History Comments: Sexual Activity: Yes; Male; Nuvaring [...] Alicja Velez APRN.CNM documented in this encounter [facility] 05-30-2023 Miscellaneous Notes Formattin g [...] Alicja Velez APRN.CNM documented in this encounter [facility] 05-29-2023 Miscellaneous Notes Formattin g of this note might be different from the original. Patient did not go to lab on Monday. Called patient and she will go today. Arely Akins RN Patient called and appointment scheduled for Monday. Patient will get repeat HCG drawn on Monday. Keep phone note open for HCG results. Shannon Lora RN Patient seen at [facility] tonight in ED for vaginal spotting. Patient [...] Alicja Velez APRN.CNM documented in this encounter [facility] 05-25-2023 Miscellaneous Notes Formattin g of this note might be different from the original. Pt notified via [employer]. Will await further response from pt. Sylvia Driscoll LPN Please just have patient monitor at home. Review bleeding precautions. Keep scheduled appointment. Alicja Velez APRN.CNM LMP 04/05/23 7w1d Patient calling c/o spotting x3 days. Notices mostly only with wiping. She did have u/s done on 05/22 at [facility] and bleeding started after that. She was told she was measuring 5w1d that day though. No cramping, pain or other concerns. NOB scheduled with 06/05. Please advise. Arely Akins RN documented in this encounter [facility] 10-11-2022 Note HNO ID: [id number] Author: Maggi White APRN.LIU Service: ? Author Type: Nurse Practitioner Type: Progress Notes Filed: 10/11/2022 9:23 AM Note Text: Tap Out Operator offered:Patient maxine De Jesus Is a 22 [...] L0 SAB0 IAB0 Ectopic0 Multiple0 Live Births0 Terrazzo Tile Maker History LMP: 08/27/2022, IUD Age at Menarche: Age at First : Age at Menopause: Terrazzo Tile Maker History Comments: Sexual Activity: Yes; No partner [...] external genitalia normal, normal Bartholin's glands, urethra, Pinetown's glands, no vulvar lesions, no cervical lesions, [...] or sooner as needed Maggi White APRN.CNP [facility] 10-11-2022 Instructions Maggi White APRN.CNP - 10/11/2022 9:07 AM EDT Check on BRCA testing of mom documented in this encounter [facility] 10-11-2022 History of Presen t illness Narrative Tap Out Operator offered:Patient maxine De Jesus Is a 22 [...] L0 SAB0 IAB0 Ectopic0 Multiple0 Live Births0 Terrazzo Tile Maker History LMP: 08/27/2022, IUD Age at Menarche: Age at First : Age at Menopause: Terrazzo Tile Maker History Comments: Sexual Activity: Yes; No partner [...] external genitalia normal, normal Bartholin's glands, urethra, Pinetown's glands, no vulvar lesions, no cervical lesions, [...] Maggi White APRN.LIU documented in this encounter [facility] 08-29-2022 Note HNO ID: [id number] Author: Maggi White APRN.CNP Service: ? Author Type: Nurse Practitioner Type: Progress Notes Filed: 08/29/2022 2:38 PM Note Text: Tap Out Operator offered: Patient declines. Makeda presents for removal [...] well. Contraception plans: Numineing Maggi White APRN.CNP [facility] 08-29-2022 History of Presen t illness Narrative Tap Out Operator offered: Patient declines. Makeda presents for removal [...] Aida White APRN.CNP documented in this encounter [facility] 08-25-2022 Miscellaneous Notes Formattin g [...] Sylvia Driscoll LPN documented in this encounter [facility] 08-22-2022 Note HNO ID: [id number] Author: Teresa Nash RDMS Service: ? Author Type: Rnfa Type: Progress Notes Filed: 08/22/2022 9:53 AM [...] Nash RDMS August 22, 2022 9:53 AM [facility] 08-22-2022 History of Presen t illness [...] 2022 9:53 AM documented in this encounter [facility] 08-12-2022 Miscellaneous Notes Formattin g [...] Arely Akins RN documented in this encounter [facility] 08-02-2022 Note HNO ID: [id number] Author: Maggi White APRN.TOOL BUILDER Service: ? Author Type: Nurse Practitioner Type: [...] L0 SAB0 IAB0 Ectopic0 Multiple0 Live Births0 Terrazzo Tile Maker History LMP: 12/23/2021, IUD Age at Menarche: Age at First : Age at Menopause: Terrazzo Tile Maker History Comments: Sexual Activity: Yes; No partner [...] by INTRAUTERINE route as directed. LOT # [id number] EXP 12/27/21 Sylvia Americo WEB DESIGN INTERN No current facility-administered medications for this visit. [...] which included preparing to see the patient, cepv-rm-onak patient care, completing clinical documentation, obtaining and/or reviewing separately obtained history, performing a medically appropriate examination, counseling and educating the patient/family/caregiver, and ordering medications, tests, or procedures. [facility] 08-02-2022 Instructions Maggi White APRN.LIU - 08/02/2022 11:34 AM EST Ibuprofen 600 mg every 6 hours OR Ibuprofen 800 mg every 8 hours OR Aleve 440-500 mg every 12 hours and heat. documented in this encounter [facility] 08-02-2022 History of Presen t [...] L0 SAB0 IAB0 Ectopic0 Multiple0 Live Births0 Terrazzo Tile Maker History LMP: 12/23/2021, IUD Age at Menarche: Age at First : Age at Menopause: Terrazzo Tile Maker History Comments: Sexual Activity: Yes; No partner [...] by INTRAUTERINE route as directed. LOT # [id number] EXP 12/27/21 Sylvia Driscoll LPN No current [...] results. Follow- up as needed. Maggi White APRN.TOOL BUILDER I spent a total of 20 minutes on the date of the service which included preparing to see the patient, thzh-[id number]-yilx patient care, completing clinical documentation, obtaining and/or reviewing separately obtained history, performing a medically appropriate examination, counseling and educating the patient/family/caregiver, and ordering medications, tests, or procedures. documented in this encounter [facility] 06-27-2022 Note HNO ID: [id number] Author: Becky Grewal APRN.LIU Service: ? Author [...] by INTRAUTERINE route as directed. LOT # [id number] EXP 12/27/21 Sylvia Driscoll LPN PROAIR HFA [...] Patient agreeable to treatment plan. Becky Grewal APRN.[facility] 06-27-2022 History of Presen t illness [...] by INTRAUTERINE route as directed. LOT # [id number] EXP 12/27/21 Sylvia Driscoll LPN PROAIR HFA [...] Becky Grewal APRN.LIU documented in this encounter [facility] 03-07-2022 History of Presen t [...] OB History No obstetric history on file. Terrazzo Tile Maker History LMP: 12/23/2021, IUD Age at Menarche: Age at First : Age at Menopause: Terrazzo Tile Maker History Comments: Sexual Activity: Yes; No partner [...] by INTRAUTERINE route as directed. LOT # [id number] EXP 12/27/21 Sylvia Driscoll CANDACE No current facility-administered medications for this visit. Allergies As of Date: 03/07/2022 (No Known Allergies) Fully Assessed 03/07/2022 REVIEW OF SYSTEMS Allergies and current medication updated:Yes EXAM: Wt 136 lb 3.2 oz (61.8kg) LMP 12/23/2021 GENERAL: pleasant, female in no apparent distress CHEST: Normal inspiratory effort PELVIC: external genitalia normal, normal Bartholin's glands, urethra, Pinetown's glands, no vulvar lesions, no cervical lesions, [...] which included preparing to see the patient, rrek-[id number]-mzcq patient care, completing clinical documentation, obtaining and/or reviewing separately obtained history, performing a medically appropriate examination, counseling and educating the patient/family/caregiver, and ordering medications, tests, or procedures Maggi White APRN.LIU documented in this encounter [facility] 10-04-2021 History of Presen t [...] or bleeding from the nose or ears [phone] [employer]. [address] [place] [address]. All rights reserved. This information is not intended as a substitute for professional medical care. Always follow your healthcare professional's instructions. Follow Up Care 05/11/2021 09:06:02 With:MD KAYCEE IGLESIAS Address: [facility] [address] [phone] [phone] When:2-4 days [facility] Evaluation + Plan note No data available for this section [facility] Evaluation + Plan note Future Appointments Appointment Date:07/11/2022 09:00:00 AM Scheduled Provider:FERNANDA FOSTER Location:[facility] Appointment Type:[facility] documented in this encounter [facility] Work Phone: Evaluation note* Diagnosis Missed menses- Primary Absence of menstruation IUD check up Surveillance of previously prescribed intrauterine contraceptive device [facility]* Diagnosis Rhinosinusitis- Primary Unspecified sinusitis (chronic) Sore throat Acute pharyngitis [facility] Diagnosis Pain due to intrauterine contraceptive device (IUD), initial encounter ([facility] Primary Dysmenorrhea [facility] Diagnosis Pain due to intrauterine contraceptive device (IUD), initial encounter ([facility])- Primary Dysmenorrhea documented in this encounter [facility] note* Diagnosis Pain due to intrauterine contraceptive device (IUD), initial encounter ([facility])- Primary documented in this encounter [facility] note* Diagnosis Encounter for IUD removal- Primary Encounter for removal of intrauterine contraceptive device Encounter for initial management of nuvaring General counseling for initiation of other contraceptive measures documented in this encounter [facility] note* Diagnosis Encounter for gynecological examination (general) (routine) without abnormal findings- Primary Screening for cervical cancer Screening for malignant neoplasm of the cervix Encounter for screening for human papillomavirus (HPV) Special screening examination for human papillomavirus (HPV) Screen for STD (sexually transmitted disease) Screening examination for venereal disease documented in this encounter [facility] note* Diagnosis Spotting in - Primary Spotting complicating , unspecified as to episode of care or not applicable documented in this encounter [facility] note* Diagnosis Spontaneous miscarriage- Primary Unspecified spontaneous without mention of complication documented in this encounter [facility] note* Diagnosis Pain due to intrauterine contraceptive device (IUD), initial encounter (HCC) Dysmenorrhea documented in this encounter [facility] Discharge instructions No data available for this section [facility] Progress note No data available for this section [facility] Reason for referral (narrative)* Diagnostic Procedure Only (Routine) - Authorized Specialty Diagnoses / Procedures Referred By Kate reeves [facility] Diagnoses Dysmenorrhea Pain due to intrauterine contraceptive device (IUD), initial encounter (HCC) Procedures PELVIC US WHI US PELVIC NONOBSTETRIC REAL-TIME IMAGE COMPLETE Maggi White APRN.CNP [address] [place] [address] [facility] [address] [place] [address] Referral ID Status Reason Start Date Expiration Date Visits Requested Visits Authorized [id number] Authorized Auto-Generat ed Referral 08/02/2022 08/02/2023 [facility] Diagnostic Procedure Only (Routine) - Authorized Specialty Diagnoses / Procedures Referred By Kate reeves Referred To Contact [facility] Diagnoses Pain due to intrauterine contraceptive device (IUD), initial encounter (HCC) Dysmenorrhea Procedures US FEMALE PELVIS TRANSVAG US TRANSVAGINAL Maggi White APRN.CNP [address] [place] [address] [facility] Referral ID Status Reason Start Date Expiration Date Visits Requested Visits Authorized [id number] Authorized Auto-Generat ed Referral 08/12/2022 09/11/[address] [facility] for referral (narrative)* Outpatient Procedure (Routine) - Authorized Specialty Diagnoses / Procedures Referred By Kate reeves Referred To Contact [facility] Diagnoses Pain due to intrauterine contraceptive device (IUD), initial encounter (HCC) Procedures REMOVE INTRAUTERINE DEVICE REMOVE INTRAUTERINE DEVICE Maggi White APRN.CNP [address] [place] [address] [facility] [address] [place] [address] Referral ID Status Reason Start Date Expiration Date Visits Requested Visits Authorized [id number] Authorized Auto-Generat ed Referral 08/25/2022 08/25/[address] [facility] for referral (narrative)* Diagnostic Procedure Only (Routine) - Closed Specialty Diagnoses / Procedures Referred By Kate reeves Referred To Contact [facility] Diagnoses Pain due to intrauterine contraceptive device (IUD), initial encounter (HCC) Dysmenorrhea Procedures US FEMALE PELVIS TRANSVAG US TRANSVAGINAL Maggi White APRN.CNP [address] [place] [address] [place] [address] Referral ID Status Reason Start Date Expiration Date V isits Requested Visits Authorized [id number] Closed Auto-Generate d Referral 08/12/2022 09/11/2023 1 1 [facility] Summary Purpose Family History No Family [...] DATE CREATED AUTHOR AUTHOR'S ORGANIZ ATION 10/13/2021 [facility] ([place] DATE CREATED AUTHOR AUTHOR'S ORGANIZ ATION 03/04/2022 [facility] DATE CREATED AUTHOR AUTHOR'S ORGANIZ ATION 07/20/2022 [facility] DATE CREATED AUTHOR AUTHOR'S ORGANIZ ATION 06/16/2023 [facility] Care Teams (unrecognized sec tion and content) Abalone Fisherman Relationship Specialty Start Date End Date Kaycee Iglesias MD [address] [place], [place] [id number] PCP - General Pediatrics 04/04/14 Abalone Fisherman Relationship Specialty Start Date End Date Fernanda Foster, SUPPORT TEACHER.LIU PCP - General 06/27/22 Abalone Fisherman Relationship Specialty Start Date End Date Fernanda Foster, SUPPORT TEACHER.TOOL BUILDER PCP - General 06/27/22 Abalone Fisherman Relationship Specialty Start Date End Date Fernanda Foster, SUPPORT TEACHER.TOOL BUILDER PCP - General 06/27/22 Abalone Fisherman Relationship Specialty Start Date End Date Fernanda Foster, SUPPORT TEACHER.TOOL BUILDER PCP - General 06/27/22 Abalone Fisherman Relationship Specialty Start Date End Date Fernanda Foster, SUPPORT TEACHER.TOOL BUILDER PCP - General 06/27/22 Abalone Fisherman Relationship Specialty Start Date End Date Fernanda Foster, SUPPORT TEACHER.TOOL BUILDER PCP - General 06/27/22 Abalone Fisherman Relationship Specialty Start Date End Date Fernanda Foster, SUPPORT TEACHER.TOOL BUILDER PCP - General 06/27/22 Abalone Fisherman Relationship Specialty Start Date End Date Fernanda Foster, SUPPORT TEACHER.TOOL BUILDER PCP - General 06/27/22 Abalone Fisherman Relationship Specialty Start Date End Date Ruth AnnFernanda tsang APRN.[facility] - General 06/27/22 Source Comments (unrecognize d section and content) In the event this informatio n is protected by the Federal Confidentiality of Alcohol and Drug Abuse Patient Records regulations: The Federal rules restrict any use of the information to criminally investigate or prosecute any alcohol or drug abuse patient.[facility] the event this information is protected by the Federal Confidentiality of Alcohol and Drug Abuse Patient Records regulations: The Federal rules restrict any use of the information to criminally investigate or prosecute any alcohol or drug abuse patient.[facility] the event this information is protected by the Federal Confidentiality of Alcohol and Drug Abuse Patient Records regulations: The Federal rules restrict any use of the information to criminally investigate or prosecute any alcohol or drug abuse patient.[facility] Center[facility] the event this information is protected by the Federal Confidentiality of Alcohol and Drug Abuse Patient Records regulations: The Federal rules restrict any use of the information to criminally investigate or prosecute any alcohol or drug abuse patient.[facility] the event this information is protected by the Federal Confidentiality of Alcohol and Drug Abuse Patient Records regulations: The Federal rules restrict any use of the information to criminally investigate or prosecute any alcohol or drug abuse patient.[facility] Center[facility] the event this information is protected by the Federal Confidentiality of Alcohol and Drug Abuse Patient Records regulations: The Federal rules restrict any use of the information to criminally investigate or prosecute any alcohol or drug abuse patient.[facility] Center[facility] the event this information is protected by the Federal Confidentiality of Alcohol and Drug Abuse Patient Records regulations: The Federal rules restrict any use of the information to criminally investigate or prosecute any alcohol or drug abuse patient.[facility] the event this information is protected by the Federal Confidentiality of Alcohol and Drug Abuse Patient Records regulations: The Federal rules restrict any use of the information to criminally investigate or prosecute any alcohol or drug abuse patient.[facility] Center[facility] the event this information is protected by the Federal Confidentiality of Alcohol and Drug Abuse Patient Records regulations: The Federal rules restrict any use of the information to criminally investigate or prosecute any alcohol or drug abuse patient.[facility] Center[facility] the event this information is protected by the Federal Confidentiality of Alcohol and Drug Abuse Patient Records regulations: The Federal rules restrict any use of the information to criminally investigate or prosecute any alcohol or drug abuse patient.[facility] Center[facility] the event this information is protected by the Federal Confidentiality of Alcohol and Drug Abuse Patient Records regulations: The Federal rules restrict any use of the information to criminally investigate or prosecute any alcohol or drug abuse patient.[facility] Center[facility] the event this information is protected by the Federal Confidentiality of Alcohol and Drug Abuse Patient Records regulations: The Federal rules restrict any use of the information to criminally investigate or prosecute any alcohol or drug abuse patient.[facility] Center[facility] the event this information is protected by the Federal Confidentiality of Alcohol and Drug Abuse Patient Records regulations: The Federal rules restrict any use of the information to criminally investigate or prosecute any alcohol or drug abuse patient.[facility] Reason for Visit (unrecogniz ed section and content) Reason Comments Nasal Congestion drainage, productive cough, sore throat and headache x over 1 week Reason Comments Discussion Painful cycle withou t the normal flow with IUD Reason Comments Orders Appointment Reason Comments IUD Removal Specialty Diagnoses / Procedures Referred By Contac t Referred To Contact [facility] Diagnoses Pain due to intrauterine contraceptive device (IUD), initial encounter ([facility]) Procedures REMOVE INTRAUTERINE DEVICE REMOVE INTRAUTERINE DEVICE Maggi White APRN.[employer] [address] [place] [address] [facility] [address] [place] [address] Referral ID Status Reason Start Date Expiration Date V isits Requested Visits Authorized [id number] Closed Auto-Generate d Referral 08/25/2022 08/25/2023 1 1 Reason Comments Well Woman Specialty Diagnoses / Procedures Referred By Contac t Referred To Contact [facility] Diagnoses Encounter for annual routine gynecological examination annual exam Procedures WELLNESS EXAMS EST 18-39 YRS est [facility] patient Self Maggi White APRN.[employer] [address] [place] [address] Referral ID Status Reason Start Date Expiration Date V isits Requested Visits Authorized [id number] Closed Financial Clearance Required - Self Pay [...] FEMALE PELVIS TRANSVAG US TRANSVAGINAL Maggi White APRN.[employer] BU[employer]DER [address] [place] [address] [place] [address] Referral ID Status Reason Start Date Expiration Date V isits Requested Visits Authorized [id number] Closed Auto-Generate d Referral 08/12/2022 09/11/2023 1 1 Care Team (unrecognized sect ion and content) Care Team Personnel Name: ANNA DOBBS APRN-TOOL BUILDER Position: P4 Advanced Practice Nurse Member Role: Primary Care Physician Address: Address: [address] [place] [phone]- Care Team Related Persons Name: MARIA ISABEL [...] BE BASED ON THE PRIMARY CLINICAL RECORDS. [employer] provides no warranty or guarantee of the accuracy or completeness of information in this document.
[2023-08-29 14:42] VITALS: BP 114/71; PULSE 86; RESP 16; TEMP 37.3; O2SAT 100; BMI 27.4
[2023-08-29] MEDS: Dextrose 5%-Lactated Ringers 1,000 ML 999 ML IV (14:46)
[2023-08-29] MEDS: 0.9% NaCl Peripheral Flush Adult/Peds IV (14:47)
[2023-08-29] MEDS: Ondansetron 4 MG/2 ML Vial IV (14:47)
[2023-08-29 15:48] VITALS: BP 110/65; PULSE 74
== END 2023-08-29 14:14 | disposition home or self-care (01) ==
LOC: MEDOUTP 14:14
PROVIDERS: Referring Provider Registered Nurse; Visit Provider Registered Nurse
DX: E86.0 Dehydration (principal)
CPT/HCPCS: 96365; 96375; A4216; J2405

== ENCOUNTER 2023-09-13 12:37 | Outpatient (CLI) | payer OTHER, BC, SELFPAY ==
[2023-09-13 12:53] VITALS: BP 120/81; PULSE 84; RESP 16; TEMP 36.4; O2SAT 100
[2023-09-13] MEDS: Ondansetron 4 MG/2 ML Vial IV (13:05)
[2023-09-13] MEDS: Dextrose 5%-Lactated Ringers 1,000 ML 999 ML IV (13:05)
[2023-09-13] MEDS: 0.9% NaCl Peripheral Flush Adult/Peds IV (14:18)
[2023-09-13] MEDS: proMETHazine 25 MG/ML Syringe 12.5 MG IM (14:18)
[2023-09-13 14:23] VITALS: BP 128/78; PULSE 89; RESP 16; TEMP 36.7
== END 2023-09-13 12:38 | disposition home or self-care (01) ==
LOC: MEDOUTP 12:37
PROVIDERS: Referring Provider Advanced Practice Midwife; Visit Provider Advanced Practice Midwife
DX: E86.0 Dehydration (principal)
CPT/HCPCS: 96374; 96361; 96372; A4216; J2405

== ENCOUNTER 2023-09-26 12:21 | Outpatient (CLI) | payer OTHER, BC, SELFPAY ==
[2023-09-26] MEDS: Dextrose 5%-Lactated Ringers 1,000 ML 999 ML IV (12:44)
[2023-09-26] MEDS: Ondansetron 4 MG/2 ML Vial IV (12:48)
[2023-09-26 13:04] VITALS: BP 109/57; PULSE 89; RESP 16; TEMP 36.9; O2SAT 98; BMI 28.1
[2023-09-26 14:04] VITALS: BP 106/62; PULSE 75; RESP 16; TEMP 36.9; O2SAT 99
== END 2023-09-26 12:22 | disposition home or self-care (01) ==
LOC: MEDOUTP 12:22
PROVIDERS: Referring Provider Advanced Practice Midwife; Visit Provider Advanced Practice Midwife
DX: E86.0 Dehydration (principal)
CPT/HCPCS: 96365; 96366; 96375; J2405

== ENCOUNTER → 2023-12-29 | Outpatient (CLI) | payer OTHER, BC, SELFPAY ==
[2023-12-29 14:54] LABS: Absolute Lymphocyte Count 1.15 X10^3/uL (0.83-4.51); Absolute Neutrophil Count 8.6 X10^3/uL (2.0-7.7); Basophil# 0.06 X10^3/uL; Basophil% 0.6 % (0-1); Eosinophil# 0.07 X10^3/uL; Eosinophils% 0.7 % (0-5); Hematocrit 38.4 % (37-47); Hemoglobin 12.7 g/dL (12.0-15.0); Lymphocyte # 1.15 X10^3/ul (0.83-4.51); Lymphocyte % 10.8 % (19-41); Mean Corp Hgb Conc 33.1 g/dL (32-36); Mean Corpuscular Hgb 29.5 pg (27.0-32.0); Mean Corpuscular Volume 89.1 fL (81-99); Mean Platelet Vol. 10.2 fl (6.2-12.0); Monocyte# 0.62 X10^3/uL; Monocyte% 5.8 % (0-10); NRBC Flagged by Analyzer 0 % (0-5); Neutrophil # 8.55 X10^3/uL (2.7-7.7); Neutrophil % 80.4 % (47-70); Platelet Count 254 K/mm3 (150-450); RBC Distribution Width CV 13.9 % (11.6-14.6); Red Blood Count 4.31 M/mm3 (4.2-5.4); White Blood Count 10.6 K/mm3 (4.4-11.0)
[2023-12-29 15:10] LABS: Glucose Challenge Gest 1H 50g 143 mg/dL (70-140)
[2023-12-29 15:47] LABS: HIV - WCH Non-Reactive (Nonreactive); Syphilis Antibodies Non-reactive
== END | disposition home or self-care (01) ==
LOC: LAB 14:35
PROVIDERS: Referring Provider Nurse Practitioner Women's Health; Visit Provider Nurse Practitioner Women's Health
DX: Z34.90 Encounter for supervision of normal pregnancy, unspecified, unspecified trimester (principal)
CPT/HCPCS: 36415; 82950; 85025; 86703; 86780; 86850; 86900; 86901

== ENCOUNTER → 2024-01-04 | Outpatient (CLI) | payer OTHER, BC, SELFPAY ==
[2024-01-04 10:17] LABS: Glucose GTT-Gestation. Fasting 81 mg/dL (<105)
[2024-01-04 11:45] LABS: Glucose GTT-Gestational 1 Hr 194 mg/dL (<190)
[2024-01-04 11:59] LABS: Glucose GTT-Gestational 2 Hr 131 mg/dL (<165)
[2024-01-04 13:52] LABS: Glucose GTT-Gestational 3 Hr 156 L (<145)
== END | disposition home or self-care (01) ==
LOC: LAB 09:25
PROVIDERS: Referring Provider Obstetrics & Gynecology; Visit Provider Obstetrics & Gynecology
DX: O99.810 Abnormal glucose complicating pregnancy (principal); Z3A.00 Weeks of gestation of pregnancy not specified
CPT/HCPCS: 36415; 82951; 82952

== ENCOUNTER 2024-01-22 08:30 | Outpatient (CLI) | payer OTHER, BC, SELFPAY ==
[2024-01-22 08:43] VITALS: PULSE 87; O2SAT 98
[2024-01-22 08:45] VITALS: BP 123/72; PULSE 80
[2024-01-22 08:47] VITALS: RESP 16; TEMP 36.3
[2024-01-22 08:55] VITALS: BMI 29.9
--- NOTE | 2024-01-22 09:22 | OB.TRI.PN ---
Progress Notes Date of Service: 01/22/24 Progress Note: Patient presents for triage evaluation secondary to 8 bpp FHT: 140 Moderate variability reactive no decelerations category I tracing [place]: no regular Contractions Assessment and plan: non reassuring FHT now reassuring 03/09 bpp Reactive NST, reassuring maternal and status patient discharged to home to follow-up as scheduled. See problem list details for additional plan information. Charges/Coding Procedures Urinary/Genital 52xxx-59xxx: 70180-14 non-stress test Interp
== END 2024-01-22 09:35 | disposition home or self-care (01) ==
LOC: WPOUT 08:36 → WP 08:36
PROVIDERS: Referring Provider Obstetrics & Gynecology; Visit Provider Obstetrics & Gynecology
DX: O36.8390 Maternal care for abnormalities of the fetal heart rate or rhythm, unspecified trimester, not applicable or unspecified (principal); Z3A.00 Weeks of gestation of pregnancy not specified
CPT/HCPCS: 59025; 59050; 99221; G0378

== ENCOUNTER 2024-02-02 05:45 | Outpatient (CLI) | payer BC, SELFPAY ==
[2024-02-02 05:51] VITALS: BMI 30.1
[2024-02-02 05:58] VITALS: BP 123/75; PULSE 76; RESP 16; TEMP 36.3
[2024-02-02 06:26] LABS: Bacteria 0 SEEN /hpf (None Seen); Mucous, Urine 0 SEEN /hpf (<or=2+); Red Blood Cells-Urine 0 SEEN /hpf (0-5); White Blood Cells 0 SEEN /hpf (0-5)
[2024-02-02 06:34] LABS: Color, Urine Yellow (Yellow); Glucose, Dipstick Normal (Normal); Ketone-Dipstick Negative (Negative); Leukocyte Esterase-Dipstick Negative /ul (Negative); Nitrite-Dipstick Negative (Negative); Occult Blood-Urine Negative /ul (Negative); Protein-Dipstick Negative (Negative); Specific Gravity, Urine 1.015 (1.002-1.030); Urine Bilirubin Dipstick Negative (Negative); Urine Clarity Clear (Clear); Urine Urobilinogen Normal (Normal)
[2024-02-02 06:48] LABS: Squamous Epithelial Cells - UA 0-5 SEEN /hpf (5-10)
[2024-02-02 06:54] LABS: ROM Internal Control Test YES-OK TO RESULT pt. (Internal QC); ROM Patient Test Negative (Negative); Record Kit Lot#, ROM+ K1866
--- NOTE | 2024-02-02 17:05 | OB.TRI.PN ---
Progress Notes Date of Service: 02/02/24 Progress Note: Patient presents for triage evaluation secondary to thretened PTL 34 weeks FHT: 140 Moderate variability reactive no decelerations category I tracing [place]: irregular Contractions Assessment and plan: threatened PTL Reactive NST, reassuring maternal and status patient discharged to home to follow-up as scheudled. See problem list details for additional plan information. Laboratory Studies: Laboratory Tests 02/02/24 Range/Units 06:10 Urine Color Yellow (Yellow) Urine Clarity Clear (Clear) Urine pH 7.0 (5.0 - 8.0) Ur Specific [place] 1.015 (1.002-1.030) Urine Protein Negative (Negative) mg/dl Urine Glucose (UA) Normal (Normal) mg/dl Urine Ketones Negative (Negative) mg/dl Urine Occult Blood Negative (Negative) /ul Urine Nitrite Negative (Negative) Urine Bilirubin Negative (Negative) mg/dL Urine Urobilinogen Normal (Normal) mg/dl Ur Leukocyte Esterase Negative (Negative) /ul Urine RBC 0 SEEN (0-5) /hpf Urine WBC 0 SEEN (0-5) /hpf Ur Squamous Epith Cells 0-5 SEEN (5-10) /hpf Urine Bacteria 0 SEEN (None Seen) /hpf Urine Mucus 0 SEEN (<or=2+) /hpf Vag Amniotic Fld Detect Negative (Negative) Charges/Coding Procedures Urinary/Genital 52xxx-59xxx: 11948-59 non-stress test Interp
== END 2024-02-02 07:05 | disposition home or self-care (01) ==
LOC: WPOUT 05:47 → WP 05:47
PROVIDERS: Referring Provider Obstetrics & Gynecology; Visit Provider Obstetrics & Gynecology
DX: O47.03 False labor before 37 completed weeks of gestation, third trimester (principal); Z3A.34 34 weeks gestation of pregnancy
CPT/HCPCS: 59025; 59050; 81001; 84112; 99221; G0378

== ENCOUNTER 2024-02-07 16:20 | Inpatient (IN) | payer BC, SELFPAY ==
[2024-02-07 06:42] VITALS: BMI 30.3
[2024-02-07 06:48] VITALS: BP 124/77; PULSE 100; PULSE 96; O2SAT 97
[2024-02-07 07:15] LABS: ROM Internal Control Test YES-OK TO RESULT pt. (Internal QC); ROM Patient Test Negative (Negative); Record Kit Lot#, ROM+ K1866
--- NOTE | 2024-02-07 07:46 | US_ITS ---
STUDY: OBSTETRICAL ULTRASOUND - BIOPHYSICAL PROFILE REASON FOR EXAM: Female, 23 years old variables LMP: June 07, 2023. PRIOR ULTRASOUND: None. TECHNIQUE: Transabdominal TECHNICAL QUALITY: Adequate. FINDINGS: There is a single intrauterine fetus. The fetus is in a cephalic presentation. There is demonstrated cardiac activity with a heart rate of 155 bpm. There is a normal amniotic fluid volume. The largest amniotic fluid pocket measures 3.4 cm. The amniotic fluid index (MAREN) is 8.4 cm. The placenta is posterior in location and is not low lying. There are Grade 3 placental changes. Age by LMP: 35 weeks, 0 days. GURINDER by LMP: . BIOPHYSICAL PROFILE: Breathing Movements (FBM): 0 Gross Body Movements (GBM): 2 Tone (FT): 2 Amniotic Fluid Volume (AFV): 2 TOTAL SCORE: US/Biophysical Prof W/O Non Stres IMPRESSION: biophysical profile of 01/05. Electronically Signed: Camacho Lemus MD at 10:37 EDT ,
[2024-02-07] MEDS: Lactated Ringers 1,000 ML 999 ML IV (07:50)
[2024-02-07 08:10] LABS: Absolute Lymphocyte Count 1.23 X10^3/uL (0.83-4.51); Absolute Neutrophil Count 8.8 X10^3/uL (2.0-7.7); Basophil# 0.05 X10^3/uL; Basophil% 0.4 % (0-1); Eosinophil# 0.12 X10^3/uL; Eosinophils% 1.1 % (0-5); Hemoglobin 11.9 g/dL (12.0-15.0); Lymphocyte # 1.23 X10^3/ul (0.83-4.51); Lymphocyte % 10.9 % (19-41); Mean Corpuscular Hgb 28.9 pg (27.0-32.0); Mean Platelet Vol. 10.4 fl (6.2-12.0); Monocyte# 0.81 X10^3/uL; Monocyte% 7.2 % (0-10); NRBC Flagged by Analyzer 0 % (0-5); Neutrophil # 8.81 X10^3/uL (2.7-7.7); Neutrophil % 78.3 % (47-70); Platelet Count 219 K/mm3 (150-450); RBC Distribution Width CV 13.9 % (11.6-14.6); RBC Distribution Width SD 42.7 fl (35.1-43.9); Red Blood Count 4.12 M/mm3 (4.2-5.4); White Blood Count 11.3 K/mm3 (4.4-11.0)
--- NOTE | 2024-02-07 08:13 | OB.TRI.HP_ITS ---
HPI - General General Date of Admission: 02/07/24 HPI Narrative MAKEDA STEEN, is a 23 F who presents for quesitonable LOF- rom is negtaive but she had 3 variable decels while on the monitor. BPP 8/10. overall no vb good fm only irregular ctx. Maternal Data Information GURINDER Calculator Estimated Delivery Date Method Current WG Current Estimate 03/13/24 Ultrasound #1 35w 0d Other Estimates 03/13/24 Ultrasound #2 35w 0d PFSH PFSH Medical History IBS (irritable bowel syndrome) History of miscarriage, currently Home Medications ?Medication ?Instructions ?Recorded ?Last Taken ?Type fluticasone propionate 44 2 puff inhalation BID 08/11/23 02/01/24 History mcg/actuation HFA aerosol inhaler multivit-min no.71-iron fum 28 1 cap PO DAILY 08/11/23 02/01/24 History mg-folate no.1 1 mg-dha 300 mg capsule (PNV-[place]) promethazine 12.5 mg tablet 12.5 mg PO Q6H PRN nausea and 08/14/23 Unknown Rx vomiting #60 tabs ondansetron 4 mg disintegrating 4 mg PO Q8H PRN nausea and 12/13/23 Unknown Rx tablet vomiting #20 tabs blood sugar diagnostic (Blood #50 ea 01/05/24 Unknown Rx Glucose Test strips) blood-glucose meter (Blood Glucose #1 ea 01/05/24 Unknown Rx Monitoring kit) Allergy/AdvReac Type Severity Reaction Status Date / Time No Known Allergies Allergy Verified 02/07/24 06:43 Family History Mother Breast cancer, Onset Age: 38 Father CAD (coronary artery disease) Surgical History [place] teeth extracted Social History adopted: No household members: spouse current occupational status: employed 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 occupational exposures/hazards: No pets and animals: Yes pets and animals: cat(s) and other details: [place] history of recent travel: No sexually active: Yes Smoking Status: Never smoker alcohol intake: current alcohol intake frequency: holidays/special occasions only details: NOT WHILE substance use type: does not use well-balanced diet: daily or most days caffeine: No eating out: 1-3 times/week during the past year weight has: remained stable what type of physical activity do you participate in: none lalito/cheondoism: None seatbelt use: always do you feel safe at home: Yes additional social history: -JOSE STEEN History 2 Elective abortions Hx Para 0 Spontaneous abortions 1 Hx # Term Pregnancies Ectopic pregnancies Hx # Pregnancies Multiple births # of living children 0 Past Pregnancies Del. Date Name GA/Weeks Outcome Route Bth Weight Infant Gen Labor Lgth Anesthesia Del Locatn Provider FOB 05/26/23 5 spontaneous Visit Details Expected Delivery Route/Plan Labor Preferences- CB/BF classes: encouraged labor support person: Jose labor intervention preferences: [] pain management options preferred: limited if possible cut cord/dad catch: yes : yes PP control planned: discussed discussed possible routes of delivery and associated risks: [] special requests: [] Plans Covid status: [] Flu vaccine: declined Tdap vaccine:given Rhogam: na LARC form signed: yes Problem list reviewed and updated with the most current plan of care details and appropriate orders placed. Relevant counseling for the gestational age provided. Continue routine care and follow up unless otherwise noted in visit notes/problem list details OB Flowsheet Initial Weight: Not Recorded Date -?-?-?-?-?-?-?-?-?-?-?-?- EGA Weight BP Urine Prot -?-?-?-?-?-?-?-?-?-?-?-?- Glucose FHR FuHt Pres Dilation -?-?-?-?-?-?-?-?-?-?-?-?- Effaced St Visit Note 08/14/23 -?-?-?-?-?-?-?-?-?-?-?-?- 9w 5d 147 lb 4 oz 132/79 -?-?-?-?-?-?-?-?-?-?-?-?- 189 -?-?-?-?-?-?-?-?-?-?-?-?- JV- CRL consiste nt with early us. desires NIPT and carrier testing. 08/25/23 -?-?-?-?-?-?-?-?-?-?-?-?- 11w 2d 154 lb 2 oz 130/84 -?-?-?-?-?-?-?-?-?-?-?-?- 180 -?-?-?-?-?-?-?-?-?-?-?-?- Kw- no vb/crampi ng. FHT with handheld US today. work in for n/v/dehydration. vomiting 10+ times daily and unable to keep fluids down. To infusion center for IV hydration. 09/12/23 -?-?-?-?-?-?-?-?-?-?-?-?- 13w 6d 153 lb 6 oz 117/75 Nega tive -?-?-?-?-?-?-?-?-?-?-?-?- Negative 155 -?-?-?-?-?-?-?-?-?-?-?-?- KW- no vb/crampi ng. still having n/v. not vomiting every day now but still having more bad days than good. another order for IV hydration placed. 10/09/23 -?-?-?-?-?-?-?-?-?-?-?-?- 17w 5d 154 lb 2 oz 128/82 Nega tive -?-?-?-?-?-?-?-?-?-?-?-?- Negative 162 -?-?-?-?-?-?-?-?-?-?-?-?- MH-No VB, LOF. N o flutters yet. MFM US ordered 11/07/23 -?-?-?-?-?-?-?-?-?-?-?-?- 21w 6d 156 lb 8 oz 111/78 Nega tive -?-?-?-?-?-?-?-?-?-?-?-?- Negative 150 -?-?-?-?-?-?-?-?-?-?-?-?- SM- no vb lof go od fm n oregualr ctx declined afp testing, growth us q 4 weeks planned. 12/05/23 -?-?-?-?-?-?-?-?-?-?-?-?- 25w 6d 160 lb 6 oz 122/70 Nega tive -?-?-?-?-?-?-?-?-?-?-?-?- Negative 154 26 -?-?-?-?-?-?-?-?-?-?-?-?- MH-No VB, LOF. G ood FM. Has all growth US scheduled. Larc. 12/29/23 -?-?-?-?--?-?-?-?-?-?-?-?- 29w 2d 163 lb 2 oz 125/81 Nega tive -?-?-?-?-?-?-?-?-?-?-?-?- Negative 140 -?-?-?-?-?-?-?-?-?-?-?-?- SM- nst today, 3 hour gtt ordered rhogam given 01/04/24 -?-?-?-?-?-?-?-?-?-?-?-?- 30w 1d 164 lb 6 oz 117/74 Nega tive -?-?-?-?-?-?-?-?-?-?-?-?- Negative 145 29 -?-?-?-?-?-?-?-?-?-?-?-?- KW- NSt today. 3 hour gct after appt. no concerns has growth on monday01/12/24 -?-?-?-?-?-?-?-?-?-?-?-?- 31w 2d 164 lb 6 oz 120/79 Nega tive -?-?-?-?-?-?-?-?-?-?-?-?- Negative 140 -?-?-?-?-?-?-?-?-?-?-?-?- JV- fasting gluc ose levels are 80's , highest pp is 120. NST reactive 01/18/24 -?-?-?-?-?-?-?-?-?-?-?-?- 32w 1d 164 lb 8 oz 122/60 Nega tive -?-?-?-?-?-?-?-?-?-?-?-?- Negative 140 29 -?-?-?-?-?-?-?-?-?-?-?-?- MH-No VB, LOF. G ood FM. Reactive NST. All FBS <95, just 1 2 hr >120 and had dessert. Daily kick cts are good. Has MFM growth US 01/2101/25/24 -?-?-?-?-?-?-?-?-?-?-?-?- 33w 1d 167 lb 6.4 oz 125/75 Ne gative -?-?-?-?-?-?-?-?-?-?-?-?- Negative 130 -?-?-?-?-?-?-?-?-?-?-?-?- JV- nst reactive today. growth scan from monday in chart. AC <7th% and bpp was 01/07. 02/02/24 -?-?-?-?-?-?-?-?-?-?-?-?- 34w 2d 164 lb 4 oz 106/70 Nega tive -?-?-?-?-?-?-?-?-?-?-?-?- Negative 130 -?-?-?-?-?-?-?-?-?-?-?-?- SM- [facility], no reuglar ctx on monitor. no vb lof ROS Constitutional Constitutional: Reports systems reviewed and no addt'l complaints, except as documented and as per HPI ENT HEENT: Reports systems reviewed and no addt'l complaints, except as documented Cardiovascular Cardiovascular: Reports systems reviewed and no addt'l complaints, except as documented Respiratory/Chest Respiratory/Chest: Reports systems reviewed and no addt'l complaints, except as documented Gastrointestinal Gastrointestinal: Reports as per HPI Genitourinary Genitourinary: Reports as per HPI Musculoskeletal Musculoskeletal: Reports systems reviewed and no addt'l complaints, except as documented Integumentary Integumentary: Reports systems reviewed and no addt'l complaints, except as documented Neurologic Neurologic: Reports systems reviewed and no addt'l complaints, except as documented Physical Exam Const alert, oriented x3 and no apparent distress HEENT Head and Scalp: normocephalic and atraumatic Neck full ROM and no lymphadenopathy Chest inspection of chest normal Resp normal respiratory effort GI GI Narrative: gravid, abdomen nontender, AGA Manual OB Exam: dilated, effaced and station NST FHR Rate Baby A Baseline: 140 Variability:: Moderate Accelerations:: 15 x 15 Decelerations:: None NST Reactive:: Yes FHR Category:: Category I Uterine Activity:: regular q 2-4 Assessment & Plan (1) Gestational diabetes mellitus (GDM) affecting , antepartum: COMMENT: testing 4x daily. growth us at 36 weeks (2) IUGR (intrauterine growth restriction): COMMENT: MFM consult planned. Growth US Q2w, weekly unbilical artery doppler. Twice weekly testing. Daily kick counts. (3) Velamentous insertion of umbilical cord: QUALIFIERS: Trimester: third trimester Qualified Code(s): O43.123 - Velamentous insertion of umbilical cord, third trimester COMMENT: Growth US Q4wk and NSTs weekly at 32wk. (4) Rh negative state in antepartum period: COMMENT: Rhogam @ 28 weeks & PRN Bleeding(Pt had Rhogam 04/2023 at time of miscarriage) (5) Anxiety and depression: COMMENT: no meds. Stable. Has celexa Rx but not taking (6) Asthma: COMMENT: environmental induced (7) Supervision of high risk , antepartum: COMMENT: [id number], GURINDER 03/13/24, girl Aletha Jose (8) : QUALIFIERS: Weeks of gestation: 34 weeks Qualified Code(s): Z3A.34 - 34 weeks gestation of COMMENT: NIPT LR, carrier neg. , declined afp testing. anatomy nl (9) Variable heart rate decelerations, antepartum: PLAN: Plan admit for monitoring overnight, repeat BPP tomorrow. GDM monitor BS and diabetic diet Charges/Coding Multi Select Codes Visit Charges Office Visit/Consults: 60304 OV L3 Est 20min Urinary/Genital Urinary/Genital CPT Codes: 10008-19 non-stress test Interp
[2024-02-07 10:20] VITALS: BP 109/73; PULSE 87; RESP 16; TEMP 36.6
[2024-02-07 11:52] VITALS: BP 105/63; PULSE 89; RESP 16; TEMP 36.4
[2024-02-07 15:06] VITALS: BP 125/85; PULSE 101; RESP 16; TEMP 36.7
[2024-02-07 15:34] LABS: Bedside Glucose 84 mg/dL (74-106)
[2024-02-07 18:48] LABS: Bedside Glucose 90 mg/dL (74-106)
[2024-02-07 19:45] VITALS: BP 106/60; PULSE 99; RESP 16; TEMP 36.6
[2024-02-07] MEDS: 0.9% Saline Lock 10 ML Syringe IV (19:45)
[2024-02-07 22:27] LABS: Bedside Glucose 83 mg/dL (74-106)
[2024-02-07 23:11] VITALS: BP 97/52; PULSE 74; RESP 16; TEMP 36.7
[2024-02-08] VITALS (39 sets, daily range): BP systolic 91–129; BP diastolic 60–81; PULSE 56–100; RESP 14–20; TEMP 36.4–37.2; O2SAT 93–100
--- NOTE | 2024-02-08 06:00 | US_ITS ---
STUDY: OBSTETRICAL ULTRASOUND - BIOPHYSICAL PROFILE REASON FOR EXAM: Female, 23 years old decelerations and previous BPP 01/05 for breathing LMP: June 07, 2023. PRIOR ULTRASOUND: Comparison is made with prior study dated February 07, 2024. TECHNIQUE: Transabdominal TECHNICAL QUALITY: Adequate. FINDINGS: There is a single intrauterine fetus. The fetus is in a cephalic presentation. There is demonstrated cardiac activity with a heart rate of 147 bpm. There is a normal amniotic fluid volume. The largest amniotic fluid pocket measures 2.7 cm. The amniotic fluid index (MAREN) is 9.0 cm. The placenta is posterior and right lateral in location and is not low lying. There are Grade 3 placental changes. Age by LMP: 35 weeks, 1 days. GURINDER by LMP: March 13, 2024. BIOPHYSICAL PROFILE: Breathing Movements (FBM): 0 Gross Body Movements (GBM): 2 Tone (FT): 2 Amniotic Fluid Volume (AFV): 2 TOTAL SCORE: US/Biophysical Prof W/O Non Stres IMPRESSION: biophysical profile of 01/05. No continuous breathing was noted. Electronically Signed: Camacho Lemus MD at 8:53 EDT ,
[2024-02-08 06:28] LABS: Bedside Glucose 76 mg/dL (74-106)
[2024-02-08] MEDS: Lactated Ringers 1,000 ML 999 ML IV (08:49)
[2024-02-08] MEDS: 0.9% Saline Lock 10 ML Syringe IV ×2 (08:49→18:48)
[2024-02-08] MEDS: Dextrose 10%-Water 250 ML 999 ML IV (09:23)
[2024-02-08] MEDS: Acetaminophen 500 MG Tablet 1000 MG PO ×3 (09:24→20:04)
[2024-02-08] MEDS: Sodium Citrate/Citric Acid 30 ML UDC PO (09:25)
--- NOTE | 2024-02-08 09:29 | HP.PCM.OB_ITS ---
HPI - General General Date of Admission: 02/08/24 HPI Narrative MAKEDA STEEN, is a 23 F who presents ovenright still having intermittent variable and spontaneous or late decels. 01/05 and 01/07 or 03/09 bpp- equivocal nst due to decels. no vb lof admits good fm irregular ctx Maternal Data Information GURINDER Calculator Estimated Delivery Date Method Current WG Current Estimate 03/13/24 Ultrasound #1 35w 1d Other Estimates 03/13/24 Ultrasound #2 35w 1d PFSH PFS Medical History (Updated 02/08/24 @ 09:[address] Prachi Freitas MD) Asthma Depression Anxiety Gestational diabetes IBS (irritable bowel syndrome) History of miscarriage, currently Home Medications ?Medication ?Instructions ?Recorded ?Last Taken ?Type fluticasone propionate 44 2 puff inhalation BID 08/11/23 02/01/24 History mcg/actuation HFA aerosol inhaler multivit-min no.71-iron fum 28 1 cap PO DAILY 08/11/23 02/01/24 History mg-folate no.1 1 mg-dha 300 mg capsule ([facility]-[place]) promethazine 12.5 mg tablet 12.5 mg PO Q6H PRN nausea and 08/14/23 Unknown Rx vomiting #60 tabs ondansetron 4 mg disintegrating 4 mg PO Q8H PRN nausea and 12/13/23 Unknown Rx tablet vomiting #20 tabs blood sugar diagnostic (Blood #50 ea 01/05/24 Unknown Rx Glucose Test strips) blood-glucose meter (Blood Glucose #1 ea 01/05/24 Unknown Rx Monitoring kit) Allergy/AdvReac Type Severity Reaction Status Date / Time No Known Allergies Allergy Verified 02/07/24 06:43 Family History Mother Breast cancer, Onset Age: 38 Father CAD (coronary artery disease) Surgical History [place] teeth extracted Social History adopted: No household members: spouse current occupational status: employed 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 occupational exposures/hazards: No pets and animals: Yes pets and animals: cat(s) and other details: [place] history of recent travel: No sexually active: Yes Smoking Status: Never smoker alcohol intake: current alcohol intake frequency: holidays/special occasions only details: NOT WHILE substance use type: does not use well-balanced diet: daily or most days caffeine: No eating out: 1-3 times/week during the past year weight has: remained stable what type of physical activity do you participate in: none lalito/mandaen: None seatbelt use: always do you feel safe at home: Yes additional social history: -JOSE STEEN History 2 Elective abortions Hx Para 0 Spontaneous abortions 1 Hx # Term Pregnancies Ectopic pregnancies Hx # Pregnancies Multiple births # of living children 0 Past Pregnancies Del. Date Name GA/Weeks Outcome Route Bth Weight Gen Labor Lgth Anesthesia Del Locatn Provider FOB 05/26/23 5 spontaneous Visit Details Expected Delivery Route/Plan Labor Preferences- CB/BF classes: encouraged labor support person: Jose labor intervention preferences: [] pain management options preferred: limited if possible cut cord/dad catch: yes : yes PP control planned: discussed discussed possible routes of delivery and associated risks: [] special requests: [] Plans Covid status: [] Flu vaccine: declined Tdap vaccine:given Rhogam: na LARC form signed: yes Problem list reviewed and updated with the most current plan of care details and appropriate orders placed. Relevant counseling for the gestational age provided. Continue routine care and follow up unless otherwise noted in visit notes/problem list details OB Flowsheet Initial Weight: Not Recorded Date -?-?-?-?-?-?-?-?-?-?-?-?- EGA Weight BP Urine Prot -?-?-?-?-?-?-?-?-?-?-?-?- Glucose FHR FuHt Pres Dilation -?-?-?-?-?-?-?-?-?-?-?-?- Effaced St Visit Note 08/14/23 -?-?-?-?-?-?-?-?-?-?-?-?- 9w 5d 147 lb 4 oz 132/79 -?-?-?-?-?-?-?-?-?-?-?-?- 189 -?-?--?-?-?-?-?-?-?-?-?-?- JV- CRL consiste nt with early us. desires NIPT and carrier testing. 08/25/23 -?-?-?-?-?-?-?-?-?-?-?-?- 11w 2d 154 lb 2 oz 130/84 -?-?-?-?-?-?-?-?-?-?-?-?- 180 -?-?-?-?-?-?-?-?-?-?-?-?- Kw- no vb/crampi ng. FHT with handheld US today. work in for n/v/dehydration. vomiting 10+ times daily and unable to keep fluids down. To infusion center for IV hydration. 09/12/23 -?-?-?-?-?-?-?-?-?-?-?-?- 13w 6d 153 lb 6 oz 117/75 Nega tive -?-?-?-?-?-?-?-?-?-?-?-?- Negative 155 -?-?-?-?-?-?-?-?-?-?-?-?- KW- no vb/crampi ng. still having n/v. not vomiting every day now but still having more bad days than good. another order for IV hydration placed. 10/09/23 -?-?-?-?-?-?-?-?-?-?-?-?- 17w 5d 154 lb 2 oz 128/82 Nega tive -?-?-?-?-?-?-?-?-?-?-?-?- Negative 162 -?-?--?-?-?-?-?-?-?-?-?-?- MH-No VB, LOF. N o flutters yet. MFM US ordered 11/07/23 -?-?-?-?-?-?-?-?-?-?-?-?- 21w 6d 156 lb 8 oz 111/78 Nega tive -?-?-?-?-?-?-?-?-?-?-?--?- Negative 150 -?-?-?-?-?-?-?-?-?-?-?-?- SM- no vb lof go od fm n oregualr ctx declined afp testing, growth us q 4 weeks planned. 12/05/23 -?-?-?-?-?-?-?-?-?-?-?-?- 25w 6d 160 lb 6 oz 122/70 Nega tive -?-?-?-?-?-?-?-?-?-?-?-?- Negative 154 26 -?-?-?-?-?-?-?-?-?-?-?-?- MH-No VB, LOF. G ood FM. Has all growth US scheduled. Larc. 12/29/23 -?-?-?-?-?-?-?-?-?-?-?-?- 29w 2d 163 lb 2 oz 125/81 Nega tive -?-?-?-?-?-?-?-?-?-?-?-?- Negative 140 -?-?-?-?-?-?-?-?-?-?-?-?- SM- nst today, 3 hour gtt ordered rhogam given 01/04/24 -?-?-?-?-?-?-?-?-?-?-?-?- 30w 1d 164 lb 6 oz 117/74 Nega tive -?-?-?-?-?-?-?-?-?-?-?-?- Negative 145 29 -?-?-?-?-?-?-?-?-?-?-?-?- KW- NSt today. 3 hour gct after appt. no concerns has growth on monday01/12/24 -?-?-?-?-?-?-?-?-?-?-?-?- 31w 2d 164 lb 6 oz 120/79 Nega tive -?-?-?-?-?-?-?-?-?-?-?-?- Negative 140 -?-?-?-?-?-?-?-?-?-?-?-?- JV- fasting gluc ose levels are 80's , highest pp is 120. NST reactive 01/18/24 -?-?-?-?-?-?-?-?-?-?-?-?- 32w 1d 164 lb 8 oz 122/60 Nega tive -?-?-?-?-?-?-?-?-?-?-?-?- Negative 140 29 -?-?-?-?-?-?-?-?-?-?-?-?- MH-No VB, LOF. G ood FM. Reactive NST. All FBS <95, just 1 2 hr >120 and had dessert. Daily kick cts are good. Has MFM growth US 01/2101/25/24 -?-?-?-?-?-?-?-?-?-?-?-?- 33w 1d 167 lb 6.4 oz 125/75 Ne gative -?-?-?-?-?-?-?-?-?-?-?-?- Negative 130 -?--?-?-?-?-?-?-?-?-?-?-?- JV- nst reactive today. growth scan from monday in chart. AC <7th% and bpp was 01/07. 02/02/24 -?-?-?-?-?-?-?-?-?-?-?-?- 34w 2d 164 lb 4 oz 106/70 Nega tive -?-?-?-?-?-?-?-?-?-?-?-?- Negative 130 -?-?-?-?-?-?-?-?-?-?-?-?- SM- [facility], no reuglar ctx on monitor. no vb lof NST FHR Rate Baby A Baseline: 130 Variability:: Moderate Accelerations:: 15 x 15 Decelerations:: Late and Variable NST Reactive:: Yes FHR Category:: Category II Uterine Activity:: irregular ROS Constitutional Constitutional: Reports systems reviewed and no addt'l complaints, except as documented Eyes Eyes: Denies change in vision ENT HEENT: Reports systems reviewed and no addt'l complaints, except as documented; Denies headache(s) Cardiovascular Cardiovascular: Reports systems reviewed and no addt'l complaints, except as documented; Denies chest pain or dyspnea Respiratory/Chest Respiratory/Chest: Reports systems reviewed and no addt'l complaints, except as documented Gastrointestinal Gastrointestinal: Reports systems reviewed and no addt'l complaints, except as documented; Denies abdominal pain Genitourinary Genitourinary: Reports systems reviewed and no addt'l complaints, except as documented, contractions Details: present (irregular) and movement Details: present; Denies dysuria or genital lesions Musculoskeletal Musculoskeletal: Reports systems reviewed and no addt'l complaints, except as documented Neurologic Neurologic: Reports systems reviewed and no addt'l complaints, except as documented Endocrine Endocrinology: Reports systems reviewed and no addt'l complaints, except as documented Vital Signs Vital Signs Vital Signs: 02/07/24 10:20 02/07/24 10:20 02/07/24 10:20 Temperature Temperature Source Temporal Pulse Rate 87 Respiratory Rate Blood Pressure 109/73 BP Systolic 109 BP Diastolic 73 Pulse Ox 02/07/24 10:20 02/07/24 10:20 02/07/24 11:52 Temperature 97.9 F Temperature Source Pulse Rate Respiratory Rate 16 Blood Pressure 105/63 BP Systolic 105 BP Diastolic 63 Pulse Ox 02/07/24 11:52 02/07/24 11:52 02/07/24 11:52 Temperature Temperature Source Temporal Pulse Rate 89 Respiratory Rate 16 Blood Pressure BP Systolic BP Diastolic Pulse Ox 02/07/24 11:52 02/07/24 15:06 02/07/24 15:06 Temperature 97.6 F L Temperature Source Pulse Rate 101 H Respiratory Rate Blood Pressure 125/85 H BP Systolic 125 BP Diastolic 85 Pulse Ox 02/07/24 15:06 02/07/24 15:06 02/07/24 15:06 Temperature 98.0 F Temperature Source Temporal Pulse Rate Respiratory Rate 16 Blood Pressure BP Systolic BP Diastolic Pulse Ox 02/07/24 19:45 02/07/24 19:45 02/07/24 19:45 Temperature Temperature Source Temporal Pulse Rate 99 Respiratory Rate Blood Pressure 106/60 BP Systolic 106 BP Diastolic 60 Pulse Ox 02/07/24 19:45 02/07/24 19:45 02/07/24 23:11 Temperature 97.9 F Temperature Source Pulse Rate Respiratory Rate 16 Blood Pressure 97/52 L BP Systolic 97 BP Diastolic 52 Pulse Ox 02/07/24 23:11 02/07/24 23:11 02/07/24 23:11 Temperature Temperature Source Temporal Pulse Rate 74 Respiratory Rate 16 Blood Pressure BP Systolic BP Diastolic Pulse Ox 02/07/24 23:11 02/08/24 04:04 02/08/24 04:04 Temperature 98.1 F Temperature Source Pulse Rate 75 Respiratory Rate Blood Pressure 122/73 H BP Systolic 122 BP Diastolic 73 Pulse Ox 02/08/24 04:04 02/08/24 04:04 02/08/24 04:04 Temperature 98.0 F Temperature Source Temporal Pulse Rate Respiratory Rate 16 Blood Pressure BP Systolic BP Diastolic Pulse Ox 02/08/24 04:29 02/08/24 04:29 02/08/24 04:34 Temperature Temperature Source Pulse Rate 100 74 Respiratory Rate Blood Pressure BP Systolic BP Diastolic Pulse Ox 98 02/08/24 04:34 02/08/24 04:39 02/08/24 04:39 Temperature Temperature Source Pulse Rate 68 Respiratory Rate Blood Pressure BP Systolic BP Diastolic Pulse Ox 97 98 02/08/24 04:44 02/08/24 04:44 02/08/24 04:49 Temperature Temperature Source Pulse Rate 86 85 Respiratory Rate Blood Pressure BP Systolic BP Diastolic Pulse Ox 97 02/08/24 04:49 02/08/24 04:54 02/08/24 04:54 Temperature Temperature Source Pulse Rate 89 Respiratory Rate Blood Pressure BP Systolic BP Diastolic Pulse Ox 98 98 02/08/24 04:59 02/08/24 04:59 02/08/24 05:04 Temperature Temperature Source Pulse Rate 77 87 Respiratory Rate Blood Pressure BP Systolic BP Diastolic Pulse Ox 98 02/08/24 05:04 02/08/24 05:09 02/08/24 05:09 Temperature Temperature Source Pulse Rate 71 Respiratory Rate Blood Pressure BP Systolic BP Diastolic Pulse Ox 98 96 02/08/24 05:14 02/08/24 05:14 02/08/24 05:18 Temperature Temperature Source Pulse Rate 71 73 Respiratory Rate Blood Pressure BP Systolic BP Diastolic Pulse Ox 96 02/08/24 05:18 02/08/24 05:19 02/08/24 05:19 Temperature Temperature Source Pulse Rate 69 Respiratory Rate Blood Pressure BP Systolic BP Diastolic Pulse Ox 94 94 02/08/24 05:24 02/08/24 05:24 02/08/24 05:29 Temperature Temperature Source Pulse Rate 74 73 Respiratory Rate Blood Pressure BP Systolic BP Diastolic Pulse Ox 93 02/08/24 05:29 02/08/24 05:34 02/08/24 05:34 Temperature Temperature Source Pulse Rate 76 Respiratory Rate Blood Pressure BP Systolic BP Diastolic Pulse Ox 94 94 02/08/24 05:39 02/08/24 05:39 02/08/24 05:44 Temperature Temperature Source Pulse Rate 81 92 Respiratory Rate Blood Pressure BP Systolic BP Diastolic Pulse Ox 93 02/08/24 05:44 02/08/24 05:49 02/08/24 05:49 Temperature Temperature Source Pulse Rate 94 Respiratory Rate Blood Pressure BP Systolic BP Diastolic Pulse Ox 97 97 02/08/24 05:54 02/08/24 05:54 02/08/24 05:59 Temperature Temperature Source Pulse Rate 83 86 Respiratory Rate Blood Pressure BP Systolic BP Diastolic Pulse Ox 96 02/08/24 05:59 02/08/24 06:04 02/08/24 06:04 Temperature Temperature Source Pulse Rate 94 Respiratory Rate Blood Pressure BP Systolic BP Diastolic Pulse Ox 96 98 02/08/24 08:15 02/08/24 08:15 02/08/24 08:15 Temperature Temperature Source Pulse Rate 94 Respiratory Rate Blood Pressure 129/81 H BP Systolic 129 BP Diastolic 81 Pulse Ox 99 02/08/24 08:20 02/08/24 08:20 02/08/24 08:20 Temperature 97.5 F L Temperature Source Temporal Pulse Rate Respiratory Rate 16 Blood Pressure BP Systolic BP Diastolic Pulse Ox Weight Weight: 165 lb 12.8 oz Body Mass Index (BMI) 30.3 Physical Exam Const alert, oriented x3, no apparent distress and healthy appearing HEENT normocephalic and moist oral mucous membranes Head and Scalp: atraumatic Neck full ROM, no lymphadenopathy, supple and thyroid normal General: trachea midline Lymph Lymphatic: no lymphadenopathy noted Chest inspection of chest normal Resp normal respiratory effort Cardio regular rate GI normal to inspection, nondistended, normoactive bowel sounds, soft to palpation and non-tender Inspection: gravid external exam normal Manual OB Exam: estimated gestational size appropriate, presentation cephalic, dilated, effaced and station Extremity normal to inspection General Extremity: Negative for edema Skin no rashes or lesions noted Neuro no focal motor deficits and deep tendon reflexes 2+ bilaterally Motor Exam: strength 5/5 throughout and clonus absent Psych mental status grossly normal Labs Labs Labs: Blood Type O NEGATIVE Antibody Screen NEGATIVE Hct 35.0 % (37-47) L Hgb 11.9 g/dL (12.0-15.0) L Pap Smear Negative Obstetrics Ultrasound Syphilis Total Ab Non-reactive Rubella IgG Antibody Reactive (Nonreactive) Hep Bs Antigen Non-Reactive (Nonreactive) Hepatitis C Antibody Non-Reactive (Nonreactive) Chlamydia DNA ([facility]) Negative (Negative) N.gonorrhoeae DNA ([facility]) Negative (Negative) HIV 1&2 Antibody Non-Reactive (Nonreactive) Glucose 1 Hr 50 gm 143 mg/dL (70-140) H Gest Glucose Tolerance MG/DL Assessment & Plan (1) Non-reassuring heart rate or rhythm affecting management of fetus: COMMENT: 01/07 BPP and persistent intermittent decels- borderline MAREN recommend proceed with delivery (2) Variable heart rate decelerations, antepartum: (3) Gestational diabetes mellitus (GDM) affecting , antepartum: COMMENT: testing 4x daily. growth us at 36 weeks (4) Abnormal glucose affecting : COMMENT: 3 hour gtt ordered (5) IUGR (intrauterine growth restriction): COMMENT: MFM consult planned. Growth US Q2w, weekly unbilical artery doppler. Twice weekly testing. Daily kick counts. (6) Velamentous insertion of umbilical cord: QUALIFIERS: Trimester: third trimester Qualified Code(s): O43.123 - Velamentous insertion of umbilical cord, third trimester COMMENT: Growth US Q4wk and NSTs weekly at 32wk. (7) Rh negative state in antepartum period: COMMENT: Rhogam @ 28 weeks & PRN Bleeding(Pt had Rhogam 04/2023 at time of miscarriage) (8) Anxiety and depression: COMMENT: no meds. Stable. Has celexa Rx but not taking (9) Asthma: COMMENT: environmental induced (10) Supervision of high risk , antepartum: COMMENT: [id number], GURINDER 03/13/24, girl Aletha Jose (11) : QUALIFIERS: Weeks of gestation: 34 weeks Qualified Code(s): Z3A.34 - 34 weeks gestation of COMMENT: NIPT LR, carrier neg. , declined afp testing. anatomy nl PLAN: Plan tracing reviewed with another physician and delivery decision making discussed with patient and care team, decision to proceed with delivery and primary due to placental insufficiency. proceed with delivery.
--- NOTE | 2024-02-08 09:32 | EX.PCM.OBRPT ---
Assessment & Plan (1) Non-reassuring heart rate or rhythm affecting management of fetus: COMMENT: 01/07 BPP and persistent intermittent decels- borderline MAREN recommend proceed with delivery (2) Variable heart rate decelerations, antepartum: (3) Gestational diabetes mellitus (GDM) affecting , antepartum: COMMENT: testing 4x daily. growth us at 36 weeks (4) Abnormal glucose affecting : COMMENT: 3 hour gtt ordered (5) IUGR (intrauterine growth restriction): COMMENT: MFM consult planned. Growth US Q2w, weekly unbilical artery doppler. Twice weekly testing. Daily kick counts. (6) Velamentous insertion of umbilical cord: QUALIFIERS: Trimester: third trimester Qualified Code(s): O43.123 - Velamentous insertion of umbilical cord, third trimester COMMENT: Growth US Q4wk and NSTs weekly at 32wk. (7) Rh negative state in antepartum period: COMMENT: Rhogam @ 28 weeks & PRN Bleeding(Pt had Rhogam 04/2023 at time of miscarriage) (8) Anxiety and depression: COMMENT: no meds. Stable. Has celexa Rx but not taking (9) Asthma: COMMENT: environmental induced (10) Supervision of high risk , antepartum: COMMENT: [id number], GURINDER 03/13/24, girl Aletha Reggie (11) : QUALIFIERS: Weeks of gestation: 34 weeks Qualified Code(s): Z3A.34 - 34 weeks gestation of COMMENT: NIPT LR, carrier neg. , declined afp testing. anatomy nl Maternal Data Information GURINDER Calculator Estimated Delivery Date Method Current WG Current Estimate 03/13/24 Ultrasound #1 35w 1d Other Estimates 03/13/24 Ultrasound #2 35w 1d Details Operative Information Date of Procedure: 02/08/24 Pre-Operative Diagnosis: see a/p details Post-Operative Diagnosis: same Indications Narrative: Surgeon: Prachi Freitas MD Classification: RYLAND Procedure Type: low transverse manufacture specialist #1: Paco Quiros Type of Anesthesia: Spinal Special Medications: none Antibiotic Given: Ancef 2 grams IV x1 Drain: Pathak to straight drain Estimated Blood Loss: 700 Fluids Replaced: crystalloid Procedure Start Time: 10:06 Procedure Stop Time: 10:47 Findings Description of Procedure: Spinal anesthesia was placed without difficulty. Pathak catheter was placed. The patient was placed in the dorsal supine position with leftward tilt. Patient was prepped and draped in the normal sterile fashion. Pfannenstiel skin incision was made with the scalpel and carried through to the underlying layer of fascia with the scalpel. Fascia was nicked in the midline and the incision extended laterally. The rectus bellies were dissected off superiorly and inferiorly with out complication both sharply and bluntly. The peritoneum was entered digitally. The incision was stretched and a low transverse uterine incision was made with the scalpel. The infant's head was delivered atraumatically followed by the anterior and posterior shoulders without complication the rest of the infant delivered. The cord was clamped and cut and the infant was handed off to awaiting nurse. The placenta was delivered spontaneously immediately following and was noted to be intact and have a three-vessel cord. The uterus was exteriorized cleared of all clots and debris, and the incision was closed in a double layer closure using #1 Monocryl. The ovaries and fallopian tubes were noted to be within normal limits. The uterus was returned to the maternal abdomen and gutters were cleared of all clots and debris. The peritoneum was closed with 3-0 Monocryl in a running fashion. Gloves were changed prior to fascial closure. Fascia was closed with 0 PDS in a running fashion. Subcutaneous tissue was copiously irrigated and the skin was closed with 3-0 Monocryl in a subcuticular fashion. Mepilex dressing was applied without complication. Patient was taken to recovery in stable condition. It was discussed with the patient that based on the clinical information obtained during this encounter, combined with her history, at this time I would recommend vaginal or cesareans for future deliveries if further pregnancies are desired. Amniotic Membrane Rupture Type: Artificial Amniotic Fluid Description: Clear Placenta Disposition: [facility] Cord Vessel Description: 3 Vessels Delayed Cord Clamping: Yes Complications Risks of Surgery Discussed w/Patient: Bleeding, Infection, Need for Future C-Sections and Injury to surrounding structure(s) including bowel and bladder Vaginal Delivery Complication Complications: None Admit VTE Documentation VTE Present on Admission: No VTE Mechan Device Prophylaxis: SCD's Procedures Urinary/Genital [id number]: [id number] [facility]
--- NOTE | 2024-02-08 09:37 | PCM.DC ---
Discharge Instructions Diet Discharge Diet: No restrictions Activity Discharge Activity: May Not Drive (for 2 weeks or while taking narcotic pain medications.), May Shower and May Take a Tub Bath (in 7 days) May shower in (days): 0 May resume sexual activity in: 4-6 weeks Weight Bearing Status: Full weight bearing Lifting Restrictions: 20 pounds Dressing / Incision Call your doctor if your incision/area has: Continuous Slow Oozing, Sudden Increased Bleeding, Increased Pain/ Swelling, Increased Redness and Foul Smelling Discharge Call your doctor if you observe: Fever of 101 or Higher and Using more than 1 pad per hour (for 2 hours) Suture Line Care: Avoid Pulling/Pushing and Avoid Pinching/Bending Cleanse incision/area with: Soap & Water and Keep Dressing Clean & Dry Follow Up Care Please Follow Up With: Prachi Freitas MD When: Call [phone] to make an appointment for an incision check in 1-2 weeks. Test Results: Test results from this visit will be discussed in further detail at your follow-up appointment, if applicable. Discharge Plan Admission Admit Date/Time: 02/08/24 08:39 Attending Provider: Prachi Freitas Primary Care Provider: Care Physician,Karin Primary Discharge Orders/Prescriptions Prescriptions: New oxycodone-acetaminophen [Percocet] 5-325 mg tablet 1 tab PO Q6H PRN (Reason: pain) 7 Days Qty: 20 0RF naproxen 500 mg tablet 500 mg PO BID PRN PRN (Reason: Pain) Qty: 30 1RF No Action PNV-[place] 28-1-300 mg capsule 1 cap PO DAILY fluticasone propionate 44 mcg/actuation HFA aerosol inhaler 2 puff inhalation BID Rx Instructions: administer with spacer promethazine 12.5 mg tablet 12.5 mg PO Q6H PRN (Reason: nausea and vomiting) Qty: 60 3RF ondansetron 4 mg tablet,disintegrating 4 mg PO Q8H PRN (Reason: nausea and vomiting) Qty: 20 3RF (DME) blood-glucose meter [Blood Glucose Monitoring] Kit See Rx Instructions .Route Qty: 1 0RF Rx Instructions: Test 4 times daily. Once at fasting and 2 hrs post meals, breakfast, lunch, dinner (DME) Blood Glucose Test Strip See Rx Instructions .Route Qty: 50 4RF Rx Instructions: Test 4 times daily, Once at fasting then 2 hrs post meals, breakfast, lunch and dinner Referrals / Follow Up: Care Physician,No Primary [Primary Care Provider] - Disposition Disposition (needs filled in before D/C Order can be placed): Home, Self Care
[2024-02-08] MEDS: Cefazolin 2 GM in 0.9% Normal Saline (100mL Bag) 100 ML IV (09:45)
[2024-02-08 09:50] LABS: Bedside Glucose 66 mg/dL (74-106)
[2024-02-08 10:07] LABS: Syphilis Antibodies Non-reactive
[2024-02-08] MEDS: Oxytocin 15 Units/NS 250ml 15 UNITS/250 ML IV.SOLN 83 UNITS IV (11:05)
[2024-02-08 11:27] LABS: Bedside Glucose 189 mg/dL (74-106)
[2024-02-08] MEDS: Ketorolac 30 MG/ML Syringe IV ×2 (12:10→17:55)
[2024-02-08] MEDS: Senna/Docusate Sodium 1 Tablet PO (12:39)
[2024-02-08 12:50] LABS: Bedside Glucose 72 mg/dL (74-106)
[2024-02-08] MEDS: Lactated Ringers 1,000 ML 100 ML IV (14:12)
[2024-02-08] MEDS: Ondansetron 4 MG/2 ML Vial IV (17:06)
--- NOTE | 2024-02-08 18:15 | CASEMGMT ---
Social Work Brief Assessment Labor and Delivery Unit Patient Address: [address] [place] [address]., [place] [address] Phone number: [phone] Date of Referral/Notification: 02/08/2024 Time of Referral: [phone] Referred By: Dr. Prachi Freitas Date of Intervention: 02/08/2024 Time of Intervention: Approximately [id number] Reason for Referral: Maternal depression; patient's father with alcoholism Informant: Medical record and mother of baby (MOB) Neal Palma; father of baby (FOB) Reggie Demarco present for part of conversation. History: EFE is a 23 year old female, to the [facility] and together for the last 4 years. EFE is to 1 after delivering Aletha Palma on 02.08.24 via [place] delivery. 35 weeks gestation at time of . Apgars 9 and 9 at 1 and 5 minutes of life respectively. weight 4 pounds 6 ounces. Concerns for nonreassuring heart tones and IUGR, which resulted in early delivery. Infant been admitted to [facility] nursery. MOB reports during she developed gestational diabetes. Reports also there was stress during the due to appearing to have short long bones via scan. 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 FOB reports to work at [employer] in [facility]. FOB will have 1 month off of work. Both MOB and FOB reported history of depression and anxiety and both are treated with antidepressants. MOB reports was taking Celexa and Atarax but quit the Celexa at beginning of . Reports will return to this medication if symptoms of arise. MOB reports as a teenager did have a brief episode of suicidal ideation, no planning or attempts. Reports this is when she got into counseling. Denies any suicidal ideations outside of that 1 episode and nothing during this . During private conversation with the MOB, MOB denies any type of domestic violence or intimate partner violence. EFE's father does have history of alcohol use issues. Both parents deny any substance use issues for themselves. Assessment:, Introducing to self and social work role. 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 Both MOB and FOB engaged in conversation, appeared relaxed with each other and respectful. MOB and FOB reported to have good support system from both sides of the family. No reported safety concerns from any of the family. MOB and FOB reported to have all necessary supplies to care for the infant including diapers, wipes, cradle, pack and play, car seat and to breast pumps. Plans to breast-feed. Denies concerns with transportation housing or access to basic needs. Educated to mood and anxiety disorder, risk factors and importance of seeking out help and support should symptoms arise. MOB's [place] depression screening with a score of 7, falling below the threshold for current concerns. MOB reports plan to return back to antidepressant if needed. Educated to help [facility] services, but parents declined referral at this point. Denies need for any community resources at this point. Educated MOB at social work will be following while in the special care nursery, and will be returning to the later time to provide written material mood and anxiety disorders. Plan: MOB and infant will discharge home when both are ready for the respective discharges. -TAMMY [place]ied[place], MANNY *This note was generated with [employer]ellar dictation software. It may contain incorrect words, spelling, and punctuation that were not noted in review of the chart prior to signing*
[2024-02-09] MEDS: Ketorolac 30 MG/ML Syringe IV ×2 (00:09→06:12)
[2024-02-09 00:10] VITALS: BP 122/78; PULSE 68; RESP 16; TEMP 36.9; O2SAT 100
[2024-02-09] MEDS: 0.9% Saline Lock 10 ML Syringe IV ×2 (00:11→06:12)
[2024-02-09 03:15] LABS: Hematocrit 36.7 % (37-47); Hemoglobin 12.4 g/dL (12.0-15.0); Mean Corp Hgb Conc 33.8 g/dL (32-36); Mean Corpuscular Hgb 28.6 pg (27.0-32.0); Mean Corpuscular Volume 84.8 fL (81-99); Mean Platelet Vol. 10.2 fl (6.2-12.0); Platelet Count 198 K/mm3 (150-450); RBC Distribution Width CV 14.1 % (11.6-14.6); RBC Distribution Width SD 43.2 fl (35.1-43.9); Red Blood Count 4.33 M/mm3 (4.2-5.4); White Blood Count 11.2 K/mm3 (4.4-11.0)
[2024-02-09 03:40] VITALS: BP 112/78; PULSE 64; RESP 16; TEMP 36.8; O2SAT 98
[2024-02-09] MEDS: Acetaminophen 500 MG Tablet 1000 MG PO ×2 (03:42→09:43)
[2024-02-09 06:40] LABS: Bedside Glucose 78 mg/dL (74-106)
--- NOTE | 2024-02-09 07:26 | PN.OBGYN_ITS ---
Subjective Subjective Patient doing well without complaints. Tolerating PO. Ambulating and voiding without difficulty. Feeding well. Denies chest pain, shortness of breath, calf pain/swelling, fevers, chills, lightheadedness. Objective Data Objective Data Vital Signs: Vital Signs Temp Pulse Resp BP Pulse Ox O2 Del Method 98.2 F 64 16 112/78 98 Room Air 02/09/24 03:40 02/09/24 03:40 02/09/24 03:40 02/09/24 03:40 02/09/24 03:40 02/09/24 03:40 Oxygen Delivery Method Room Air Weight: 165 lb 12.8 oz Body Mass Index (BMI) 30.3 Intake & Output: Intake and Output for Last 24 Hours 02/07/24 02/08/24 02/09/24 23:59 23:59 23:59 Intake Total 1000 / 1000 3370.00 / 3370.00 0 / 0 Output Total 2450 / 2450 500 / 500 Balance 1000 / 1000 920.00 / 920.00 -500 / -500 Lab / Micro Data Attestation: I reviewed the patient's lab results. 02/09/24 02:55 Labs: Laboratory Results - last 24 hr 02/08/24 08:51: POC Glucose 66 L 02/08/24 09:10: WBC Cancelled, Corrected WBC Cancelled, RBC Cancelled, Hgb Cancelled, Hct Cancelled, MCV Cancelled, MCH Cancelled, MCHC Cancelled, RDW Std Deviation Cancelled, RDW Coeff of Fran Cancelled, Plt Count Cancelled, MPV Cancelled, Immature Gran % (Auto) Cancelled, Neut % (Auto) Cancelled, Lymph % (Auto) Cancelled, [place] % (Auto) Cancelled, Eos % (Auto) Cancelled, Baso % (Auto) Cancelled, Absolute Neuts (auto) Cancelled, Absolute Lymphs (auto) Cancelled, Total Counted Cancelled, Neutrophils % (Manual) Cancelled, Band Neutrophils % Cancelled, Lymphocytes % (Manual) Cancelled, Monocytes % (Manual) Cancelled, Eosinophils % (Manual) Cancelled, Basophils % (Manual) Cancelled, Metamyelocytes % Cancelled, Myelocytes % Cancelled, Promyelocytes % Cancelled, Blast Cells % Cancelled, Plasma Cell % (Manual) Cancelled, Other Cells % Cancelled, Nucleated RBC % Cancelled, Nucleated RBCs/100 WBC Cancelled, Differential Comment Cancelled, Diff Path Review Cancelled, Hypersegmented Neuts Cancelled, Atypical Lymphocytes Cancelled, Reactive Lymphocytes Cancelled, Smudge Cells Cancelled, Toxic Granulation Cancelled, Toxic Vacuolation Cancelled, Dohle Bodies Cancelled, Chidi Rods Cancelled, Platelet Estimate Cancelled, Plt Morphology Comment Cancelled, RBC Morphology Cancelled 02/08/24 09:10: RBC Morphology Cancelled, Polychromasia Cancelled, Hypochromasia Cancelled, Basophilic Stippling Cancelled, Anisocytosis Cancelled, Microcytosis Cancelled, Macrocytosis Cancelled, Spherocytes Cancelled, Sickle Cells Cancelled, Target Cells Cancelled, Tear Drop Cells Cancelled, Ovalocytes Cancelled, Stomatocytes Cancelled, [place] Bodies Cancelled, [place] Cells Cancelled, Bite Cells Cancelled, Crenated Cell Cancelled, Acanthocytes (Spur) Cancelled, Rouleaux Cancelled, Schistocytes Cancelled, Syphilis Total Ab Non- reactive 02/08/24 09:41: POC Glucose 189 H 02/08/24 12:22: POC Glucose 72 L 02/09/24 02:55: WBC 11.2 H, RBC 4.33, Hgb 12.4, Hct 36.7 L, MCV 84.8, MCH 28.6, MCHC 33.8, RDW Std Deviation 43.2, RDW Coeff of Fran 14.1, Plt Count 198, MPV 10.2 02/09/24 06:10: POC Glucose 78 Radiography Diagnostic Testing: Radiology Impression Biophysical Profile Ultrasound 02/08/24 06:00 IMPRESSION: biophysical profile of 68. No continuous breathing was noted. Electronically Signed: Camacho Lemus MD at 8:53 EDT , ROS Constitutional Constitutional: Reports systems reviewed and no addt'l complaints, except as documented; Denies anorexia or headache(s) Cardiovascular Cardiovascular: Reports systems reviewed and no addt'l complaints, except as documented; Denies dizziness, dyspnea, nausea or tachypnea Respiratory/Chest Respiratory/Chest: Reports systems reviewed and no addt'l complaints, except as documented; Denies cough, dyspnea, shortness of breath at rest or tachypnea Gastrointestinal Gastrointestinal: Reports systems reviewed and no addt'l complaints, except as documented; Denies abdominal pain, constipation or nausea Genitourinary Genitourinary: Reports systems reviewed and no addt'l complaints, except as documented; Denies burning urination, difficulty urinating, dysuria, urinary frequency or urinary incontinence Musculoskeletal Musculoskeletal: Reports systems reviewed and no addt'l complaints, except as documented Integumentary Integumentary: Reports systems reviewed and no addt'l complaints, except as documented Neurologic Neurologic: Reports systems reviewed and no addt'l complaints, except as documented; Denies abnormal speech, dizziness or headache(s) Psychiatric Psychiatric: Reports systems reviewed and no addt'l complaints, except as documented Endocrine Endocrinology: Reports systems reviewed and no addt'l complaints, except as documented Hematologic/Lymphatic Hematologic/Lymphatic: Reports systems reviewed and no addt'l complaints, except as documented Physical Exam Const alert, oriented x3 and no apparent distress Neck full ROM Resp normal respiratory effort, normal air movement and no retractions Effort and Inspection: able to speak in complete sentences and symmetric chest movement GI soft to palpation Inspection: incision intact Bladder / Kidney Exam: bladder normal to palpation Uterus Palpation: uterus fundus firm Extremity normal to inspection and full ROM Psych mental status grossly normal, thought process normal and cooperative Assessment & Plan (1) Non-reassuring heart rate or rhythm affecting management of fetus: COMMENT: 01/07 BPP and persistent intermittent decels- borderline MAREN recommend proceed with delivery PLAN: s/p LTCS PPD # 1 1. routine post care 2. breast feeding- support given 3. rh positive 4. rubella immune 5. Discharge home (2) Variable heart rate decelerations, antepartum: (3) Gestational diabetes mellitus (GDM) affecting , antepartum: COMMENT: testing 4x daily. growth us at 36 weeks (4) Abnormal glucose affecting : COMMENT: 3 hour gtt ordered (5) IUGR (intrauterine growth restriction): COMMENT: MFM consult planned. Growth US Q2w, weekly unbilical artery doppler. Twice weekly testing. Daily kick counts. (6) Velamentous insertion of umbilical cord: QUALIFIERS: Trimester: third trimester Qualified Code(s): O43.123 - Velamentous insertion of umbilical cord, third trimester COMMENT: Growth US Q4wk and NSTs weekly at 32wk. (7) Rh negative state in antepartum period: COMMENT: Rhogam @ 28 weeks & PRN Bleeding(Pt had Rhogam 04/2023 at time of miscarriage) (8) Anxiety and depression: COMMENT: no meds. Stable. Has celexa Rx but not taking (9) Asthma: COMMENT: environmental induced (10) Supervision of high risk , antepartum: COMMENT: [id number], GURINDER 03/13/24, girl Aletha Reggie (11) : QUALIFIERS: Weeks of gestation: 34 weeks Qualified Code(s): Z 3A.34 - 34 weeks gestation of COMMENT: NIPT LR, carrier neg. , declined afp testing. anatomy nl (12) Status post primary low transverse section: Charges/Coding Multi Select Codes Urinary/Genital Urinary/Genital CPT Codes: No Charge
[2024-02-09 09:33] VITALS: BP 117/72; PULSE 79; RESP 16; TEMP 37; O2SAT 100
[2024-02-09] MEDS: Senna/Docusate Sodium 1 Tablet PO (10:07)
--- NOTE | 2024-02-09 10:37 | NURSING ---
mothers milk from [facility] returned to mom on discharge. Milk labels verified with [facility] nurse Mario Brice RN
== END 2024-02-09 10:20 | disposition home or self-care (01) | DRG 788 ==
LOC: WPOUT 16:28 → WP 16:35
PROVIDERS: Obstetrics & Gynecology; Admitting Provider Obstetrics & Gynecology; Referring Provider Obstetrics & Gynecology; Visit Provider Obstetrics & Gynecology
DX: O36.5130 Maternal care for known or suspected placental insufficiency, third trimester, not applicable or unspecified (principal); O24.429 Gestational diabetes mellitus in childbirth, unspecified control; O43.123 Velamentous insertion of umbilical cord, third trimester; O76 Abnormality in fetal heart rate and rhythm complicating labor and delivery; Z3A.34 34 weeks gestation of pregnancy; Z37.0 Single live birth; Z79.51 Long term (current) use of inhaled steroids
CPT/HCPCS: 76819; 82962; 84112; 85025; 85027; 86780; 86850; 86900; 86901; 99221; J7120; A4216; G0378; J2405

== ENCOUNTER 2024-08-19 13:13 | Emergency (ER) | payer BC, SELFPAY ==
[2024-08-19 13:14] VITALS: BP 132/81; PULSE 77; RESP 20; TEMP 36.5; O2SAT 100; BMI 24.7
--- NOTE | 2024-08-19 14:01 | EDS_ITS ---
HPI HPI - Psych History of Present Illness Chief Complaint: Suicidal Informant: patient Onset/Context/Timing Onset: Weeks Context: Gradual Onset Timing: Continuous Current Severity: Mild Maximum Severity: Mild Associated Symptoms Associated Symptoms - Psych: Positive for Depressed and Suicidal Thoughts Specific plan (suicidal thought): No plan. No prior attempt. No prior admission. On antidepressant. Narrative Narrative: 23-year-old female G 2P1 Ab1 with that being a miscarriage. Had her last child on February 07. Patient said during the she did well but since she gave she has had depression. Currently is back on her antidepressants Celexa. Just that she has been more depressed lately. Has had suicidal thoughts but no intent. No plan. No prior attempt. No prior psychiatric admission. Currently she is not seen in either a psychiatrist or counselor. Denies any drug use or abuse. Prior similar symptoms: Yes Recent Illness/Hospitalization: No PFSH PFSH Medical History Variable heart rate decelerations, antepartum Non-reassuring heart rate or rhythm affecting management of fetus Asthma Depression Anxiety Gestational diabetes IBS (irritable bowel syndrome) History of miscarriage, currently Home Medications ?Medication ?Instructions ?Recorded ?Last Taken ?Type citalopram 20 mg tablet (Celexa) 30 mg (1.5 x 20 mg) PO DAILY #60 03/08/24 Unknown Rx tabs etonogestrel 0.12 mg-ethinyl 1 vag ring vaginal ONCE 3 weeks #1 03/21/24 Unknown Rx estradiol 0.015 mg/24 hr vaginal ea ring (NuvaRing) hydroxyzine HCl 25 mg tablet 25 mg PO TID-QID PRN anxiety #60 04/19/24 Unknown Rx tabs Allergy/AdvReac Type Severity Reaction Status Date / Time No Known Allergies Allergy Verified 03/21/24 10:49 Family History Mother Breast cancer, Onset Age: 38 Father CAD (coronary artery disease) Surgical History Status post primary low transverse section [place] teeth extracted Social History adopted: No household members: spouse number of children: 1 current occupational status: employed current occupation: [employer]- current occupational exposures/hazards: No pets and animals: Yes pets and animals: cat(s) and other details: [place] history of recent travel: No sexually active: Yes Smoking Status: Never smoker alcohol intake: current alcohol intake frequency: holidays/special occasions only details: NOT WHILE substance use type: does not use well-balanced diet: daily or most days caffeine: No eating out: 1-3 times/week during the past year weight has: remained stable what type of physical activity do you participate in: none lalito/anglican: None seatbelt use: always do you feel safe at home: Yes additional social history: -JOSE STEEN ROS ROS ED ROS Narrative Denies recent illness. Constitutional Constitutional ED: Denies chills or fever(s) Eyes Eyes: Denies blurry vision ENT ENT ED: Denies ear pain Cardiovascular Cardiovascular: Denies chest pain Respiratory/Chest Respiratory/Chest: Denies cough or dyspnea Gastrointestinal Gastrointestinal: Denies abdominal pain Genitourinary Genitourinary ED: Denies dysuria or hematuria Musculoskeletal Musculoskeletal: Denies arthralgias Integumentary Denies abscess Neurologic Neurologic: Denies headache(s) Psychiatric Psychiatric: Reports depression and suicidal thoughts Endocrine Endocrinology: Denies polydipsia or polyphagia Hematologic/Lymphatic Hematologic/Lymphatic: Denies easy bleeding Allergic/Immunologic Allergic/Immunologic ED: Denies mouth swelling, tongue swelling or urticaria EXAM Physical Exam Narrative Exam Narrative: Well-appearing 23-year-old female. Vital signs stable afebrile. Pulse ox 100% on room air no hypoxia. No distress. H EENT exam normal. Pupils round react light. Mytrex membranes. No trauma. Neck nontender. No trauma. No lymphadenopathy. Lungs clear to auscultation. Heart regular rhythm no murmur. Chest wall and ribs nontender. Abdomen soft nontender. Moving all 4 extremities. Nontender no edema. No signs of trauma. No track baugh. No old laceration scars. Back nontender. Neurologically she is awake and alert. No focal motor deficits. Answering questions following commands. No toxidrome. No smell of alcohol. Const Vital Signs: 08/19/24 13:14 08/19/24 14:13 Temperature 97.7 F L Temperature Source Temporal Pulse Rate 77 71 Respiratory Rate 20 H 16 Blood Pressure 132/81 H 128/77 H Blood Pressure Mean 98 94 Pulse Ox 100 98 Oxygen Delivery Method Room Air Positive well nourished and well developed; Negative for obese, cachectic, contractures or unkempt General Appearance ED: well developed and NAD; Negative for unkempt, cachectic, contractures or pallor Nutritional Appearance: Negative for cachectic or obese HEENT Reports moist mucous membranes normocephalic and atraumatic; Negative for trauma or tenderness Eyes PERRL and EOMs intact bilaterally General Eye ED: Negative for pale conjunctiva or scleral icterus Neck no lymphadenopathy, supple and no JVD General: Negative for tenderness Resp normal respiratory effort and clear to auscultation bilaterally Auscultation: Negative for rales, rhonchi or wheezes Cardio S1 normal heart sound, S2 normal heart sound and no murmurs Rate: regular rate Rhythm: regular rhythm GI non-tender, non-distended and no masses Auscultation: normoactive bowel sounds Palpation: soft; Negative for tender, guarding or mass Back/Spine no CVA tenderness General Back: Negative for CVA tenderness Cervical Spine: Negative for cervical spine tenderness Thoracic Spine / Upper Back: Negative for thoracic spinal tenderness Lumbar Spine / Lower Back: Negative for lumbar spinal tenderness Extremity normal to inspection General Extremety ED: Negative for edema or tenderness General Extremity: Negative for edema Neuro oriented x3 and CN's II-XII intact bilaterally Sensorium / Orientation: alert, oriented to person, oriented to place and oriented to time; Negative for orientation impaired, confused or lethargic Motor Exam: strength 5/5 throughout Psych mental status grossly normal, thought process normal, cooperative, speech normal, activity/motor behavior normal, denies hallucinations and denies homicidal ideation Appearance: grossly normal; Negative for unkempt Attitude: calm, engaged, No paranoid, No uncooperative, No evasive, No guarded, No belligerent, No agitated, No aggressive and No hostile Activity / Motor Behavior: appropriate eye contact Speech: normal speech Mood & Affect: depressed Thought Content: normal thought content Attention / Concentration: attention grossly intact Memory / Cognition: memory grossly intact Insight: insight good Judgement: judgement good Skin General Skin Exam: Negative for jaundice or pallor Lesions: no lesions Rashes: no rashes Trauma: Negative for abrasion or laceration MDM MDM MDM Narrative Medical decision making narrative: 23-year-old female had gave in January and has had depression since then. Is on antidepressant. Having more thoughts. No prior attempt. She will be evaluated by our healthcare social worker. Medically she is cleared. She denies any plan or prior attempt. Our healthcare social worker evaluated the patient. Both she and I are comfortable with patient being discharged to home. Safety plan. Patient is comfortable that also. utility worker forge is coordinating patient following up with [facility]. Patient is comfortable with the plan. Doing well at 3:10 PM. Discharge Plan Triage Chief Complaint: Suicidal ED Provider: Paco Almaguer Dx/Rx/DC Orders Clinical Impression: Depression Instructions: ED Depression Prescriptions: No Action etonogestrel-ethinyl estradiol [NuvaRing] 0.12-0.015 mg/24 hr ring 1 vag ring vaginal ONCE 21 Days Qty: 1 12RF citalopram [Celexa] 20 mg tablet 30 mg PO DAILY Qty: 60 6RF hydroxyzine HCl 25 mg tablet 25 mg PO TID-QID PRN (Reason: anxiety) Qty: 60 3RF Primary Care Provider: Fernanda Vallecillo LOAN AND CREDIT MANAGER Referrals: Care Physician,No Primary [Non-Staff] - Activity Restrictions/Additional Instructions: Continue your current medications. Call and follow-up with your [facility] mental health professional soon as possible. Return if feeling worse or feeling like you would actually harm yourself. Print Language: [place] Disposition Disposition: Home, Self Care
--- NOTE | 2024-08-19 14:02 | ED.RN ---
per Dr. Almaguer, pt does not require a sitter at this time only MHC with social work
--- NOTE | 2024-08-19 14:11 | ED.RN ---
Per Dr Almaguer, no need for sitter.
[2024-08-19 14:13] VITALS: BP 128/77; PULSE 71; RESP 16; O2SAT 98
[2024-08-19 15:00] VITALS: BP 121/64; PULSE 65; RESP 16; O2SAT 99
[2024-08-19 15:44] VITALS: BP 121/64; PULSE 65; RESP 16; TEMP 37; O2SAT 99
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
--- NOTE | 2024-08-19 17:17 | CM.ED ---
Social work As part of the patient's safety plan, patient's , Reggie, agreed via phone call to lock up medication, guns, and knives. Patient stated a desire to get medications that worked well with managing patient's depression. Called and spoke with [facility] ([phone]) who stated patient could not be seen for an intake before September 2024. Called and spoke with [facility] ([phone]) who stated patient could be seen as early as August 30 for a psychiatric intake. Called and left a voicemail with [facility] ([phone]) to ask about their first available psychiatric appointment. This SW called patient and expressed the above. Patient stated being able to continue receiving medication through [facility] and denied need for the above psychiatric providers. This SW called [facility] ([phone]) and spoke with Dr. Thompson. Dr. Thompson received update on patient and stated the ability to call patient and begin a new depression medication for patient. No other needs identified at this time. Jodie Cordoba, FOOT SPECIALIST, PUBLICIST
--- NOTE | 2024-08-20 10:23 | CM.ED ---
Social Work SW called patient to follow up on visit to ER yesterday for suicidal ideations. Patient stated she had an okay evening and was feeling a little bit better today. Patient confirmed that was able to get medications locked away, that fire arms were inaccessible and knives in a safe location. Patient again stated that she was not interested in a follow up counseling or psychiatry appointment. Patient did state that she and her physician were had made a few phone calls back and forth but had not yet connected. Patient states she plans to call her doctor this morning. Patient reminded to come back to ED should her symptoms become worse. Patient expressed understanding. Daxa Tena, OUTSOLE SCHEDULER, CEMETERY KEEPER
== END 2024-08-19 15:56 | disposition home or self-care (01) ==
PROVIDERS: Emergency Provider Emergency Medicine; PCP Registered Nurse; Visit Provider Emergency Medicine
DX: F32.A Depression, unspecified (principal); F41.9 Anxiety disorder, unspecified; R45.851 Suicidal ideations; J45.909 Unspecified asthma, uncomplicated; Z79.899 Other long term (current) drug therapy
CPT/HCPCS: 99283

== ENCOUNTER → 2025-05-21 | Outpatient (CLI) | payer BC, SELFPAY ==
[2025-05-21 12:18] LABS: Hematocrit 41.3 % (37-47); Hemoglobin 14.1 g/dL (12.0-15.0); Immature Granulocytes Count 0.030 X10^3/uL (0.0-0.0); Mean Corp Hgb Conc 34.1 g/dL (32-36); Mean Corpuscular Volume 84.3 fL (81-99); Mean Platelet Vol. 10.3 fl (6.2-12.0); NRBC Flagged by Analyzer 0 % (0-5); Platelet Count 350 K/mm3 (150-450); RBC Distribution Width CV 13.9 % (11.6-14.6); RBC Distribution Width SD 42.2 fl (35.1-43.9); Red Blood Count 4.90 M/mm3 (4.2-5.4); White Blood Count 7.4 K/mm3 (4.4-11.0)
[2025-05-21 13:18] LABS: HIV Nonreactive (Nonreactive); Hepatitis B Surface Antigen Nonreactive (Nonreactive); Hepatitis C Antibody Nonreactive (Nonreactive); Syphilis Antibodies Nonreactive (Nonreactive)
[2025-05-23 06:08] LABS: Chlamydia By Nucleic Acid AMP Negative (Negative); Gonococcus By Nucleic Acid AMP Negative (Negative)
== END | disposition home or self-care (01) ==
PROVIDERS: PCP Registered Nurse; Visit Provider Obstetrics & Gynecology
DX: O09.299 Supervision of pregnancy with other poor reproductive or obstetric history, unspecified trimester (principal); Z86.32 Personal history of gestational diabetes; Z3A.00 Weeks of gestation of pregnancy not specified
CPT/HCPCS: 36415; 83036; 85025; 86703; 86762; 86780; 86803; 86850; 86900; 86901; 87086; 87340; 87491; 87591